=== PATIENT | male | born 1955 | race Caucasian/White ===

== ENCOUNTER 2018-08-28 04:54 | Inpatient (IN) ==
[2018-08-25 16:30] LABS: Appearance,Urine CLEAR; Bilirubin,Urine NEG (NEG); Color,Urine AMBER; Culture Indicated,Urine NO; Glucose,Urine (UA) NEGATIVE (NEG); Ketones,Urine NEG (NEG); Leukocyte Esterase,Urine NEG /uL (NEG); Nitrate,Urine NEG (NEG); Protein,Urine NEG (NEG); Specific Gravity,Urine 1.021 (1.000-1.035); Urine Blood NEG mg/dL (<0.03); Urobilinogen,Urine NEG (NEG)
[2018-08-25 19:18] LABS: Basophils # (Auto) 0 K/mcL (0.0-0.3); Basophils % (Auto) 0.4 % (0.0-2.0); Eosinophils # (Auto) 0.1 K/mcL (0.0-0.7); Eosinophils % (Auto) 0.7 % (0.0-7.0); Granulocytes % (Auto) 65.2 % (38.0-78.0); Hemoglobin 11.6 g/dL (13.5-16.5); Lymphocytes # (Auto) 2.5 K/mcL (1.5-4.8); Mean Cell Volume 101.4 fL (80.0-100.0); Mean Corpuscular HGB Conc 32.3 g/dL (31.0-36.0); Mean Platelet Volume 8.7 fL (7.4-10.4); Monocytes # (Auto) 0.7 K/mcL (0.1-0.9); Monocytes % (Auto) 7.7 % (1.0-12.0); Platelet Count 236 K/mcL (140-440); RBC 3.55 M/mcL (4.50-5.90); Red Cell Distribution Width 14.7 % (11.5-14.5); WBC 9.6 K/mcL (4.5-11.0)
[2018-08-25 19:23] LABS: Blood Urea Nitrogen 23 mg/dl (8-23); Calcium 8.2 mg/dl (8.6-10.4); Carbon Dioxide 19 mmol/L (22-30); Chloride 105 mmol/L (96-108); Glomerular Filtration Rate 94; Glucose 99 mg/dL (70-105); Potassium 4.2 mmol/L (3.3-5.1); Sodium 137 mmol/L (133-145)
[2018-08-25 19:47] LABS: Estimated Average Glucose(eAG) 111 mg/dL; Hemoglobin A1C 5.5 % HGB (4.0-6.0)
[2018-08-25 19:59] LABS: Prothrombin Time 12.9 sec (11.9-14.5)
[~2018-08-28 04:54] MED LIST: IPRATROPIUM/ALBUTEROL 3 ML AMPUL.NEB NEB PRN; SCOPOLAMINE 1 PATCH PATCH TOPICAL PRN
[2018-08-28] MEDS ORDERED: 0.9 % SODIUM CHLORIDE 9 ML, KETOROLAC 30 MG, ROPIVACAINE HCL/PF 49.5 ML, EPINEPHrine 0.... IJ SCH (06:00)
[2018-08-28] MEDS ORDERED: ceFAZolin 2 GM in DEXTROSE 5% IN WATER 50 ML IV SCH (06:00)
[2018-08-28] MEDS ORDERED: fentaNYL 100 MCG/2 ML VIAL IV ONE (07:35)
[2018-08-28] MEDS ORDERED: ONDANSETRON 4 MG/2 ML VIAL IV ONE (07:35)
[2018-08-28] MEDS ORDERED: MIDAZOLAM 2 MG/2 ML VIAL IV ONE (07:35)
[2018-08-28] MEDS ORDERED: TRANEXAMIC ACID 1,000 MG/10 ML VIAL IV ONE ×2 (07:35→10:00)
[2018-08-28] MEDS ORDERED: FAMOTIDINE/PF 20 MG/2 ML VIAL IV ONE (07:35)
[2018-08-28] MEDS ORDERED: GLYCOPYRROLATE 0.2 MG/ML VIAL IV ONE (07:35)
[2018-08-28] MEDS ORDERED: ROPIVACAINE HCL/PF 20 ML VIAL IJ ONE (07:35)
[2018-08-28] MEDS ORDERED: GENTAMICIN SULFATE 800 MG/20 ML VIAL IR ONE (07:54)
[2018-08-28] MEDS ORDERED: FLUMAZENIL 0.1 MG/ML ML IV PRN (09:11)
[2018-08-28] MEDS ORDERED: fentaNYL 100 MCG/2 ML VIAL IV PRN (09:11)
[2018-08-28] MEDS ORDERED: ePHEDrine 50 MG/ML AMPUL IV PRN (09:11)
[2018-08-28] MEDS ORDERED: NALOXONE HCL 0.4 MG/ML VIAL IV PRN (09:11)
[2018-08-28] MEDS ORDERED: ONDANSETRON 4 MG/2 ML VIAL IV PRN ×2 (09:11→10:00)
[2018-08-28] MEDS ORDERED: diphenhydrAMINE 50 MG/ML VIAL IV PRN (09:11)
[2018-08-28] MEDS ORDERED: METHOCARBAMOL 1,000 MG/10 ML VIAL IV PRN ×2 (09:11→10:00)
[2018-08-28] MEDS ORDERED: IPRATROPIUM/ALBUTEROL 3 ML AMPUL.NEB NEB PRN (09:11)
[2018-08-28] MEDS ORDERED: ACETAMINOPHEN 1,000 MG/100 ML BOTTLE IV ONE (09:11)
[2018-08-28] MEDS ORDERED: ATROPINE SULFATE 0.4 MG/ML VIAL IV PRN (09:11)
[2018-08-28] MEDS ORDERED: MEPERIDINE 25 MG/ML SYRINGE IV PRN (09:11)
[2018-08-28] MEDS ORDERED: METOPROLOL TARTRATE 5 MG/5 ML VIAL IV PRN (09:11)
[2018-08-28] MEDS ORDERED: HYDROmorphone 2 MG/ML VIAL IV PRN (10:00)
[2018-08-28] MEDS ORDERED: MAGNESIUM HYDROXIDE 30 ML ORAL.SUSP PO PRN (10:00)
[2018-08-28] MEDS ORDERED: POLYETHYLENE GLYCOL 3350 17 GM PACKET PO PRN (10:00)
[2018-08-28] MEDS ORDERED: BENZOCAINE/MENTHOL 1 LOZENGE PO PRN (10:00)
[2018-08-28] MEDS ORDERED: BISACODYL 10 MG SUPP.RECT PR PRN (10:00)
[2018-08-28] MEDS ORDERED: FLEETS ADULT ENEMA PR PRN (10:00)
[2018-08-28] MEDS ORDERED: ALBUTEROL SULFATE 2.5 MG IH PRN (10:05)
[2018-08-28] MEDS ORDERED: ALBUTEROL SULFATE 1 PUFF INHALER IH PRN (10:05)
--- NOTE | 2018-08-28 10:09 | Orthopedic Procedure Note ---
Date of procedure: Note initiated : 08/28/18 at 10:07 am Service Date, if different from initiated Date: [] Pre-op diagnosis: DJD left knee Post-op diagnosis: same Procedure: tkr using MIKE Grafts/Implants: 5 FEMUR, 5 TIBIA, 10 INSERT, 32 ASYMMETRIC PATELLA Anesthesia: spinal Surgeon: Edmond Ragland Record Tabulating Clerk: Jan Foreman Estimated blood loss: 50 Pathology: none sent Description of procedure: SEE ABOVE Condition: stable Disposition: PACU
--- NOTE | 2018-08-28 10:34 | XRay Report ---
HISTORY: Postop left knee arthroplasty FINDINGS: There is a well positioned total knee prosthesis. There is no fracture or abnormal soft tissue calcification. Three additional screws have been inserted into the lateral aspect of the distal shaft of the femur and the lateral metaphyseal region. IMPRESSION: Well-positioned knee prosthesis Interpreted and Authenticated by: Phan Johnson 08/28/18
[2018-08-28] MEDS: 0.9 % SODIUM CHLORIDE 1,000 ML IV SCH (10:54)
[2018-08-28] MEDS: CARBIDOPA/LEVODOPA 25/100 TABLET PO SCH ×3 (11:19→22:13)
--- NOTE | 2018-08-28 12:47 | Operative Note ---
DATE OF OPERATION: 08/28/2018 PREOPERATIVE DIAGNOSIS: Degenerative joint disease of the left knee. POSTOPERATIVE DIAGNOSIS: Degenerative joint disease of the left knee. OPERATION: Left total knee replacement. SURGEON: Edmond Ragland MD TAPE EDITOR: Jan Foreman PA-C. The PA's assistance was required for the safe and efficient completion of the entire case. This provider's expertise and technical skill were required throughout the case. The PA assisted with preoperative coordination, intraoperative retraction, wound closure, dressing and splint application, as well as postoperative documentation and care coordination. ANESTHESIA: Spinal done by Vonda Mayes CRNA. TOURNIQUET TIME: 109 minutes. ESTIMATED BLOOD LOSS: 50 mL SUMMARY OF PROCEDURE: General anesthesia was attained. The left leg was prepped and draped. The patient's previous incisions were reopened and connected. These were taken down to the quadriceps and medial retinacular layer sharply. The vastus split was used. The medial retinaculum was split as well. Two slit incisions were made in the quadriceps for the femoral array and the pins were placed as well as the array. A small stab incision was made in the anterior tibia below the incision. Holes were drilled in the tibia and the pins placed for the tibial array. The tibial array was placed. The exposure was completed. The medial retinaculum was elevated. The fat pad was debrided. The anterior menisci resected. The ACL graft was removed. The anterior soft tissue was elevated off of the femur. The center of the head was located. 40 anatomic landmarks were located on the femur and the tibia. The medial malleolus and lateral malleolus were identified with the probe as well. The patella was done first. It measured 26 mm in thickness and a 10 mm resection was done. The patella sized to a 32. The registration was then completed by popping the holes on the robotic program using the probe. The cuts were then made in the femur and the bone removed. The cuts were made in the tibia as well. The rotation of the tibia was adjusted. The two screws which had been placed for his ACL graft were then pinned to the placement of the tibia. These were located; one was deep to the bone and an osteotomy was made over it and the two screws removed. They were large fragment AO screws. After completion of the tibial cut, the rotation of the tibia was adjusted. The broach was used in the tibia after adjusting rotation. The tibia sized to a 5. The stem hole was drilled as well. The femur was next trialed. There were still some posterior osteophytes and these were meticulously debrided until the femur fit well. The bone surfaces were irrigated. The posterior blocks were placed with a polymodal solution. The components were cemented in. The knee was left in full extension while the cement set up. Excess cement was removed. The IT band looked quite tight. This was released. Balancing had been done using the MIKE system and excellent balanced knee was achieved with no instability in flexion or full extension. The tourniquet was let down. All bleeding points were coagulated. The quadriceps medial retinacular splits were closed with running Stratafix. The subcutaneous tissue was closed with buried 2-0 Monocryl after thorough irrigation and the skin was closed with karina. A sterile compressive dressing was applied. The sponge and needle count was correct. The patient tolerated the procedure well and was taken to the recovery room in stable condition. [id number] Job ID: [id number] Doc ID: [id number] Edmond Ragland MD
[2018-08-28] MEDS: HYDROcodone/APAP 10/325MG TABLET PO PRN ×2 (13:02→22:16)
[2018-08-28] MEDS ORDERED: FERROUS GLUCONATE 324 MG TABLET PO SCH (14:00)
[2018-08-28] MEDS: DIVALPROEX 125 MG CAP.SPRINK PO SCH ×2 (14:06→22:04)
[2018-08-28] MEDS: ENTACAPONE PO SCH ×2 (14:09→22:00)
[2018-08-28] MEDS: LEVODOPA PO SCH ×2 (14:09→22:00)
[2018-08-28] MEDS: CARBIDOPA PO SCH ×2 (14:09→22:00)
[2018-08-28] MEDS: 0.9 % SODIUM CHLORIDE 10 ML SYRINGE IV SCH (14:10)
[2018-08-28] MEDS: ceFAZolin 1 GM VIAL IV SCH (15:07)
[2018-08-28] MEDS ORDERED: PRAMIPEXOLE DI HCL 4.5 MG PO SCH (21:00)
[2018-08-28] MEDS ORDERED: DIVALPROEX SODIUM 250 MG TAB.ER.24H PO SCH (21:00)
[2018-08-28] MEDS ORDERED: MELATONIN 3 MG TABLET PO SCH (21:00)
[2018-08-28] MEDS ORDERED: SENNOSIDES 1 TABLET PO SCH (21:00)
[2018-08-28] MEDS ORDERED: Budesonide/Formoterol Fumarate [Symbicort] 160-4.5 mcg Inhaler INH SCH (21:00)
[2018-08-28] MEDS ORDERED: ZIPRASIDONE HCL 80 MG PO SCH (21:00)
[2018-08-28] MEDS ORDERED: ARIPIPRAZOLE 20 MG TABLET PO SCH (21:00)
[2018-08-28] MEDS: lamoTRIgine 100 MG TABLET PO SCH (21:58)
[2018-08-28] MEDS: TOPIRAMATE 200 MG PO SCH (22:01)
[2018-08-28] MEDS: ASPIRIN 81 MG TAB.CHEW PO SCH (22:07)
[2018-08-28] MEDS: DOCUSATE SODIUM 100 MG CAPSULE PO SCH (22:07)
[2018-08-28] MEDS ORDERED: ceFAZolin 1 GM VIAL ONE (23:00)
[2018-08-29] MEDS: 0.9 % SODIUM CHLORIDE 1,000 ML IV SCH (00:24)
[2018-08-29] MEDS: 0.9 % SODIUM CHLORIDE 10 ML SYRINGE IV SCH ×2 (02:13→05:38)
[2018-08-29] MEDS: ceFAZolin 1 GM VIAL IV SCH (02:14)
[2018-08-29] MEDS: HYDROcodone/APAP 10/325MG TABLET PO PRN (04:11)
[2018-08-29] MEDS: CARBIDOPA/LEVODOPA 25/100 TABLET PO SCH ×2 (05:37→08:18)
[2018-08-29] MEDS: ENTACAPONE PO SCH ×2 (05:38→08:39)
[2018-08-29] MEDS: LEVODOPA PO SCH ×2 (05:38→08:39)
[2018-08-29] MEDS: CARBIDOPA PO SCH ×2 (05:38→08:39)
[2018-08-29] MEDS ORDERED: OXYBUTYNIN CHLORIDE 5 MG TABLET PO SCH (06:00)
[2018-08-29] MEDS ORDERED: LEVOTHYROXINE 75 MCG TABLET PO SCH (07:30)
[2018-08-29] MEDS: ASPIRIN 81 MG TAB.CHEW PO SCH (08:17)
[2018-08-29] MEDS: DOCUSATE SODIUM 100 MG CAPSULE PO SCH (08:17)
[2018-08-29] MEDS: DIVALPROEX 125 MG CAP.SPRINK PO SCH (08:19)
[2018-08-29] MEDS: TOPIRAMATE 200 MG PO SCH (08:40)
[2018-08-29] MEDS: lamoTRIgine 100 MG TABLET PO SCH (08:59)
--- NOTE | 2018-08-29 09:46 | Discharge Summary ---
Ortho Discharge - TKA - Patient Instructions Diet: Regular Diet Activity: activity as tolerated Total Knee Protocol: For Total Knee: Start ROM CYRUS with stationary bike or rocking chair. Work on gaining full extension of knee. Posterior dislocation precautions provided. Hip abductor strengthening and gait training instructions provided. Apply Cryocuff as instructed. Dressing Care: May shower in 2 days Patient Education: Aspirin (By mouth), Total Knee Replacement (DC) Additional Instructions: Discharge Instructions: Do the exercises at home that physical therapy gave you. Weight bearing as tolerated. Wear comfortable clothing for physical therapy. You are scheduled to start physical therapy at [facility] ([phone]) on August Take your prescription, photo ID, insurance cards, and current medication list with you to your first physical therapy appointment. Take your prescription to orange picking supervisor any medication or equipment (such as walker, crutches, toilet riser or C.P.M.) You have the Aquacel Ag dressing, leave in place for 7 days then remove. If dressing becomes soiled (turns black), remove and use gauze 4x4 dressing and silvasorb ointment and change daily. You may shower with dressing on, pat dry after shower. You may start showering on post op day #2. No soaking in tub/pool/jacuzzi. To avoid constipation while taking any narcotic pain medication, take an over the counter stool softener/laxative. Use your Cryocuff or ice packs as directed, on for 20 minutes at a time throughout the day. This and elevation will help with pain and swelling. Call your physician for fevers above 100.5 or pain not controlled by medication. Your prescriptions are with your discharge information. Some medications were electronically transmitted to your pharmacy of choice. Take Aspirin as prescribed to prevent blood clots (see medication list). - Follow Up Plan Follow Up Appointments: Jan Foreman PA-C [Physician Hat Braider] - Disposition: Home, Self-Care Prognosis: Good Rehab Potential: Good I certify that the patient requires SNF services: No Overall status at discharge: patient is progressing back to baseline - Orders For Discharge Prescriptions: Aspirin 81 mg PO BID #40 tab.chew HYDROcodone/APAP 10/325MG [[place] 10-325Mg] 1 tab PO Q4HP PRN #40 tab PRN Reason: Pain Level 3-6
--- NOTE | 2018-08-29 09:49 | Discharge Summary ---
Providers - Providers Patient information: Note initiated : 08/29/18 at 9:47 am Service Date, if different from initiated Date: [] Patient: Rohan Arcos 63 y/o M admitted on 08/28/18 for Left Total Taz Knee Arthroplasty and Hardware . Chief Complaint: [] Date of admission: 08/28/18 Discharge date: 08/29/18 Attending physician: Edmond Ragland Hospitalization Hospital course: had Left TKR on 08/28. No complications or problems Discharge diagnosis: DJD left knee Exam - Exam Clean and dry: Yes Weight bearing status: full Ortho Discharge - TKA - Patient Instructions Diet: Regular Diet Activity: activity as tolerated Total Knee Protocol: For Total Knee: Start ROM CYRUS with stationary bike or rocking chair. Work on gaining full extension of knee. Posterior dislocation precautions provided. Hip abductor strengthening and gait training instructions provided. Apply Cryocuff as instructed. Patient Education: Aspirin (By mouth), Total Knee Replacement (DC) Additional Instructions: Discharge Instructions: Do the exercises at home that physical therapy gave you. Weight bearing as tolerated. Wear comfortable clothing for physical therapy. You are scheduled to start physical therapy at [facility] ([phone]) on August Take your prescription, photo ID, insurance cards, and current medication list with you to your first physical therapy appointment. Take your prescription to pickle water pump operator any medication or equipment (such as walker, crutches, toilet riser or C.P.M.) You have the Aquacel Ag dressing, leave in place for 7 days then remove. If dressing becomes soiled (turns black), remove and use gauze 4x4 dressing and silvasorb ointment and change daily. You may shower with dressing on, pat dry after shower. You may start showering on post op day #2. No soaking in tub/pool/jacuzzi. To avoid constipation while taking any narcotic pain medication, take an over the counter stool softener/laxative. Use your Cryocuff or ice packs as directed, on for 20 minutes at a time throughout the day. This and elevation will help with pain and swelling. Call your physician for fevers above 100.5 or pain not controlled by medication. Your prescriptions are with your discharge information. Some medications were electronically transmitted to your pharmacy of choice. Take Aspirin as prescribed to prevent blood clots (see medication list). - Follow Up Plan Follow Up Appointments: Jan Foreman PA-C [Physician Principal Gifts Officer] - Disposition: Home, Self-Care Prognosis: Good Rehab Potential: Good I certify that the patient requires SNF services: No - Orders For Discharge Prescriptions: Aspirin 81 mg PO BID #40 tab.chew HYDROcodone/APAP 10/325MG [Julian 10-325Mg] 1 tab PO Q4HP PRN #40 tab PRN Reason: Pain Level 3-6 Pending Studies Resuscitation Status Full Code Diet Consistent Carbohydrate Diet Start SatAug 28 1012 Hydrocodone Bitart/Acetaminophen (Julian 10/325mg) 0 tab PO Q4HP PRN PRN Reason: PAIN LEVEL 3-6 Last Admin: 08/29/18 04:11 Dose: 2 tab Documented by: Admin: 08/28/18 22:16 Dose: 2 tab Documented by: Admin: 08/28/18 13:02 Dose: 2 tab Documented by: MAUREEN Aspirin (Aspirin) 81 mg PO BID [facility] Last Admin: 08/29/18 08:17 Dose: 81 mg Documented by: Admin: 08/28/18 22:07 Dose: 81 mg Documented by: JERMAIN Carbidopa/Levodopa (Sinemet 25/100) 1 tab PO QID@,,, [facility] Last Admin: 08/29/18 08:18 Dose: 1 tab Documented by: Admin: 08/29/18 05:37 Dose: 1 tab Documented by: Admin: 08/28/18 22:13 Dose: 1 tab Documented by: Admin: 08/28/18 14:06 Dose: 1 tab Documented by: Admin: 08/28/18 11:19 Dose: 1 tab Documented by: MAUREEN Divalproex Sodium (Depakote Sprinkles) 500 mg PO TID@ [facility] Last Admin: 08/29/18 08:19 Dose: 500 mg Documented by: Admin: 08/28/18 22:04 Dose: 500 mg Documented by: Admin: 08/28/18 14:06 Dose: 500 mg Documented by: MAUREEN Divalproex Sodium (Depakote Er) 1,000 mg PO HS [facility] Last Admin: 08/28/18 22:05 Dose: 1,000 mg Documented by: JERMAIN Docusate Sodium (Colace) 100 mg PO BID [facility] Last Admin: 08/29/18 08:17 Dose: 100 mg Documented by: Admin: 08/28/18 22:07 Dose: 100 mg Documented by: JERMAIN Ferrous Gluconate (Fergon) 324 mg PO DAILY@1400 [facility] Last Admin: 08/28/18 14:06 Dose: 324 mg Documented by: MAUREEN Sodium Chloride (Sodium Chloride 0.9%) 1,000 mls @ 75 mls/hr IV .[id number] [facility] Last Admin: 08/29/18 00:24 Dose: 75 mls/hr Documented by: Infusion: 08/29/18 00:14 Dose: 75 mls/hr Documented by: Admin: 08/28/18 10:54 Dose: 75 mls/hr Documented by: MAUREEN Lamotrigine (Lamictal) 250 mg PO BID [facility] Last Admin: 08/29/18 08:59 Dose: 250 mg Documented by: Admin: 08/28/18 21:58 Dose: 250 mg Documented by: JERMAIN Levothyroxine Sodium (Synthroid) 75 mcg PO ACB [facility] Last Admin: 08/29/18 07:24 Dose: 75 mcg Documented by: SUSI Melatonin (Melatonin 3mg Tablet) 9 mg PO HS [facility] Last Admin: 08/28/18 22:06 Dose: 9 mg Documented by: JERMAIN Oxybutynin Chloride (Ditropan) 5 mg PO DAILY@06 [facility] Last Admin: 08/29/18 05:37 Dose: 5 mg Documented by: JERMAIN Budesonide/Formoterol Fumarate [Symbicort] 160-4.5 Mcg Inhaler 1 dose INH BID [facility] Last Admin: 08/29/18 02:11 Dose: 1 dose Documented by: JERMAIN Carbidopa/Levodopa/Entacapone [Stalevo] Tab 1 dose PO QID@,,, [facility] Last Admin: 08/29/18 08:39 Dose: 1 dose Documented by: Admin: 08/29/18 05:38 Dose: 1 dose Documented by: Admin: 08/28/18 22:00 Dose: 1 dose Documented by: Admin: 08/28/18 14:09 Dose: 1 dose Documented by: MAUREEN Pramipexole Di-Hcl [ Pramipexole Er] 4.5 Mg Tab 1 dose PO [facility] Last Admin: 08/28/18 22:01 Dose: 1 dose Documented by: JERMAIN Topiramate [ Topiramate Er] 200 Mg Tab 1 dose PO BID [facility] Last Admin: 08/29/18 08:40 Dose: 1 dose Documented by: [email or web address] Admin: 08/28/18 22:01 Dose: 1 dose Documented by: JERMAIN Ziprasidone Hcl [ (Geodon] 80 Mg Cap) 2 dose PO HS [facility] Last Admin: 08/28/18 21:59 Dose: 2 dose Documented by: JERMAIN Senna (Senokot) 2 tab PO [facility] Last Admin: 08/28/18 22:07 Dose: 2 tab Documented by: JERMAIN Sodium Chloride (Saline Flush) 10 ml IV Q8 [facility] Last Admin: 08/29/18 05:38 Dose: 10 ml Documented by: Admin: 08/29/18 02:13 Dose: 10 ml Documented by: Admin: 08/28/18 14:10 Dose: 10 ml Documented by: MAUREEN Shift Summary 08/29/18 04:36 Shift Summary by Brittany Harley A/O x4, SBA w/ fww to bathroom and uses urinal. Ambulated in the [facility] last evening with PT. IV to LFA w/NS @75/hr. Pain 8/10 Left knee, received 2 Julian at 0411. Left knee NICHOLAS wrap with drainage quarter sized on lower portion. Slept several hours last night. at bedside, plans to discharge today. Initialized on 08/29/18 04:36 - END OF NOTE
== END 2018-08-29 11:11 | disposition home or self-care (01) | DRG 470 ==
LOC: MEDSUR 04:54
PROVIDERS: ADMIT Orthopaedic Surgery Foot and Ankle Surgery; ATTEND Orthopaedic Surgery Foot and Ankle Surgery

== ENCOUNTER 2020-01-28 04:57 | Inpatient (IN) ==
[2020-01-22 13:54] LABS: Appearance,Urine CLEAR (Clear); Bilirubin,Urine Negative (Negative); Color,Urine YELLOW; Culture Indicated,Urine No; Glucose,Urine (UA) Negative (Negative); Ketones,Urine 5 mg/dL (Negative); Leukocyte Esterase,Urine Negative /ug (Negative); Nitrate,Urine Negative (Negative); Protein,Urine Negative (Negative); Specific Gravity,Urine 1.029 (1.000-1.035); Urine Blood Negative (Negative); Urobilinogen,Urine Negative
[2020-01-22 14:26] LABS: Basophils # (Auto) 0.04 K/mcL (0.00-0.20); Basophils % (Auto) 0.7 % (0.0-2.0); Eosinophils # (Auto) 0.26 K/mcL (0.00-0.70); Eosinophils % (Auto) 4.6 % (0.0-7.0); Hematocrit 44.8 % (41.0-55.0); Hemoglobin 14.3 g/dL (13.5-16.5); Lymphocytes # (Auto) 2.07 K/mcL (1.50-4.80); Lymphocytes % (Auto) 36.3 % (15.0-49.0); Mean Cell Volume 102.3 fL (80.0-100.0); Mean Corpuscular HGB Conc 31.9 g/dL (31.0-36.0); Mean Platelet Volume 10.6 fL (7.4-10.4); Monocytes # (Auto) 0.73 K/mcL (0.10-0.90); Monocytes % (Auto) 12.8 % (1.0-12.0); Neutrophils % (Auto) 45.6 % (38.0-78.0); Platelet Count 199 K/mcL (140-440); RBC 4.38 M/mcL (4.50-5.90); Red Cell Distribution Width 12.8 % (11.5-14.5); WBC 5.7 K/mcL (4.5-11.0)
[2020-01-22 15:14] LABS: Blood Urea Nitrogen 23 mg/dL (8-23); Carbon Dioxide 21 mmol/L (22-30); Chloride 110 mmol/L (96-108); Glomerular Filtration Rate 62; Glucose 114 mg/dL (70-105)
[2020-01-22 16:25] LABS: Estimated Average Glucose(eAG) 120 mg/dL; Hemoglobin A1C 5.8 % Hgb (4.0-6.0)
[2020-01-28] MEDS ORDERED: IPRATROPIUM/ALBUTEROL 3 ML AMPUL.NEB NEB PRN ×2 (05:00→08:52)
[2020-01-28] MEDS ORDERED: SCOPOLAMINE 1 PATCH PATCH TOPICAL PRN (05:00)
[2020-01-28 05:59] LABS: POC INR 1.1 (0.8-1.2); POC Pro Time 12.7 sec (11.9-14.5)
[2020-01-28] MEDS ORDERED: ceFAZolin 2 GM in DEXTROSE 5% IN WATER 50 ML IV SCH (06:00)
[2020-01-28] MEDS ORDERED: PREGABALIN 75 MG CAPSULE PO SCH (06:00)
[2020-01-28] MEDS ORDERED: CELECOXIB 200 MG CAPSULE PO SCH (06:00)
[2020-01-28] MEDS ORDERED: 0.9 % SODIUM CHLORIDE 9 ML, KETOROLAC 30 MG, ROPIVACAINE HCL/PF 49.5 ML, EPINEPHrine 0.... IJ SCH (06:00)
[2020-01-28] MEDS ORDERED: oxyCODONE 10 MG TAB.ER.12H PO SCH (06:00)
[2020-01-28] MEDS ORDERED: KETAMINE 100 MG/ML ML ONE (07:43)
[2020-01-28] MEDS ORDERED: PROPOFOL 200 MG/20 ML VIAL IV ONE (07:43)
[2020-01-28] MEDS ORDERED: GENTAMICIN SULFATE 800 MG/20 ML VIAL IR ONE (08:06)
[2020-01-28] MEDS ORDERED: PROMETHAZINE 25 MG/ML VIAL IV PRN (08:52)
[2020-01-28] MEDS ORDERED: ONDANSETRON 4 MG/2 ML VIAL IV PRN ×2 (08:52→09:40)
[2020-01-28] MEDS ORDERED: fentaNYL 100 MCG/2 ML VIAL IV PRN (08:52)
[2020-01-28] MEDS ORDERED: ACETAMINOPHEN 1,000 MG/100 ML BOTTLE IV ONE (08:52)
[2020-01-28] MEDS ORDERED: METHOCARBAMOL 1,000 MG/10 ML VIAL IV PRN ×2 (08:52→09:45)
[2020-01-28] MEDS ORDERED: LACTATED RINGERS 250 ML IV PRN (08:52)
[2020-01-28] MEDS ORDERED: NALOXONE HCL 0.4 MG/ML VIAL IV PRN (08:52)
[2020-01-28] MEDS ORDERED: LACTATED RINGERS 1,000 ML IV SCH (09:00)
--- NOTE | 2020-01-28 09:39 | XRay Report ---
CLINICAL INFORMATION: LEFT KNEE REVISION COMPARISON: None. FINDINGS: Single lateral view submitted shows total knee prostheses anatomically aligned on the basis of this single view. No osseous abnormality. IMPRESSION: Total knee prostheses anatomically aligned Interpreted and Authenticated by: Mio Connell 01/28/20
[2020-01-28] MEDS ORDERED: BISACODYL 10 MG SUPP.RECT PR PRN (09:40)
[2020-01-28] MEDS ORDERED: MAGNESIUM HYDROXIDE 30 ML ORAL.SUSP PO PRN (09:40)
[2020-01-28] MEDS ORDERED: TRANEXAMIC ACID 1,000 MG/10 ML VIAL IV ONE (09:40)
[2020-01-28] MEDS ORDERED: FLEETS ADULT ENEMA PR PRN (09:40)
[2020-01-28] MEDS ORDERED: POLYETHYLENE GLYCOL 3350 17 GM PACKET PO PRN (09:40)
[2020-01-28] MEDS ORDERED: BENZOCAINE/MENTHOL 1 LOZENGE PO PRN (09:40)
[2020-01-28] MEDS ORDERED: morphine 4 MG/ML VIAL IV PRN (09:45)
[2020-01-28] MEDS ORDERED: DEXTROSE 50% 50 ML VIAL IV PRN (09:45)
[2020-01-28] MEDS ORDERED: DEXTROSE 31 GM ORAL.SUSP PO PRN (09:45)
[2020-01-28] MEDS ORDERED: LIDOCAINE PATCH TOPICAL PRN (09:48)
[2020-01-28] MEDS ORDERED: ALBUTEROL SULFATE 200 PUFF INHALER IH PRN (09:48)
[2020-01-28] MEDS ORDERED: METHOCARBAMOL 500 MG TABLET PO PRN (09:48)
[2020-01-28] MEDS ORDERED: ALBUTEROL SULFATE 2.5 MG IH PRN (09:48)
[2020-01-28] MEDS ORDERED: METHOCARBAMOL 750 MG TABLET PO PRN (09:48)
--- NOTE | 2020-01-28 09:52 | Brief Operative Note ---
Brief Operative Note Date of procedure: 01/28/20 Pre-op diagnosis: instability right knee replacement Post-op diagnosis: same Procedure: liner vrevision Grafts/Implants: Yes Anesthesia: spinal Complications: none Surgeon: Edmond Ragland Maintenance Coordinator: Ramo Perez Estimated blood loss (cc): 100 Tourniquet Time (Minutes): 53 Specimens Removed/Pathology: none sent Condition: stable Disposition: PACU
--- NOTE | 2020-01-28 09:53 | Brief Operative Note ---
Brief Operative Note Date of procedure: 01/28/20 Surgeon: Edmond Ragland
[2020-01-28] MEDS ORDERED: ACETAMINOPHEN 325 MG TABLET PO PRN (10:11)
--- NOTE | 2020-01-28 10:16 | XRay Report ---
CLINICAL INFORMATION: revision knee replacement- rmove brace for XR, the COMPARISON: None. FINDINGS: Total knee prostheses is anatomically aligned. There are three screws extending through the lateral distal femoral metaphysis. No osseous abnormality. Soft tissue swelling seen as expected IMPRESSION: Total knee prostheses in anatomic alignment Interpreted and Authenticated by: Mio Connell 01/28/20
[2020-01-28] MEDS: 0.45 % SODIUM CHLORIDE 1,000 ML IV SCH ×2 (10:53→22:39)
[2020-01-28] MEDS: oxyCODONE HCL 5 MG TABLET PO PRN ×3 (10:57→21:17)
[2020-01-28] MEDS: INSULIN LISPRO 1 UNIT/0.01 ML UNIT SQ SCH ×3 (12:12→21:22)
[2020-01-28] MEDS: 0.9 % SODIUM CHLORIDE 10 ML SYRINGE IV SCH ×2 (12:15→21:25)
[2020-01-28] MEDS: KETOROLAC 15 MG/ML VIAL IV SCH ×2 (12:32→17:39)
[2020-01-28] MEDS: FERROUS GLUCONATE 324 MG TABLET PO SCH (13:43)
[2020-01-28] MEDS: CARBIDOPA/LEVODOPA 25/100 TABLET PO SCH ×2 (13:44→21:16)
[2020-01-28] MEDS: ENTACAPONE 200 MG PO SCH ×3 (13:44→21:30)
[2020-01-28] MEDS ORDERED: CARBIDOPA LEVODOPA ENTACAPONE PO SCH (14:00)
[2020-01-28] MEDS: DIVALPROEX SODIUM 250 MG TABLET PO SCH ×2 (15:21→21:13)
[2020-01-28] MEDS: CARBOXYMETHYLCELLULOSE SODIUM 1 EACH DROPER.GEL OU SCH ×2 (15:22→21:24)
[2020-01-28] MEDS: ceFAZolin 1 GM VIAL IV SCH ×2 (15:23→22:38)
[2020-01-28] MEDS: OMEPRAZOLE 20 MG CAPSULE PO SCH (16:55)
[2020-01-28] MEDS ORDERED: DOCUSATE SODIUM 100 MG CAPSULE PO SCH (21:00)
[2020-01-28] MEDS ORDERED: NON FORMULARY MEDICATION 1 DOSE MISCELL (Melatonin 10 MG) PO SCH (21:00)
[2020-01-28] MEDS: DOCUSATE SODIUM 100 MG CAPSULE PO SCH (21:12)
[2020-01-28] MEDS: ASPIRIN 81 MG TAB.CHEW PO SCH (21:14)
[2020-01-28] MEDS: OLANZapine 5 MG TABLET PO SCH (21:14)
[2020-01-28] MEDS: OXYBUTYNIN CHLORIDE 5 MG TABLET PO SCH (21:15)
[2020-01-28] MEDS: SENNOSIDES 1 TABLET PO SCH (21:15)
[2020-01-28] MEDS: MELATONIN 3 MG TABLET PO SCH (21:15)
[2020-01-28] MEDS: lamoTRIgine 25 MG TABLET PO SCH (21:16)
[2020-01-28] MEDS: Budesonide-Formoterol [Symbicort] Inhaler INH SCH (21:23)
[2020-01-28] MEDS: ARIPIPRAZOLE 20 MG TABLET PO SCH (21:30)
[2020-01-29] MEDS: KETOROLAC 15 MG/ML VIAL IV SCH ×4 (00:10→17:37)
[2020-01-29] MEDS: oxyCODONE HCL 5 MG TABLET PO PRN ×5 (02:37→21:49)
[2020-01-29] MEDS: CARBIDOPA/LEVODOPA 25/100 TABLET PO SCH ×4 (05:32→21:47)
[2020-01-29] MEDS: 0.9 % SODIUM CHLORIDE 10 ML SYRINGE IV SCH ×3 (06:02→21:58)
[2020-01-29 06:48] LABS: Hemoglobin 11.6 g/dL (13.5-16.5)
[2020-01-29] MEDS: INSULIN LISPRO 1 UNIT/0.01 ML UNIT SQ SCH ×4 (07:31→21:54)
[2020-01-29] MEDS: OMEPRAZOLE 20 MG CAPSULE PO SCH ×2 (07:44→16:28)
[2020-01-29] MEDS: LEVOTHYROXINE 75 MCG TABLET PO SCH (07:44)
[2020-01-29 07:45] LABS: Prothrombin Time 13.8 sec (11.9-14.5)
--- NOTE | 2020-01-29 08:47 | Orthopedic Progress Note ---
SUBJECTIVE Subjective Patient information: Note initiated : 01/29/20 at 8:44 am Service Date, if different from initiated Date: [] Patient: Rohan Arcos 64 y/o M admitted on 01/28/20 for Left Total Knee Arthroplasty Revision Liner. Chief Complaint: [] Constitutional Vitals: Vital Signs Temp Pulse Resp BP Pulse Ox 98.6 F 59 L 18 101/62 91 01/29/20 07:31 01/29/20 07:31 01/29/20 07:31 01/29/20 07:31 01/29/20 07:31 Period Temp Pulse Resp BP Sys/Kwon Pulse Ox Last 24 Hr 97.9 F-98.6 F 50-63 14-18 93-125/51-95 91-98 Intake and Output 01/28/20 01/29/20 01/29/20 21:59 05:59 13:59 Intake Total 160 1883 Output Total 575 850 Balance -415 1033 Weight 253 lb 8 oz Intake & Output: Intake & Output 01/28/20 01/29/20 01/29/20 21:59 05:59 13:59 Intake Total 160 1883 Output Total 575 850 Balance -415 1033 Weight 253 lb 8 oz Intake: IV 883 Sodium Chloride 0.45% 1,000 ml 883 @ 75 mls/hr IV .[id number] [facility] Rx# :[id number] Oral 160 1000 Output: Void Amount 575 850 Other: Meal Dinner Dinner Percent of Meal Consumed 80% 100% Feeding Ability Independent Urine Appearance Clear Clear Urine Color Dark Harper Dark Yellow Urine Odor Normal Normal Expanded Upper Extremity Exam General: Present normal inspection Expanded Lower Extremity Exam Knee exam: Present normal inspection, swelling and tenderness Neurological Exam Neurological exam: Present abnormal gait Additional comments: able to df right foot and ankle feels unsteady walking OBJ DATA Labs CBC & Chem 7: 01/29/20 05:12 01/22/20 11:45 Labs: Abnormal Lab Results 01/29/20 05:12 Hgb 11.6 L Hct 36.0 L Meds: Medications Acetaminophen (Tylenol) 650 mg PO Q4-6HP PRN PRN Reason: PAIN/FEVER > 101 Albuterol Sulfate (Ventolin) 1 puff IH DAILYP PRN PRN Reason: Shortness Of Breath Artificial Tears (Refresh Celluvisc) 1 each OU TID [facility] Last Admin: 01/28/20 21:24 Dose: 1 each Documented by: Aspirin (Aspirin) 81 mg PO BID [facility] Last Admin: 01/28/20 21:14 Dose: 81 mg Documented by: Bisacodyl (Dulcolax) 10 mg MS Q2-3DAYS PRN PRN Reason: Constipation Carbidopa/Levodopa (Sinemet 25/100) 2 tab PO QID@06,09,14,21 [facility] Last Admin: 01/29/20 05:32 Dose: 2 tab Documented by: Cyanocobalamin (Vitamin B-12) 500 mcg PO QDAY [facility] Dextrose (Dextrose 50%) 0 ml IV UD PRN PRN Reason: Hypoglycemia Diagnostic Test (Pha) (Accu-Chek) 1 each FS [facility] Last Admin: 01/29/20 07:29 Dose: 1 each Documented by: Divalproex Sodium (Depakote Delayed Release) 500 mg PO TID [facility] Last Admin: 01/28/20 21:13 Dose: 500 mg Documented by: Docusate Sodium (Colace) 200 mg PO BID [facility] Last Admin: 01/28/20 21:12 Dose: 200 mg Documented by: Ferrous Gluconate (Fergon) 324 mg PO DAILY@1400 [facility] Last Admin: 01/28/20 13:43 Dose: 324 mg Documented by: Glucose (Insta-Glucose) 15 gm PO PRN PRN PRN Reason: Hypoglycemia Sodium Chloride (Sodium Chloride 0.45%) 1,000 mls @ 75 mls/hr IV .[id number] [facility] Last Admin: 01/28/20 22:39 Dose: 75 mls/hr Documented by: Insulin Human Lispro (Humalog) 0 unit SQ [facility]; Protocol Last Admin: 01/29/20 07:31 Dose: Not Given Documented by: Ketorolac Tromethamine (Toradol) 15 mg IV Q6 [facility] Stop: 01/30/20 06:01 Last Admin: 01/29/20 05:32 Dose: 15 mg Documented by: Lamotrigine (Lamictal) 150 mg PO BID [facility] Last Admin: 01/28/20 21:16 Dose: 150 mg Documented by: Levothyroxine Sodium (Synthroid) 75 mcg PO ACB [facility] Last Admin: 01/29/20 07:44 Dose: 75 mcg Documented by: Lidocaine (Lidoderm) 1 patch TOPICAL DAILYP PRN PRN Reason: Pain Magnesium Hydroxide (Milk Of Magnesia) 30 ml PO BIDP PRN PRN Reason: Constipation Magnesium Oxide (Magnesium Oxide) 400 mg PO DAILY [facility] Melatonin (Melatonin 3mg Tablet) 3 mg PO QHS [facility] Last Admin: 01/28/20 21:15 Dose: 3 mg Documented by: Methocarbamol (Robaxin) 750 mg IV Q6HP PRN PRN Reason: Muscle Spasm Methocarbamol (Robaxin) 750 mg PO TID PRN PRN Reason: Muscle Spasm Last Admin: 01/28/20 19:20 Dose: 750 mg Documented by: Morphine Sulfate (Morphine) 0 mg IV Q1HP PRN; Protocol PRN Reason: Per Pain Protocol Olanzapine (Zyprexa) 5 mg PO QHS [facility] Last Admin: 01/28/20 21:14 Dose: 5 mg Documented by: Omeprazole (Prilosec) 20 mg PO BIDAC [facility] Last Admin: 01/29/20 07:44 Dose: 20 mg Documented by: Ondansetron HCl (Zofran) 4 mg IV Q4HP PRN; Protocol PRN Reason: Nausea And Vomiting Oxybutynin Chloride (Ditropan) 5 mg PO BID [facility] Last Admin: 01/28/20 21:15 Dose: 5 mg Documented by: Oxycodone HCl (Roxicodone) 0 mg PO Q4HP PRN; Protocol PRN Reason: Per Pain Protocol Last Admin: 01/29/20 07:44 Dose: 10 mg Documented by: Budesonide- Formoterol [ Symbicort] Inhaler 1 dose INH BID [facility] Last Admin: 01/28/20 21:23 Dose: Not Given Documented by: Entacapone [Comtan] (200 Mg Tab) 1 dose PO QID [facility] Last Admin: 01/28/20 21:30 Dose: 1 dose Documented by: Polyethylene Glycol (Miralax) 17 gm PO DAILYP PRN PRN Reason: Constipation Senna (Senokot) 2 tab PO HS [facility] Last Admin: 01/28/20 21:15 Dose: 2 tab Documented by: Sodium Biphosphate/Sodium Phosphate (Fleets Adult) 1 dose MS Q3-4DAYS PRN PRN Reason: Constipation Sodium Chloride (Saline Flush) 10 ml IV Q8 [facility] Last Admin: 01/29/20 06:02 Dose: Not Given Documented by: Throat Lozenges (Cepacol) 1 lozenge PO PRN PRN PRN Reason: Sore Throat Vitamin D (Vitamin D3) 2,000 unit PO DAILY [facility] A/P Narrative A/P Narrative: one day s/p revision; gait unsteady. Continue inhouse care and PT for 24 more hours Time Spent With Patient Time: Total time spent is greater than 50% in coordination of care (as documented) at patient's floor/unit and/or counseling patient:
[2020-01-29] MEDS ORDERED: ASPIRIN 81 MG TAB.CHEW PO SCH (09:00)
[2020-01-29] MEDS: CYANOCOBALAMIN (VITAMIN B-12) 500 MCG TABLET PO SCH (09:06)
[2020-01-29] MEDS: VITAMIN D3 1,000 UNIT TABLET PO SCH (09:06)
[2020-01-29] MEDS: DOCUSATE SODIUM 100 MG CAPSULE PO SCH ×2 (09:07→21:46)
[2020-01-29] MEDS: ASPIRIN 81 MG TAB.CHEW PO SCH ×2 (09:07→21:53)
[2020-01-29] MEDS: lamoTRIgine 25 MG TABLET PO SCH ×2 (09:07→21:48)
[2020-01-29] MEDS: DIVALPROEX SODIUM 250 MG TABLET PO SCH ×3 (09:08→21:45)
[2020-01-29] MEDS: MAGNESIUM OXIDE 400 MG TABLET PO SCH (09:08)
[2020-01-29] MEDS: ENTACAPONE 200 MG PO SCH ×4 (09:09→21:44)
[2020-01-29] MEDS: OXYBUTYNIN CHLORIDE 5 MG TABLET PO SCH ×2 (09:09→21:47)
[2020-01-29] MEDS: Budesonide-Formoterol [Symbicort] Inhaler INH SCH ×2 (09:09→21:55)
[2020-01-29] MEDS: CARBOXYMETHYLCELLULOSE SODIUM 1 EACH DROPER.GEL OU SCH ×3 (09:11→21:55)
[2020-01-29] MEDS: 0.45 % SODIUM CHLORIDE 1,000 ML IV SCH (11:52)
[2020-01-29] MEDS: FERROUS GLUCONATE 324 MG TABLET PO SCH (13:01)
[2020-01-29] MEDS ORDERED: MAG HYDROX/AL HYDROX/SIMETH 30 ML ORAL.SUSP PO PRN (15:55)
[2020-01-29] MEDS ORDERED: CALCIUM CARBONATE 500 MG TAB.CHEW CHEWED PRN (15:57)
[2020-01-29] MEDS: ARIPIPRAZOLE 20 MG TABLET PO SCH (21:45)
[2020-01-29] MEDS: SENNOSIDES 1 TABLET PO SCH (21:46)
[2020-01-29] MEDS: MELATONIN 3 MG TABLET PO SCH (21:55)
[2020-01-29] MEDS: OLANZapine 5 MG TABLET PO SCH (21:56)
[2020-01-30] MEDS: KETOROLAC 15 MG/ML VIAL IV SCH ×2 (00:24→04:51)
[2020-01-30] MEDS: 0.45 % SODIUM CHLORIDE 1,000 ML IV SCH ×2 (01:43→13:49)
[2020-01-30] MEDS: 0.9 % SODIUM CHLORIDE 10 ML SYRINGE IV SCH ×3 (04:51→22:00)
[2020-01-30] MEDS: CARBIDOPA/LEVODOPA 25/100 TABLET PO SCH ×4 (05:11→21:57)
[2020-01-30] MEDS: oxyCODONE HCL 5 MG TABLET PO PRN ×2 (05:12→20:44)
[2020-01-30 06:46] LABS: Hematocrit 34.1 % (41.0-55.0); Hemoglobin 11.3 g/dL (13.5-16.5)
[2020-01-30 07:20] LABS: Prothrombin Time 13.4 sec (11.9-14.5)
[2020-01-30] MEDS: LEVOTHYROXINE 75 MCG TABLET PO SCH (07:30)
[2020-01-30] MEDS: INSULIN LISPRO 1 UNIT/0.01 ML UNIT SQ SCH ×4 (07:30→21:59)
[2020-01-30] MEDS: OMEPRAZOLE 20 MG CAPSULE PO SCH ×2 (07:30→16:31)
--- NOTE | 2020-01-30 08:18 | Orthopedic Progress Note ---
SUBJECTIVE Subjective Patient information: Note initiated : 01/30/20 at 8:17 am Service Date, if different from initiated Date: [] Patient: Rohan Arcos 64 y/o M admitted on 01/28/20 for Left Total Knee Arthroplasty Revision Liner. Chief Complaint: [] Principal diagnosis: a little bleeding, pain controlled, more stable on feet Constitutional Vitals: Vital Signs Temp Pulse Resp BP Pulse Ox 98.1 F 67 16 121/65 94 01/30/20 04:00 01/30/20 04:39 01/30/20 04:00 01/30/20 04:00 01/30/20 04:00 Period Temp Pulse Resp BP Sys/Kwon Pulse Ox Last 24 Hr 97.5 F-99.1 F 57-92 15-18 94-123/55-71 91-94 Intake and Output 01/29/20 01/30/20 01/30/20 21:59 05:59 13:59 Intake Total 240 1400 Output Total 500 750 800 Balance -260 650 -800 Weight 254 lb 2 oz Intake & Output: Intake & Output 01/29/20 01/30/20 01/30/20 21:59 05:59 13:59 Intake Total 240 1400 Output Total 500 750 800 Balance -260 650 -800 Weight 254 lb 2 oz Intake: IV 1000 Sodium Chloride 0.45% 1,000 ml 1000 @ 75 mls/hr IV .[id number] [facility] Rx# :[id number] Oral 240 GI Tube Flush 400 Output: Void Amount 500 750 800 Other: Meal Dinner Percent of Meal Consumed 100% Feeding Ability Independent Urine Appearance Clear Clear Clear Urine Color Dark Yellow Bright Yellow Pale [place] Urine Odor Normal Normal Normal Extremities Exam Extremities exam: Present joint swelling, normal capillary refill, normal inspection and Foot pink and warm OBJ DATA Labs CBC & Chem 7: 01/30/20 05:23 01/22/20 11:45 Labs: Abnormal Lab Results 01/30/20 01/29/20 05:23 05:12 Hgb 11.3 L 11.6 L Hct 34.1 L 36.0 L Meds: Medications Acetaminophen (Tylenol) 650 mg PO Q4-6HP PRN PRN Reason: PAIN/FEVER > 101 Al Hydrox/Mg Hydrox/Simethicone (Maalox) 30 ml PO Q4HP PRN PRN Reason: Dyspepsia Albuterol Sulfate (Ventolin) 1 puff IH DAILYP PRN PRN Reason: Shortness Of Breath Artificial Tears (Refresh Celluvisc) 1 each OU TID [facility] Last Admin: 01/29/20 21:55 Dose: 1 each Documented by: Aspirin (Aspirin) 81 mg PO BID [facility] Last Admin: 01/29/20 21:53 Dose: 81 mg Documented by: Bisacodyl (Dulcolax) 10 mg DC Q2-3DAYS PRN PRN Reason: Constipation Calcium Carbonate/Glycine (Tums) 500 - 1,000 mg CHEWED Q6HP PRN PRN Reason: Dyspepsia Last Admin: 01/29/20 16:22 Dose: 500 mg Documented by: Carbidopa/Levodopa (Sinemet 25/100) 2 tab PO QID@06,09,14,21 [facility] Last Admin: 01/30/20 05:11 Dose: 2 tab Documented by: Cyanocobalamin (Vitamin B-12) 500 mcg PO QDAY [facility] Last Admin: 01/29/20 09:06 Dose: 500 mcg Documented by: Dextrose (Dextrose 50%) 0 ml IV UD PRN PRN Reason: Hypoglycemia Diagnostic Test (Pha) (Accu-Chek) 1 each FS ACHS [facility] Last Admin: 01/30/20 07:30 Dose: 1 each Documented by: Divalproex Sodium (Depakote Delayed Release) 500 mg PO TID [facility] Last Admin: 01/29/20 21:45 Dose: 500 mg Documented by: Docusate Sodium (Colace) 200 mg PO BID [facility] Last Admin: 01/29/20 21:46 Dose: 200 mg Documented by: Ferrous Gluconate (Fergon) 324 mg PO DAILY@1400 [facility] Last Admin: 01/29/20 13:01 Dose: 324 mg Documented by: Glucose (Insta-Glucose) 15 gm PO PRN PRN PRN Reason: Hypoglycemia Sodium Chloride (Sodium Chloride 0.45%) 1,000 mls @ 75 mls/hr IV .[id number] [facility] Last Admin: 01/30/20 01:43 Dose: 75 mls/hr Documented by: Insulin Human Lispro (Humalog) [address] [facility]; Protocol Last Admin: 01/30/20 07:30 Dose: Not Given Documented by: Lamotrigine (Lamictal) 150 mg PO BID [facility] Last Admin: 01/29/20 21:48 Dose: 150 mg Documented by: Levothyroxine Sodium (Synthroid) 75 mcg PO ACB [facility] Last Admin: 01/30/20 07:30 Dose: 75 mcg Documented by: Lidocaine (Lidoderm) 1 patch TOPICAL DAILYP PRN PRN Reason: Pain Magnesium Hydroxide (Milk Of Magnesia) 30 ml PO BIDP PRN PRN Reason: Constipation Magnesium Oxide (Magnesium Oxide) 400 mg PO DAILY [facility] Last Admin: 01/29/20 09:08 Dose: 400 mg Documented by: Melatonin (Melatonin 3mg Tablet) 3 mg PO QHS [facility] Last Admin: 01/29/20 21:55 Dose: 3 mg Documented by: Methocarbamol (Robaxin) 750 mg IV Q6HP PRN PRN Reason: Muscle Spasm Methocarbamol (Robaxin) 750 mg PO TID PRN PRN Reason: Muscle Spasm Last Admin: 01/28/20 19:20 Dose: 750 mg Documented by: Morphine Sulfate (Morphine) 0 mg IV Q1HP PRN; Protocol PRN Reason: Per Pain Protocol Olanzapine (Zyprexa) 5 mg PO QHS [facility] Last Admin: 01/29/20 21:56 Dose: 5 mg Documented by: Omeprazole (Prilosec) 20 mg PO BIDAC [facility] Last Admin: 01/30/20 07:30 Dose: 20 mg Documented by: Ondansetron HCl (Zofran) 4 mg IV Q4HP PRN; Protocol PRN Reason: Nausea And Vomiting Last Admin: 01/29/20 09:25 Dose: 4 mg Documented by: Oxybutynin Chloride (Ditropan) 5 mg PO BID [facility] Last Admin: 01/29/20 21:47 Dose: 5 mg Documented by: Oxycodone HCl (Roxicodone) 0 mg PO Q4HP PRN; Protocol PRN Reason: Per Pain Protocol Last Admin: 01/30/20 05:12 Dose: 10 mg Documented by: Budesonide- Formoterol [ Symbicort] Inhaler 1 dose INH BID [facility] Last Admin: 01/29/20 21:55 Dose: Not Given Documented by: Entacapone [Comtan] (200 Mg Tab) 1 dose PO QID [facility] Last Admin: 01/29/20 21:44 Dose: 1 dose Documented by: Polyethylene Glycol (Miralax) 17 gm PO DAILYP PRN PRN Reason: Constipation Senna (Senokot) 2 tab PO HS [facility] Last Admin: 01/29/20 21:46 Dose: 2 tab Documented by: Sodium Biphosphate/Sodium Phosphate (Fleets Adult) 1 dose DC Q3-4DAYS PRN PRN Reason: Constipation Sodium Chloride (Saline Flush) 10 ml IV Q8 [facility] Last Admin: 01/30/20 04:51 Dose: Not Given Documented by: Throat Lozenges (Cepacol) 1 lozenge PO PRN PRN PRN Reason: Sore Throat Vitamin D (Vitamin D3) 2,000 unit PO DAILY [facility] Last Admin: 01/29/20 09:06 Dose: 2,000 unit Documented by: A/P Assessment and plan (1) Total knee replacement status: Status: Acute Comment: stable ; reduced fall risk. discharge (2) Knee joint replacement status: Status: Acute Time Spent With Patient Time: Total time spent is greater than 50% in coordination of care (as documented) at patient's floor/unit and/or counseling patient:
--- NOTE | 2020-01-30 08:23 | Discharge Plan ---
Discharge Instructions - TKA Patient Instructions Total Knee Protocol: For Total Knee: Start ROM CYRUS with stationary bike or rocking chair. Work on gaining full extension of knee. Posterior dislocation precautions provided. Hip abductor strengthening and gait training instructions provided. Apply Cryocuff as instructed. Dressing Care: Aquacel Ag - leave on for 5 days Discharge Plan Patient/Caregiver Discharge Instructions Activity: ambulate only with your walker Diet: Consistent Carbohydrate Instructions: Oxycodone/Acetaminophen (By mouth), Laxative, Stool Softeners (By mouth), Revision Total Joint Arthroplasty (DC) Activity Restrictions/Additional Instructions: Resume consistent carbohydrate diet as tolerated Follow up with physical therapy of your choice. Contact the office on Wednesday 01/31 to schedule. Activity as per physician and physical therapy. Do the exercises at home that physical therapy gave you. Weight bearing as tolerated on left side Ambulate only with your walker. Increase activity as tolerated Use your ice packs as directed, on for 20 minutes at a time throughout the day. The icing of your knee, use of NICHOLAS wrap, and elevation will help with pain and swelling. You have the silver dressing covering your surgical incision; leave this in place for 7-14 days. If it becomes saturated with blood or body fluids, remove it and apply dry dressings; change these daily and as needed. You may start showering on post op day #2, which is . Remove the NICHOLAS bandage. The silver dressing can get wet. Pat it dry so that the dressing is not dislodged. Do not scrub dressing. Do not use soaps, creams, or lotions over the dressing. Pat dry. Replace NICHOLAS. No bathing or soaking in hot tub until released by surgeon. Prescriptions: No Action aripiprazole [Abilify] 10 MG tablet 10 mg PO HS RF: 0 albuterol sulfate [ProAir HFA] 8.5 GM HFA aerosol inhaler 1 puff IH DAILYP PRN (Reason: Shortness Of Breath) RF: 0 lamotrigine 25 MG tablet 150 mg PO BID RF: 0 levothyroxine 75 MCG tablet 75 mcg PO ACB RF: 0 divalproex 500 MG tablet extended release 24 hr 500 mg PO TID RF: 0 docusate sodium 100 MG capsule 200 mg PO BID RF: 0 carbidopa-levodopa 1 EACH tablet 2 tab PO QID@06,09,14,21 RF: 0 oxybutynin chloride 5 MG tablet 5 mg PO BID RF: 0 [id number]-vfnuxbmk-rxwcuotihs 1 EACH tablet 1 tab PO QID@06,,, RF: 0 ferrous gluconate 324 MG tablet 324 mg PO DAILY@1400 RF: 0 albuterol sulfate 2.5 MG/0.5 ML solution for nebulization 2.5 mg IH DAILYP PRN (Reason: Shortness Of Breath) RF: 0 budesonide-formoterol 10.2 GM HFA aerosol inhaler 10.2 gm IH BID RF: 0 methocarbamol 500 mg Tablet 750 mg PO TID PRN (Reason: Muscle Spasm) RF: 0 acetaminophen 325 mg Tablet 650 mg PO Q6H RF: 0 magnesium oxide 420 mg Tablet 420 mg PO DAILY RF: 0 olanzapine 5 mg Tablet 5 mg PO QHS RF: 0 cyanocobalamin (vitamin B-12) 500 mcg Tablet 500 mcg PO QDAY RF: 0 omeprazole 20 mg Capsule,Delayed Release(Dr/Ec) 20 mg PO BID RF: 0 oxycodone 10 mg Tablet 10 mg PO TID PRN (Reason: Pain) RF: 0 cholecalciferol (vitamin D3) 50 mcg (2,000 unit) Capsule 50 mcg PO QDAY RF: 0 melatonin 10 mg Tablet,Ext Release Multiphase 10 mg PO HS RF: 0 topiramate 150 mg Capsule,Sprinkle,Er 24hr 150 mg PO BID RF: 0 melatonin 5 mg Tablet, Ir And Er, Biphasic 5 mg PO QHS RF: 0 aspirin 81 MG tablet,chewable 81 mg PO DAILY RF: 0 entacapone 200 mg Tablet 200 mg PO QID RF: 0 methocarbamol 750 mg Tablet 750 mg PO TID PRN (Reason: Muscle Spasm) RF: 0 psyllium Powder 2 tsp PO QDAY PRN (Reason: Constipation) RF: 0 lidocaine [Lidoderm] 5 % Adhesive Patch,Medicated 1 patch topical PRN PRN (Reason: Pain) RF: 0 carboxymethylcellulose sodium 1 % Drops 1 drp OPHTHALMIC (EYE) TID RF: 0 Follow Up Plan Follow up with: Jan Foreman PA-C [Physician Chief Catalyst Operator] - 02/10/20 11:10 am Patient Disposition: [facility] ([place] Hospital Course: slow recovery of balance, ow did fine Assessment: no complications Plan of Treatment: PT Prognosis: Fair Rehab Potential: Fair I certify that the patient requires SNF services: Yes Overall status at discharge: patient is not back to baseline Discharge Orders: Discharge Order (Routine); Ordered 01/30/20 Ordered By: Edmond Ragland
--- NOTE | 2020-01-30 08:34 | Discharge Plan ---
DC Instructions-General Patient Instructions Dressing Care: Chetna Ag - leave on for 5 days Discharge Plan Patient/Caregiver Discharge Instructions Activity: ambulate only with your walker Diet: Consistent Carbohydrate Prescriptions: No Action aripiprazole [Abilify] 10 MG tablet 10 mg PO HS RF: 0 albuterol sulfate [ProAir HFA] 8.5 GM HFA aerosol inhaler 1 puff IH DAILYP PRN (Reason: Shortness Of Breath) RF: 0 lamotrigine 25 MG tablet 150 mg PO BID RF: 0 levothyroxine 75 MCG tablet 75 mcg PO ACB RF: 0 divalproex 500 MG tablet extended release 24 hr 500 mg PO TID RF: 0 docusate sodium 100 MG capsule 200 mg PO BID RF: 0 carbidopa-levodopa 1 EACH tablet 2 tab PO QID@,,, RF: 0 oxybutynin chloride 5 MG tablet 5 mg PO BID RF: 0 [id number]-kjavhwfy-gmhiertnru 1 EACH tablet 1 tab PO QID@,,, RF: 0 ferrous gluconate 324 MG tablet 324 mg PO DAILY@1400 RF: 0 albuterol sulfate 2.5 MG/0.5 ML solution for nebulization 2.5 mg IH DAILYP PRN (Reason: Shortness Of Breath) RF: 0 budesonide-formoterol 10.2 GM HFA aerosol inhaler 10.2 gm IH BID RF: 0 methocarbamol 500 mg Tablet 750 mg PO TID PRN (Reason: Muscle Spasm) RF: 0 acetaminophen 325 mg Tablet 650 mg PO Q6H RF: 0 magnesium oxide 420 mg Tablet 420 mg PO DAILY RF: 0 olanzapine 5 mg Tablet 5 mg PO QHS RF: 0 cyanocobalamin (vitamin B-12) 500 mcg Tablet 500 mcg PO QDAY RF: 0 omeprazole 20 mg Capsule,Delayed Release(Dr/Ec) 20 mg PO BID RF: 0 oxycodone 10 mg Tablet 10 mg PO TID PRN (Reason: Pain) RF: 0 cholecalciferol (vitamin D3) 50 mcg (2,000 unit) Capsule 50 mcg PO QDAY RF: 0 melatonin 10 mg Tablet,Ext Release Multiphase 10 mg PO HS RF: 0 topiramate 150 mg Capsule,Sprinkle,Er 24hr 150 mg PO BID RF: 0 melatonin 5 mg Tablet, Ir And Er, Biphasic 5 mg PO QHS RF: 0 aspirin 81 MG tablet,chewable 81 mg PO DAILY RF: 0 entacapone 200 mg Tablet 200 mg PO QID RF: 0 methocarbamol 750 mg Tablet 750 mg PO TID PRN (Reason: Muscle Spasm) RF: 0 psyllium Powder 2 tsp PO QDAY PRN (Reason: Constipation) RF: 0 lidocaine [Lidoderm] 5 % Adhesive Patch,Medicated 1 patch topical PRN PRN (Reason: Pain) RF: 0 carboxymethylcellulose sodium 1 % Drops 1 drp OPHTHALMIC (EYE) TID RF: 0 Follow Up Plan Follow up with: Jan Foreman PA-C [Physician Knot Saw Operator] - 02/10/20 11:10 am Patient Disposition: Home, Self-Care Hospital Course: slow recovery of balance, ow did fine Assessment: no complications Plan of Treatment: outot PT Prognosis: Fair Rehab Potential: Fair Overall status at discharge: patient is not back to baseline Discharge Orders: Discharge Order (Routine); Ordered 01/30/20 Ordered By: Edmond Ragland
[2020-01-30] MEDS: MAGNESIUM OXIDE 400 MG TABLET PO SCH (09:25)
[2020-01-30] MEDS: DOCUSATE SODIUM 100 MG CAPSULE PO SCH ×2 (09:26→21:56)
[2020-01-30] MEDS: DIVALPROEX SODIUM 250 MG TABLET PO SCH ×3 (09:26→21:57)
[2020-01-30] MEDS: CYANOCOBALAMIN (VITAMIN B-12) 500 MCG TABLET PO SCH (09:28)
[2020-01-30] MEDS: ASPIRIN 81 MG TAB.CHEW PO SCH ×2 (09:28→21:56)
[2020-01-30] MEDS: lamoTRIgine 25 MG TABLET PO SCH ×2 (09:28→21:57)
[2020-01-30] MEDS: VITAMIN D3 1,000 UNIT TABLET PO SCH (09:29)
[2020-01-30] MEDS: OXYBUTYNIN CHLORIDE 5 MG TABLET PO SCH ×2 (09:29→21:57)
[2020-01-30] MEDS: ENTACAPONE 200 MG PO SCH ×4 (09:30→21:55)
[2020-01-30] MEDS: CARBOXYMETHYLCELLULOSE SODIUM 1 EACH DROPER.GEL OU SCH ×3 (09:30→21:59)
[2020-01-30] MEDS: Budesonide-Formoterol [Symbicort] Inhaler INH SCH ×2 (09:30→21:59)
[2020-01-30] MEDS: FERROUS GLUCONATE 324 MG TABLET PO SCH (13:34)
[2020-01-30] MEDS: ARIPIPRAZOLE 20 MG TABLET PO SCH (21:55)
[2020-01-30] MEDS: SENNOSIDES 1 TABLET PO SCH (21:56)
[2020-01-30] MEDS: OLANZapine 5 MG TABLET PO SCH (21:57)
[2020-01-30] MEDS: MELATONIN 3 MG TABLET PO SCH (21:57)
[2020-01-31] MEDS: oxyCODONE HCL 5 MG TABLET PO PRN ×5 (01:06→20:50)
[2020-01-31] MEDS: CARBIDOPA/LEVODOPA 25/100 TABLET PO SCH ×4 (05:35→20:48)
[2020-01-31] MEDS: 0.45 % SODIUM CHLORIDE 1,000 ML IV SCH ×2 (05:35→16:37)
[2020-01-31] MEDS: 0.9 % SODIUM CHLORIDE 10 ML SYRINGE IV SCH ×3 (05:35→20:50)
--- NOTE | 2020-01-31 06:44 | Orthopedic Progress Note ---
SUBJECTIVE Subjective Patient information: Note initiated : 01/31/20 at 6:40 am Service Date, if different from initiated Date: [] Patient: Rohan Arcos 64 y/o M admitted on 01/28/20 for Left Total Knee Arthroplasty Revision Liner. Chief Complaint: [No new complaints. Continues to complain of pain more than with his prior surgeries. Medications are helping. Has ambulated x2 but not far and gets a bit light headed per him from the pain. Denies chest pain, nausea, shortness of breath.] Principal diagnosis: a little bleeding, pain controlled, more stable on feet Constitutional Vitals: Vital Signs Temp Pulse Resp BP Pulse Ox 98.4 F 66 18 120/69 94 01/31/20 04:00 01/31/20 04:33 01/31/20 04:00 01/31/20 04:00 01/31/20 04:00 Period Temp Pulse Resp BP Sys/Kwon Pulse Ox Last 24 Hr 98.3 F-99.4 F 61-68 18-20 113-129/67-77 92-95 Intake and Output 01/30/20 01/31/20 01/31/20 21:59 05:59 13:59 Intake Total 480 600 Output Total 1300 1200 Balance -820 -600 Weight 254 lb 2 oz Intake & Output: Intake & Output 01/30/20 01/31/20 01/31/20 21:59 05:59 13:59 Intake Total 480 600 Output Total 1300 1200 Balance -820 -600 Weight 254 lb 2 oz Intake: Oral 480 600 Output: Void Amount 1300 1200 Other: Meal Dinner Percent of Meal Consumed 100% Feeding Ability Independent Urine Appearance Clear Clear Urine Color Dark Yellow Dark Yellow Urine Odor Normal Normal Additional findings Additional findings: General: alert oriented and appropriate. NAD Left knee: hinged knee brace in place with compressive dressing. Silver dressing mostly saturated with leakage proximally saturated his splint as well. Incision well approximated with what appears a bit of hematoma under proximal portion of incision. Foot warm well perfused. OBJ DATA Labs CBC & Chem 7: 01/30/20 05:23 01/22/20 11:45 Labs: Abnormal Lab Results 01/30/20 01/29/20 05:23 05:12 Hgb 11.3 L 11.6 L Hct 34.1 L 36.0 L Meds: Medications Acetaminophen (Tylenol) 650 mg PO Q4-6HP PRN PRN Reason: PAIN/FEVER > 101 Al Hydrox/Mg Hydrox/Simethicone (Maalox) 30 ml PO Q4HP PRN PRN Reason: Dyspepsia Albuterol Sulfate (Ventolin) 1 puff IH DAILYP PRN PRN Reason: Shortness Of Breath Artificial Tears (Refresh Celluvisc) 1 each OU TID [facility] Last Admin: 01/30/20 21:59 Dose: 1 each Documented by: Aspirin (Aspirin) 81 mg PO BID [facility] Last Admin: 01/30/20 21:56 Dose: 81 mg Documented by: Bisacodyl (Dulcolax) 10 mg NM Q2-3DAYS PRN PRN Reason: Constipation Calcium Carbonate/Glycine (Tums) 500 - 1,000 mg CHEWED Q6HP PRN PRN Reason: Dyspepsia Last Admin: 01/29/20 16:22 Dose: 500 mg Documented by: Carbidopa/Levodopa (Sinemet 25/100) 2 tab PO QID@06,09,14, [facility] Last Admin: 01/31/20 05:35 Dose: 2 tab Documented by: Cyanocobalamin (Vitamin B-12) 500 mcg PO QDAY [facility] Last Admin: 01/30/20 09:28 Dose: 500 mcg Documented by: Dextrose (Dextrose 50%) 0 ml IV UD PRN PRN Reason: Hypoglycemia Diagnostic Test (Pha) (Accu-Chek) 1 each FS ACHS [facility] Last Admin: 01/30/20 21:10 Dose: 1 each Documented by: Divalproex Sodium (Depakote Delayed Release) 500 mg PO TID [facility] Last Admin: 01/30/20 21:57 Dose: 500 mg Documented by: Docusate Sodium (Colace) 200 mg PO BID [facility] Last Admin: 01/30/20 21:56 Dose: 200 mg Documented by: Ferrous Gluconate (Fergon) 324 mg PO DAILY@1400 [facility] Last Admin: 01/30/20 13:34 Dose: 324 mg Documented by: Glucose (Insta-Glucose) 15 gm PO PRN PRN PRN Reason: Hypoglycemia Sodium Chloride (Sodium Chloride 0.45%) 1,000 mls @ 75 mls/hr IV .[id number] [facility] Last Admin: 01/31/20 05:35 Dose: Not Given Documented by: Insulin Human Lispro (Humalog) 0 unit SQ ACHS [facility]; Protocol Last Admin: 01/30/20 21:59 Dose: Not Given Documented by: Lamotrigine (Lamictal) 150 mg PO BID [facility] Last Admin: 01/30/20 21:57 Dose: 150 mg Documented by: Levothyroxine Sodium (Synthroid) 75 mcg PO ACB [facility] Last Admin: 01/30/20 07:30 Dose: 75 mcg Documented by: Lidocaine (Lidoderm) 1 patch TOPICAL DAILYP PRN PRN Reason: Pain Magnesium Hydroxide (Milk Of Magnesia) 30 ml PO BIDP PRN PRN Reason: Constipation Magnesium Oxide (Magnesium Oxide) 400 mg PO DAILY [facility] Last Admin: 01/30/20 09:25 Dose: 400 mg Documented by: Melatonin (Melatonin 3mg Tablet) 3 mg PO QHS [facility] Last Admin: 01/30/20 21:57 Dose: 3 mg Documented by: Methocarbamol (Robaxin) 750 mg IV Q6HP PRN PRN Reason: Muscle Spasm Methocarbamol (Robaxin) 750 mg PO TID PRN PRN Reason: Muscle Spasm Last Admin: 01/28/20 19:20 Dose: 750 mg Documented by: Morphine Sulfate (Morphine) 0 mg IV Q1HP PRN; Protocol PRN Reason: Per Pain Protocol Olanzapine (Zyprexa) 5 mg PO QHS [facility] Last Admin: 01/30/20 21:57 Dose: 5 mg Documented by: [facility] Admin: 01/30/20 16:31 Dose: 20 mg Documented by: Ondansetron HCl (Zofran) 4 mg IV Q4HP PRN; Protocol PRN Reason: Nausea And Vomiting Last Admin: 01/29/20 09:25 Dose: 4 mg Documented by: Oxybutynin Chloride (Ditropan) 5 mg PO BID [facility] Last Admin: 01/30/20 21:57 Dose: 5 mg Documented by: Oxycodone HCl (Roxicodone) 0 mg PO Q4HP PRN; Protocol PRN Reason: Per Pain Protocol Last Admin: 01/31/20 05:34 Dose: 10 mg Documented by: Budesonide- Formoterol [ Symbicort] Inhaler 1 dose INH BID [facility] Last Admin: 01/30/20 21:59 Dose: Not Given Documented by: Entacapone [Comtan] (200 Mg Tab) 1 dose PO QID [facility] Last Admin: 01/30/20 21:55 Dose: 1 dose Documented by: Polyethylene Glycol (Miralax) 17 gm PO DAILYP PRN PRN Reason: Constipation Senna (Senokot) 2 tab PO HS [facility] Last Admin: 01/30/20 21:56 Dose: 2 tab Documented by: Sodium Biphosphate/Sodium Phosphate (Fleets Adult) 1 dose NM Q3-4DAYS PRN PRN Reason: Constipation Sodium Chloride (Saline Flush) 10 ml IV Q8 [facility] Last Admin: 01/31/20 05:35 Dose: 10 ml Documented by: Throat Lozenges (Cepacol) 1 lozenge PO PRN PRN PRN Reason: Sore Throat Vitamin D (Vitamin D3) 2,000 unit PO DAILY [facility] Last Admin: 01/30/20 09:29 Dose: 2,000 unit Documented by: A/P Assessment and plan (1) Knee joint replacement status: Status: Acute Comment: POD 3 s/p revision left total knee arthroplasty with liner exchange. -- PT/OT- wbat with hinged knee in place -- changed dressing and painted incision with betadine. The serous blister along the lateral aspect of the knee decompressed with removal of silver dressing. Left roof intact. Monitor and applied a dry compression dressing for today. -- Will need new hinged knee brace as the proximal portion was covered in blood. nurse aware. -- h/h, vitals- stable -- glucose has been well controlled- continue current meds -- oral pain medications- continue -- carbohydrate diet -- prophy: IS, ambulation, asa 81 bid, scd's -- dispo: plan is for rehab tomorrow. Time Spent With Patient Time: Total time spent is greater than 50% in coordination of care (as document ed) at patient's floor/unit and/or counseling patient:
[2020-01-31] MEDS: INSULIN LISPRO 1 UNIT/0.01 ML UNIT SQ SCH ×4 (07:40→20:58)
[2020-01-31] MEDS: LEVOTHYROXINE 75 MCG TABLET PO SCH (07:47)
[2020-01-31] MEDS: OMEPRAZOLE 20 MG CAPSULE PO SCH ×2 (07:47→17:24)
[2020-01-31] MEDS: DOCUSATE SODIUM 100 MG CAPSULE PO SCH ×2 (08:55→20:49)
[2020-01-31] MEDS: lamoTRIgine 25 MG TABLET PO SCH ×2 (08:56→20:48)
[2020-01-31] MEDS: CYANOCOBALAMIN (VITAMIN B-12) 500 MCG TABLET PO SCH (08:56)
[2020-01-31] MEDS: MAGNESIUM OXIDE 400 MG TABLET PO SCH (08:56)
[2020-01-31] MEDS: ASPIRIN 81 MG TAB.CHEW PO SCH ×2 (08:57→20:48)
[2020-01-31] MEDS: VITAMIN D3 1,000 UNIT TABLET PO SCH (08:57)
[2020-01-31] MEDS: OXYBUTYNIN CHLORIDE 5 MG TABLET PO SCH ×2 (08:57→20:48)
[2020-01-31] MEDS: ENTACAPONE 200 MG PO SCH ×4 (08:59→20:50)
[2020-01-31] MEDS: DIVALPROEX SODIUM 250 MG TABLET PO SCH ×3 (08:59→20:49)
[2020-01-31] MEDS: CARBOXYMETHYLCELLULOSE SODIUM 1 EACH DROPER.GEL OU SCH ×3 (09:00→20:50)
[2020-01-31] MEDS: Budesonide-Formoterol [Symbicort] Inhaler INH SCH ×2 (09:00→20:49)
[2020-01-31] MEDS: FERROUS GLUCONATE 324 MG TABLET PO SCH (13:44)
[2020-01-31] MEDS: MELATONIN 3 MG TABLET PO SCH (20:48)
[2020-01-31] MEDS: OLANZapine 5 MG TABLET PO SCH (20:48)
[2020-01-31] MEDS: ARIPIPRAZOLE 20 MG TABLET PO SCH (20:49)
[2020-01-31] MEDS: SENNOSIDES 1 TABLET PO SCH (20:49)
[2020-02-01] MEDS: oxyCODONE HCL 5 MG TABLET PO PRN ×7 (00:36→22:02)
[2020-02-01] MEDS: 0.9 % SODIUM CHLORIDE 10 ML SYRINGE IV SCH ×3 (04:34→22:28)
[2020-02-01] MEDS: CARBIDOPA/LEVODOPA 25/100 TABLET PO SCH ×4 (05:55→22:02)
[2020-02-01] MEDS: LEVOTHYROXINE 75 MCG TABLET PO SCH (06:54)
[2020-02-01] MEDS: INSULIN LISPRO 1 UNIT/0.01 ML UNIT SQ SCH ×4 (06:54→22:05)
[2020-02-01] MEDS: OMEPRAZOLE 20 MG CAPSULE PO SCH ×2 (06:54→16:53)
[2020-02-01] MEDS ORDERED: TRANEXAMIC ACID 1,000 MG/10 ML VIAL IV ONE (07:36)
[2020-02-01] MEDS: 0.45 % SODIUM CHLORIDE 1,000 ML IV SCH ×2 (07:44→22:04)
[2020-02-01] MEDS: DOCUSATE SODIUM 100 MG CAPSULE PO SCH ×2 (08:16→22:01)
[2020-02-01] MEDS: VITAMIN D3 1,000 UNIT TABLET PO SCH (08:16)
[2020-02-01] MEDS: ENTACAPONE 200 MG PO SCH ×4 (08:16→22:04)
[2020-02-01] MEDS: lamoTRIgine 25 MG TABLET PO SCH ×2 (08:17→22:02)
[2020-02-01] MEDS: DIVALPROEX SODIUM 250 MG TABLET PO SCH ×3 (08:18→22:01)
[2020-02-01] MEDS: CYANOCOBALAMIN (VITAMIN B-12) 500 MCG TABLET PO SCH (08:18)
[2020-02-01] MEDS: OXYBUTYNIN CHLORIDE 5 MG TABLET PO SCH ×2 (08:18→22:03)
[2020-02-01] MEDS: MAGNESIUM OXIDE 400 MG TABLET PO SCH (08:18)
[2020-02-01] MEDS: CARBOXYMETHYLCELLULOSE SODIUM 1 EACH DROPER.GEL OU SCH ×3 (08:19→22:27)
[2020-02-01 08:36] LABS: Hematocrit 31.8 % (41.0-55.0); Hemoglobin 10.5 g/dL (13.5-16.5)
[2020-02-01] MEDS: Budesonide-Formoterol [Symbicort] Inhaler INH SCH ×2 (08:48→22:27)
--- NOTE | 2020-02-01 10:55 | Operative Note ---
DATE OF OPERATION: 01/28/2020 PREOPERATIVE DIAGNOSIS: Instability, status post left knee replacement with postoperative injury. POSTOPERATIVE DIAGNOSIS: Instability, status post left knee replacement with postoperative injury. PROCEDURE: Liner exchange. ANESTHESIA: General. TOURNIQUET TIME: 53 minutes. DAYTIME CAREGIVER: Varun Borden CRNA. SUMMARY OF PROCEDURE: General anesthesia was obtained. The left leg was prepped and draped. The patient's previous curvilinear incision was reopened. This was taken down sharply to the quadriceps and medial retinaculum. The quadriceps and medial retinacular layer was split longitudinally. The patella was mobilized laterally. To completely mobilize the patella, lateral release was needed. The patient's stability was checked. He had some hyperextension deformity and 4-5 mm in medial and lateral instability. The insert was removed using an osteotome. Trials were then done and the best combination prevention of hyperextension with excellent medial and lateral stability was with a 13 mm insert. This was next inserted and impacted. The ligaments were rechecked and there was excellent stability at this point. A small piece of avulsed bone was noted off of the middle third of the patellar tendon insertion and this was excised. I reinforced the patellar tendon by applying a suture anchor into the piece of avulsed bone and then did a running suture up and down both of #2 FiberWire. The knee was ranged and there was no medial nor lateral instability of the kneecap. The quadriceps and medial retinaculum were closed after thorough irrigation using Stratafix. The lateral retinaculum was partly closed using a running Stratafix as well. The tourniquet was let down. All bleeding points were coagulated. A multinodal block was placed using 50 mL. The subcutaneous tissue was closed with interrupted buried 2-0 Monocryl. The skin was closed with karina. A sterile compressive dressing was applied, followed by brace set at 0-90 degrees (hinged knee brace). Sponge and needle count was correct. The patient tolerated the procedure well and was taken to the recovery room in stable condition. TJF:kh Job ID: [id number] Doc ID: [id number] Edmond Ragland MD
[2020-02-01] MEDS: FERROUS GLUCONATE 324 MG TABLET PO SCH (14:11)
[2020-02-01] MEDS: SENNOSIDES 1 TABLET PO SCH (22:03)
[2020-02-01] MEDS: OLANZapine 5 MG TABLET PO SCH (22:03)
[2020-02-01] MEDS: MELATONIN 3 MG TABLET PO SCH (22:03)
[2020-02-01] MEDS: ARIPIPRAZOLE 20 MG TABLET PO SCH (22:04)
[2020-02-02] MEDS: oxyCODONE HCL 5 MG TABLET PO PRN ×4 (02:22→14:41)
[2020-02-02] MEDS: 0.9 % SODIUM CHLORIDE 10 ML SYRINGE IV SCH ×2 (05:14→14:12)
[2020-02-02] MEDS: CARBIDOPA/LEVODOPA 25/100 TABLET PO SCH ×3 (05:14→13:37)
[2020-02-02] MEDS: OMEPRAZOLE 20 MG CAPSULE PO SCH (07:02)
[2020-02-02] MEDS: LEVOTHYROXINE 75 MCG TABLET PO SCH (07:03)
[2020-02-02] MEDS: INSULIN LISPRO 1 UNIT/0.01 ML UNIT SQ SCH ×2 (07:08→11:07)
[2020-02-02] MEDS: DIVALPROEX SODIUM 250 MG TABLET PO SCH ×2 (09:11→14:41)
[2020-02-02] MEDS: lamoTRIgine 25 MG TABLET PO SCH (09:11)
[2020-02-02] MEDS: DOCUSATE SODIUM 100 MG CAPSULE PO SCH (09:11)
[2020-02-02] MEDS: MAGNESIUM OXIDE 400 MG TABLET PO SCH (09:11)
[2020-02-02] MEDS: VITAMIN D3 1,000 UNIT TABLET PO SCH (09:12)
[2020-02-02] MEDS: CYANOCOBALAMIN (VITAMIN B-12) 500 MCG TABLET PO SCH (09:12)
[2020-02-02] MEDS: OXYBUTYNIN CHLORIDE 5 MG TABLET PO SCH (09:12)
[2020-02-02] MEDS: ENTACAPONE 200 MG PO SCH ×2 (09:12→13:38)
[2020-02-02] MEDS: Budesonide-Formoterol [Symbicort] Inhaler INH SCH (09:12)
[2020-02-02] MEDS: CARBOXYMETHYLCELLULOSE SODIUM 1 EACH DROPER.GEL OU SCH ×2 (09:13→14:41)
[2020-02-02] MEDS: 0.45 % SODIUM CHLORIDE 1,000 ML IV SCH (10:47)
[2020-02-02] MEDS: FERROUS GLUCONATE 324 MG TABLET PO SCH (13:37)
== END 2020-02-02 15:15 | disposition home health service (06) | DRG 488 ==
LOC: MEDSUR 04:57
PROVIDERS: ADMIT Orthopaedic Surgery Foot and Ankle Surgery; ATTEND Orthopaedic Surgery Foot and Ankle Surgery

== ENCOUNTER 2022-01-11 15:10 | Inpatient (IN) ==
[2022-01-11] MEDS ORDERED: IOPAMIDOL 100 ML BOTTLE IV ONE (15:11)
--- NOTE | 2022-01-11 15:32 | Emergency Department Note ---
HPI <Fadi Luong MD - Last Filed: 01/11/22 19:19> General Chief complaint: Weakness Stated complaint: UTI Time Seen by Provider: 01/11/22 15:27 Source: patient Mode of arrival: wheelchair Limitations: no limitations History of Present Illness HPI Narrative: Narrative: Related Data Home Medications Medication Instructions Recorded Confirmed levothyroxine 75 mcg tablet 75 mcg PO ACB 08/14/17 12/22/21 docusate sodium 100 mg capsule 200 mg PO BID 05/09/18 12/22/21 ferrous gluconate 324 mg (37.5 mg 324 mg PO DAILY@1600 05/09/18 12/22/21 iron) tablet cholecalciferol (vitamin D3) 50 50 mcg PO QDAY 01/22/20 12/22/21 mcg (2,000 unit) capsule cyanocobalamin (vitamin B-12) 500 500 mcg PO QDAY 01/22/20 12/01/21 mcg tablet magnesium oxide 420 mg tablet 420 mg PO DAILY 01/22/20 12/22/21 melatonin 10 mg tablet,extended 10 mg PO HS 01/22/20 12/22/21 release,multiphase olanzapine 5 mg tablet 5 mg PO QHS 01/22/20 12/22/21 methocarbamol 750 mg tablet 750 mg PO TID 01/28/20 12/22/21 lidocaine 5 % topical patch 1 patch topical DAILYP PRN Pain 03/03/20 12/22/21 (Lidoderm) naloxone 4 mg/actuation nasal spray 1 spray intranasal Q2M PRN 03/03/20 12/22/21 EXCESSIVE SEDATION urea 10 % lotion 1 applic topical BID 03/03/20 12/22/21 lubiprostone 24 mcg capsule 24 mcg PO BIDCC 03/31/20 12/22/21 (Amitiza) albuterol sulfate 90 mcg/actuation 2 puff inhalation Q6HP PRN 05/20/20 12/22/21 aerosol inhaler shortness of breath or wheezing calcium carbonate 500 mg calcium 1,000 mg PO HS 05/20/20 12/22/21 (1,250 mg) chewable tablet divalproex 500 mg tablet,delayed 500 mg PO TID 05/20/20 12/22/21 release polyethylene glycol 3350 17 gram 17 g PO QDAY 05/20/20 12/22/21 oral powder packet (Miralax) aripiprazole 10 mg tablet 10 mg PO QDAY 09/27/20 12/22/21 ipratropium 0.5 mg-albuterol 3 mg 3 ml inhalation QID PRN 09/27/20 12/22/21 (2.5 mg base)/3 mL nebulization soln istradefylline 40 mg tablet 40 mg PO QDAY 11/16/20 12/22/21 (Nourianz) famotidine 20 mg tablet 20 mg PO BID 01/03/21 12/22/21 gabapentin 100 mg capsule 100 mg PO BID 01/03/21 12/22/21 sucralfate 1 gram tablet 1 g PO QID 01/03/21 12/22/21 dexlansoprazole 60 mg 60 mg PO BID 05/05/21 12/22/21 capsule,biphase delayed release (Dexilant) carboxymethylcellulose sodium 1 % 1 drp ophthalmic (eye) TID 06/05/21 12/22/21 eye liquid gel drops (Refresh Liquigel) diclofenac sodium 1 % topical gel See Rx Instructions topical QID 06/05/21 12/22/21 disposable gloves (Nitrile Exam 06/05/21 12/22/21 Gloves) facial-body wipes 06/05/21 12/22/21 incontinence pad, liner, disp 06/05/21 12/22/21 (Poise Pads) methyl salicylate-menthol topical QID 06/05/21 12/22/21 mometasone 200 mcg/actuation HFA 2 puff inhalation BID 06/05/21 12/22/21 aerosol inhaler oxybutynin chloride 5 mg tablet 5 mg PO BID 06/05/21 12/22/21 underpads 23" X 36" (Air Permeable 06/05/21 12/22/21 Underpad) tiotropium 2.5 mcg-olodaterol 2.5 2 puff inhalation Q24H 08/25/21 12/22/21 mcg/actuation mist for inhalation (Stiolto Respimat) vibegron 75 mg tablet (Gemtesa) 75 mg PO QDAY 08/25/21 12/22/21 carbidopa 25 mg-levodopa 100 mg 3 tab PO QID 09/14/21 12/22/21 tablet opicapone 50 mg capsule (Ongentys) 50 mg PO QHS 09/14/21 12/22/21 amiodarone 200 mg tablet 200 mg PO QDAY 11/23/21 12/22/21 apixaban 5 mg tablet (Eliquis) 5 mg PO BID 11/23/21 12/22/21 colchicine 0.6 mg tablet 0.6 mg PO BID 11/23/21 12/22/21 lamotrigine 150 mg tablet 150 mg PO BID 11/23/21 12/22/21 ondansetron 4 mg disintegrating 4 mg translingual Q4H PRN 11/23/21 12/01/21 tablet oxycodone 10 mg tablet,crush 10 mg PO TID 11/23/21 12/22/21 resistant,extended release 12 hr (OxyContin) topiramate 100 mg capsule 100 mg PO HS 11/23/21 12/22/21 sprinkle,extended release 24 hr topiramate 200 mg capsule 200 mg PO BID 11/23/21 12/22/21 sprinkle,extended release 24 hr furosemide 20 mg tablet 10 mg PO QDAY PRN 12/22/21 12/22/21 Previous Rx's Medication Instructions Recorded Bipap with back up rate #1 ea 05/11/20 Pulse oximeter device #1 ea 05/25/21 tamsulosin 0.4 mg capsule 0.4 mg PO QHS #30 caps 11/15/21 Allergies Allergy/AdvReac Type Severity Reaction Status Date / Time gabapentin Allergy Unknown Unknown Verified 01/11/22 15:20 adhesive AdvReac Intermediate Blister Verified 01/11/22 15:20 amantadine AdvReac Mild Rash Verified 01/11/22 15:20 [place] AdvReac Mild unstable Verified 01/11/22 15:20 vitals sertraline [From Zoloft] AdvReac Mild HEADACHE Verified 01/11/22 15:20 Nonsteroidal Allergy Unknown Unknown Uncoded 12/01/21 17:27 anti-inflammatory RUBBER AdvReac Mild Rash Uncoded 12/01/21 17:27 Review of Systems <Fadi Luong MD - Last Filed: 01/11/22 19:19> ROS ROS Narrative: Narrative: PFSH <Fadi Luong MD - Last Filed: 01/11/22 19:19> Narrative Patient History Narrative: Narrative: Medical/Surgical/Family History All Active Problems (Updated 01/11/22 @ 21:34 by Franklyn Andrade MD) Abrasion (Chronic) Acute blistering eruption of skin (Chronic) Latex sensitivity (Chronic) Weakness (Chronic) Opioid dependence, uncomplicated (Chronic) Low back pain (Chronic) Pain in left ankle and joints of left foot (Chronic) Pain, joint, knee, left (Chronic) Chronic pain (Chronic) Bipolar disorder (Chronic) Parkinsons disease (Chronic) Type 2 diabetes mellitus without complications (Chronic) PTSD (post-traumatic stress disorder) (Chronic) Hypothyroidism (Chronic) History of tobacco use (Chronic) Anxiety disorder (Chronic) GERD (gastroesophageal reflux disease) (Chronic) Depression (Chronic) Spinal stenosis, lumbar region with neurogenic claudication (Chronic) Bronchitis (Chronic) Recurrent aspiration events (Chronic) Cough (Chronic) Total knee replacement status (Chronic) Knee joint replacement status (Chronic) Chest pain (Chronic) Pneumonia (Chronic) Lumbar radiculopathy (Chronic) Complex sleep apnea syndrome (Chronic) Status post total knee replacement, right (Chronic) Other specified disorder of male genital organs (Chronic) Abnormal level of hormones in specimens from male genital organs (Chronic) Borderline personality disorder (Chronic) Chronic obstructive pulmonary disease, unspecified (Chronic) Chronic sinusitis (Chronic) Constipation, unspecified (Chronic) 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) Dehydration (Chronic) Disorders of magnesium metabolism, unspecified (Chronic) Headache (Chronic) Hypogonadism (Chronic) Impaired glucose tolerance (Chronic) Impotence (Chronic) Insomnia, unspecified (Chronic) Iron deficiency (Chronic) Magnesium deficiency (Chronic) Major depressive disorder, recurrent, moderate (Chronic) Other fracture of fourth lumbar vertebra, sequela (Chronic) Other intervertebral disc degeneration, lumbar region (Chronic) Other specified abnormal findings of blood chemistry (Chronic) Other specified postprocedural states (Chronic) Pain in right knee (Chronic) Peripheral vascular disease (Chronic) Prediabetes (Chronic) Problems in relationship with spouse or partner (Chronic) Unspecified bacterial pneumonia (Chronic) Unspecified disorder of binocular vision (Chronic) Unspecified hearing loss, bilateral (Chronic) Unspecified osteoarthritis, unspecified site (Chronic) Urinary incontinence (Chronic) Vitamin B deficiency, unspecified (Chronic) Aspiration pneumonia (Chronic) Seizure disorder (Chronic) BPH NOS w/o ur obs/LUTS (Chronic) Overactive bladder (Chronic) Post-void dribbling (Chronic) Epididymal cyst (Chronic) Testicular cyst (Chronic) Urinary frequency (Chronic) Hypoxemia (Chronic) Paralyzed hemidiaphragm (Chronic) Nocturnal hypoxemia (Chronic) URI (upper respiratory infection) (Chronic) Other low back pain (Chronic) Muscle weakness (generalized) (Chronic) Chest pain (Acute) Gross hematuria (Acute) H/O renal calculi (Chronic) Aspiration into airway (Chronic) CHF (congestive heart failure) (Acute) Colitis (Acute) Medical History Abnormal level of hormones in specimens from male genital organs Abrasion Acute blistering eruption of skin Anxiety disorder Aspiration into airway Aspiration pneumonia Bipolar disorder Borderline personality disorder Bronchitis Chest pain Chronic obstructive pulmonary disease, unspecified Chronic pain Chronic sinusitis Complex sleep apnea syndrome Constipation, unspecified Conversion disorder with seizures or convulsions Cough Dehydration Depression Disorders of magnesium metabolism, unspecified GERD (gastroesophageal reflux disease) Headache History of tobacco use History of vasovasostomy Hypogonadism Hypothyroidism Hypoxemia Impaired glucose tolerance Impotence Insomnia, unspecified Iron deficiency Latex sensitivity Low back pain Magnesium deficiency Major depressive disorder, recurrent, moderate Muscle weakness (generalized) Opioid dependence, uncomplicated Other fracture of fourth lumbar vertebra, sequela Other intervertebral disc degeneration, lumbar region Other low back pain Other specified abnormal findings of blood chemistry Other specified disorder of male genital organs Pain in left ankle and joints of left foot Pain in right knee Pain, joint, knee, left Parkinsons disease Peripheral vascular disease Pneumonia Prediabetes Problems in relationship with spouse or partner PTSD (post-traumatic stress disorder) Recurrent aspiration events Seizure disorder Spinal stenosis, lumbar region with neurogenic claudication Type 2 diabetes mellitus without complications Unspecified bacterial pneumonia Unspecified disorder of binocular vision Unspecified hearing loss, bilateral Unspecified osteoarthritis, unspecified site Urinary incontinence Vitamin B deficiency, unspecified Weakness Surgical History History of adenectomy History of appendectomy 1974 History of bone graft upper jaw History of cholecystectomy History of colonoscopy History of gastric bypass History of surgery on wrist History of tonsillectomy 1958 History of tooth extraction History of vasectomy 1984 Hx of sinus surgery multiple Knee joint replacement status POD 3 s/p revision left total knee arthroplasty with liner exchange. -- PT/OT- wbat with hinged knee in place -- changed dressing and painted incision with betadine. The serous blister along the lateral aspect of the knee decompressed with removal of silver dressing. Left roof intact. Monitor and applied a dry compression dressing for today. -- Will need new hinged knee brace as the proximal portion was covered in blood. nurse aware. -- h/h, vitals- stable -- glucose has been well controlled- continue current meds -- oral pain medications- continue -- carbohydrate diet -- prophy: IS, ambulation, asa 81 bid, scd's -- dispo: plan is for rehab tomorrow. No pertinent past surgical history Other specified postprocedural states Total knee replacement status stable ; reduced fall risk. discharge Family History Father , age 49 Stroke Heart attack HTN (hypertension) Diabetes Mother HTN (hypertension) Brother HTN (hypertension) Social History Smoking Status: Former smoker Alcohol Intake Frequency: former alcohol drinker Substance Use: does not use Exam <Fadi Luong MD - Last Filed: 01/11/22 19:19> Narrative Narrative: Narrative: General Limitations: no limitations Course <Fadi Luong MD - Last Filed: 01/11/22 19:19> Vital Signs Vital signs: Vital Signs Temperature 97 F 01/11/22 15:16 Pulse Rate 65 01/11/22 15:16 Respiratory Rate 14 01/11/22 15:16 Blood Pressure 93/63 01/11/22 15:16 Pulse Oximetry (%) 95 01/11/22 15:16 Oxygen Delivery Method 01/11/22 15:16 Temperature 97 F 01/11/22 15:16 Pulse Rate 54 L 01/11/22 19:19 Respiratory Rate 15 01/11/22 21:01 Blood Pressure 95/63 01/11/22 21:01 Pulse Oximetry (%) 96 01/11/22 19:19 Oxygen Delivery Method 01/11/22 19:19 <Franklyn Andrade MD - Last Filed: 01/11/22 21:34> Consultations Consultation #1: I spoke to the hospitalist, Dr. Yepez. He agreed to evaluate this patient for local admission Time: 21:32 Vital Signs Vital signs: Vital Signs Temperature 97 F 01/11/22 15:16 Pulse Rate 65 01/11/22 15:16 Respiratory Rate 14 01/11/22 15:16 Blood Pressure 93/63 01/11/22 15:16 Pulse Oximetry (%) 95 01/11/22 15:16 Oxygen Delivery Method 01/11/22 15:16 Temperature 97 F 01/11/22 15:16 Pulse Rate 54 L 01/11/22 19:19 Respiratory Rate 15 01/11/22 21:01 Blood Pressure 95/63 01/11/22 21:01 Pulse Oximetry (%) 96 01/11/22 19:19 Oxygen Delivery Method 01/11/22 19:19 MDM <Fadi Luong MD - Last Filed: 01/11/22 19:19> MDM Narrative Medical decision making narrative: Narrative: Lab Data Result diagrams: 01/11/22 16:07 Labs: Lab Results 01/11/22 01/11/22 01/11/22 Range/Units 16:07 16:07 16:12 WBC 7.1 (4.5-11.0) K/mcL RBC 4.28 L (4.63-6.08) M/mcL Hgb 13.6 L (13.7-17.5) g/dL Hct 41.7 (40.1-51.0) % POC Hct 44.0 (41-55) MCV 97.4 (80.0-100.0) fL MCH 31.8 (26.0-34.0) pg MCHC 32.6 (31.0-36.0) g/dL RDW 17.1 H (11.5-14.5) % Plt Count 257 (140-440) K/mcL MPV 10.8 (8.8-12.5) fL Immature Gran % (Auto) 1.1 H (0.0-0.5) % Neut % (Auto) 51.0 (38.0-78.0) % Lymph % (Auto) 33.5 (15.5-49.0) % [place] % (Auto) 12.7 H (1.0-12.0) % Eos % (Auto) 1.1 (0.0-7.0) % Baso % (Auto) 0.6 (0.0-2.0) % Lymph # (Auto) 2.38 (1.50-4.80) K/mcL [place] # (Auto) 0.90 (0.10-0.90) K/mcL Eos # (Auto) 0.08 (0.00-0.70) K/mcL Baso # (Auto) 0.04 (0.00-0.30) K/mcL Immature Gran # 0.08 H (0.00-0.05) K/mcl Absolute Neutrophils 3.63 (1.80-8.00) K/mcL POC VBG pH (7.32-7.42) POC VBG pCO2 at Temp (41-51) POC VBG pO2 (25-40) POC VBG HCO3 (24-28) POC VBG Total CO2 (25-29) POC Venous O2 Sat (40-70) POC VBG Base Excess (-2-2) VBG Lactic Acid (0.5-2) POC Sodium 137 (133-145) POC Potassium 3.3 (3.3-5.1) POC Chloride 106 (96-108) POC Total CO2 20.0 L (22-30) POC BUN 17 (6-20) POC Creatinine 0.9 (0.6-1.2) POC Glucose 91 (70-105) POC WB Ioniz Calcium 1.18 (1.16-1.32) Total Bilirubin 0.4 (0.1-1.0) mg/dL Direct Bilirubin < 0.2 (0-0.3) mg/dL AST 36 (<40) U/L ALT < 5 (<40) U/L Alkaline Phosphatase 105 (39-117) U/L NT-Pro-B Natriuret Pep (<125.0) pg/mL Total Protein 5.3 L (5.9-8.4) gm/dL Albumin 2.6 L (3.2-5.2) gm/dL Globulin 2.7 (2.2-3.7) gm/dL Lipase 4 L (7-60) U/L Procalcitonin (<0.10) ng/mL Urine Color Urine Appearance (Clear) Urine pH (5.0-9.0) Ur Specific [place] (1.000-1.035) Urine Protein (Negative) mg/dL Urine Glucose (UA) (Negative) mg/dL Urine Ketones (Negative) mg/dL Urine Occult Blood (Negative) mg/dL Urine Nitrate (Negative) Urine Bilirubin (Negative) mg/dL Urine Urobilinogen mg/dL Ur Leukocyte Esterase (Negative) /uL Ur Culture Indicated? POC Troponin I (0.00-0.08) 01/11/22 01/11/22 01/11/22 Range/Units 16:15 16:30 18:37 WBC (4.5-11.0) K/mcL RBC (4.63-6.08) M/mcL Hgb (13.7-17.5) g/dL Hct (40.1-51.0) % POC Hct (41-55) MCV (80.0-100.0) fL MCH (26.0-34.0) pg MCHC (31.0-36.0) g/dL RDW (11.5-14.5) % Plt Count (140-440) K/mcL MPV (8.8-12.5) fL Immature Gran % (Auto) (0.0-0.5) % Neut % (Auto) (38.0-78.0) % Lymph % (Auto) (15.5-49.0) % [place] % (Auto) (1.0-12.0) % Eos % (Auto) (0.0-7.0) % Baso % (Auto) (0.0-2.0) % Lymph # (Auto) (1.50-4.80) K/mcL [place] # (Auto) (0.10-0.90) K/mcL Eos # (Auto) (0.00-0.70) K/mcL Baso # (Auto) (0.00-0.30) K/mcL Immature Gran # (0.00-0.05) K/mcl Absolute Neutrophils (1.80-8.00) K/mcL POC VBG pH (7.32-7.42) POC VBG pCO2 at Temp (41-51) POC VBG pO2 (25-40) POC VBG HCO3 (24-28) POC VBG Total CO2 (25-29) POC Venous O2 Sat (40-70) POC VBG Base Excess (-2-2) VBG Lactic Acid (0.5-2) POC Sodium (133-145) POC Potassium (3.3-5.1) POC Chloride (96-108) POC Total CO2 (22-30) POC BUN (6-20) POC Creatinine (0.6-1.2) POC Glucose (70-105) POC WB Ioniz Calcium (1.16-1.32) Total Bilirubin (0.1-1.0) mg/dL Direct Bilirubin (0-0.3) mg/dL AST (<40) U/L ALT (<40) U/L Alkaline Phosphatase (39-117) U/L NT-Pro-B Natriuret Pep 1686.0 H (<125.0) pg/mL Total Protein (5.9-8.4) gm/dL Albumin (3.2-5.2) gm/dL Globulin (2.2-3.7) gm/dL Lipase (7-60) U/L Procalcitonin (<0.10) ng/mL Urine Color [place] Urine Appearance Clear (Clear) Urine pH 5.0 (5.0-9.0) Ur Specific [place] 1.030 (1.000-1.035) Urine Protein Negative (Negative) mg/dL Urine Glucose (UA) Negative (Negative) mg/dL Urine Ketones 5 A (Negative) mg/dL Urine Occult Blood Negative (Negative) mg/dL Urine Nitrate Negative (Negative) Urine Bilirubin Negative (Negative) mg/dL Urine Urobilinogen 2.0 A mg/dL Ur Leukocyte Esterase Negative (Negative) /uL Ur Culture Indicated? No POC Troponin I 0.03 (0.00-0.08) 01/11/22 01/11/22 01/11/22 Range/Units 18:37 18:54 18:55 WBC (4.5-11.0) K/mcL RBC (4.63-6.08) M/mcL Hgb (13.7-17.5) g/dL Hct (40.1-51.0) % POC Hct (41-55) MCV (80.0-100.0) fL MCH (26.0-34.0) pg MCHC (31.0-36.0) g/dL RDW (11.5-14.5) % Plt Count (140-440) K/mcL MPV (8.8-12.5) fL Immature Gran % (Auto) (0.0-0.5) % Neut % (Auto) (38.0-78.0) % Lymph % (Auto) (15.5-49.0) % [place] % (Auto) (1.0-12.0) % Eos % (Auto) (0.0-7.0) % Baso % (Auto) (0.0-2.0) % Lymph # (Auto) (1.50-4.80) K/mcL [place] # (Auto) (0.10-0.90) K/mcL Eos # (Auto) (0.00-0.70) K/mcL Baso # (Auto) (0.00-0.30) K/mcL Immature Gran # (0.00-0.05) K/mcl Absolute Neutrophils (1.80-8.00) K/mcL POC VBG pH 7.34 (7.32-7.42) POC VBG pCO2 at Temp 40.2 L (41-51) POC VBG pO2 28 (25-40) POC VBG HCO3 21.9 L (24-28) POC VBG Total CO2 23.0 L (25-29) POC Venous O2 Sat 50.0 (40-70) POC VBG Base Excess -4.0 L (-2-2) VBG Lactic Acid 0.7 (0.5-2) POC Sodium (133-145) POC Potassium (3.3-5.1) POC Chloride (96-108) POC Total CO2 (22-30) POC BUN (6-20) POC Creatinine (0.6-1.2) POC Glucose (70-105) POC WB Ioniz Calcium (1.16-1.32) Total Bilirubin (0.1-1.0) mg/dL Direct Bilirubin (0-0.3) mg/dL AST (<40) U/L ALT (<40) U/L Alkaline Phosphatase (39-117) U/L NT-Pro-B Natriuret Pep (<125.0) pg/mL Total Protein (5.9-8.4) gm/dL Albumin (3.2-5.2) gm/dL Globulin (2.2-3.7) gm/dL Lipase (7-60) U/L Procalcitonin 0.10 H (<0.10) ng/mL Urine Color Urine Appearance (Clear) Urine pH (5.0-9.0) Ur Specific [place] (1.000-1.035) Urine Protein (Negative) mg/dL Urine Glucose (UA) (Negative) mg/dL Urine Ketones (Negative) mg/dL Urine Occult Blood (Negative) mg/dL Urine Nitrate (Negative) Urine Bilirubin (Negative) mg/dL Urine Urobilinogen mg/dL Ur Leukocyte Esterase (Negative) /uL Ur Culture Indicated? POC Troponin I < 0.02 (0.00-0.08) ED POC Tests ED POC Tests: HILDA - SARS Antigen Negative EKG Data EKG #1: EKG attestation: Yes I reviewed and interpreted this EKG. EKG results narrative: Sinus bradycardia with a rate of 53, left axis deviation, TN of 207, QRS of 113, QTc of 462, T wave flattening in leads II, aVF, V3, V4, V5, V6, and T wave inversion in lead III, and absence of ST elevation or depression. EKG #2: EKG attestation: Yes I reviewed and interpreted this EKG. EKG results narrative: Sinus bradycardia with a rate of 56, left axis deviation, TN 201, QRS of 115, QTc of 460, T wave flattening of leads II, aVF, V3, V4, V5, V6, T wave inversion of lead III, and absence of ST elevation or depression. <Franklyn Andrade MD - Last Filed: 01/11/22 21:34> [facility] Narrative Medical decision making narrative: Narrative: The patient was inherited at change of shift with a few labs pending. The thought was that he most likely would need to be placed in the hospital, at least under observation, for his soft blood pressures. I did review the remaining labs and his BNP is elevated. I did order chest x-ray which showed no sign of any fluid overload so I felt comfortable giving an additional half liter of fluid. His lactic acid is normal which is reassuring. Lab Data Labs: Lab Results 01/11/22 01/11/22 01/11/22 Range/Units 16:07 16:07 16:12 WBC 7.1 (4.5-11.0) K/mcL RBC 4.28 L (4.63-6.08) M/mcL Hgb 13.6 L (13.7-17.5) g/dL Hct 41.7 (40.1-51.0) % POC Hct 44.0 (41-55) MCV 97.4 (80.0-100.0) fL MCH 31.8 (26.0-34.0) pg MCHC 32.6 (31.0-36.0) g/dL RDW 17.1 H (11.5-14.5) % Plt Count 257 (140-440) K/mcL MPV 10.8 (8.8-12.5) fL Immature Gran % (Auto) 1.1 H (0.0-0.5) % Neut % (Auto) 51.0 (38.0-78.0) % Lymph % (Auto) 33.5 (15.5-49.0) % [place] % (Auto) 12.7 H (1.0-12.0) % Eos % (Auto) 1.1 (0.0-7.0) % Baso % (Auto) 0.6 (0.0-2.0) % Lymph # (Auto) 2.38 (1.50-4.80) K/mcL [place] # (Auto) 0.90 (0.10-0.90) K/mcL Eos # (Auto) 0.08 (0.00-0.70) K/mcL Baso # (Auto) 0.04 (0.00-0.30) K/mcL Immature Gran # 0.08 H (0.00-0.05) K/mcl Absolute Neutrophils 3.63 (1.80-8.00) K/mcL POC VBG pH (7.32-7.42) POC VBG pCO2 at Temp (41-51) POC VBG pO2 (25-40) POC VBG HCO3 (24-28) POC VBG Total CO2 (25-29) POC Venous O2 Sat (40-70) POC VBG Base Excess (-2-2) VBG Lactic Acid (0.5-2) POC Sodium 137 (133-145) POC Potassium 3.3 (3.3-5.1) POC Chloride 106 (96-108) POC Total CO2 20.0 L (22-30) POC BUN 17 (6-20) POC Creatinine 0.9 (0.6-1.2) POC Glucose 91 (70-105) POC WB Ioniz Calcium 1.18 (1.16-1.32) Total Bilirubin 0.4 (0.1-1.0) mg/dL Direct Bilirubin < 0.2 (0-0.3) mg/dL AST 36 (<40) U/L ALT < 5 (<40) U/L Alkaline Phosphatase 105 (39-117) U/L NT-Pro-B Natriuret Pep (<125.0) pg/mL Total Protein 5.3 L (5.9-8.4) gm/dL Albumin 2.6 L (3.2-5.2) gm/dL Globulin 2.7 (2.2-3.7) gm/dL Lipase 4 L (7-60) U/L Procalcitonin (<0.10) ng/mL Urine Color Urine Appearance (Clear) Urine pH (5.0-9.0) Ur Specific [place] (1.000-1.035) Urine Protein (Negative) mg/dL Urine Glucose (UA) (Negative) mg/dL Urine Ketones (Negative) mg/dL Urine Occult Blood (Negative) mg/dL Urine Nitrate (Negative) Urine Bilirubin (Negative) mg/dL Urine Urobilinogen mg/dL Ur Leukocyte Esterase (Negative) /uL Ur Culture Indicated? POC Troponin I (0.00-0.08) 01/11/22 01/11/22 01/11/22 Range/Units 16:15 16:30 18:37 WBC (4.5-11.0) K/mcL RBC (4.63-6.08) M/mcL Hgb (13.7-17.5) g/dL Hct (40.1-51.0) % POC Hct (41-55) MCV (80.0-100.0) fL MCH (26.0-34.0) pg MCHC (31.0-36.0) g/dL RDW (11.5-14.5) % Plt Count (140-440) K/mcL MPV (8.8-12.5) fL Immature Gran % (Auto) (0.0-0.5) % Neut % (Auto) (38.0-78.0) % Lymph % (Auto) (15.5-49.0) % [place] % (Auto) (1.0-12.0) % Eos % (Auto) (0.0-7.0) % Baso % (Auto) (0.0-2.0) % Lymph # (Auto) (1.50-4.80) K/mcL [place] # (Auto) (0.10-0.90) K/mcL Eos # (Auto) (0.00-0.70) K/mcL Baso # (Auto) (0.00-0.30) K/mcL Immature Gran # (0.00-0.05) K/mcl Absolute Neutrophils (1.80-8.00) K/mcL POC VBG pH (7.32-7.42) POC VBG pCO2 at Temp (41-51) POC VBG pO2 (25-40) POC VBG HCO3 (24-28) POC VBG Total CO2 (25-29) POC Venous O2 Sat (40-70) POC VBG Base Excess (-2-2) VBG Lactic Acid (0.5-2) POC Sodium (133-145) POC Potassium (3.3-5.1) POC Chloride (96-108) POC Total CO2 (22-30) POC BUN (6-20) POC Creatinine (0.6-1.2) POC Glucose (70-105) POC WB Ioniz Calcium (1.16-1.32) Total Bilirubin (0.1-1.0) mg/dL Direct Bilirubin (0-0.3) mg/dL AST (<40) U/L ALT (<40) U/L Alkaline Phosphatase (39-117) U/L NT-Pro-B Natriuret Pep 1686.0 H (<125.0) pg/mL Total Protein (5.9-8.4) gm/dL Albumin (3.2-5.2) gm/dL Globulin (2.2-3.7) gm/dL Lipase (7-60) U/L Procalcitonin (<0.10) ng/mL Urine Color [place] Urine Appearance Clear (Clear) Urine pH 5.0 (5.0-9.0) Ur Specific [place] 1.030 (1.000-1.035) Urine Protein Negative (Negative) mg/dL Urine Glucose (UA) Negative (Negative) mg/dL Urine Ketones 5 A (Negative) mg/dL Urine Occult Blood Negative (Negative) mg/dL Urine Nitrate Negative (Negative) Urine Bilirubin Negative (Negative) mg/dL Urine Urobilinogen 2.0 A mg/dL Ur Leukocyte Esterase Negative (Negative) /uL Ur Culture Indicated? No POC Troponin I 0.03 (0.00-0.08) 01/11/22 01/11/22 01/11/22 Range/Units 18:37 18:54 18:55 WBC (4.5-11.0) K/mcL RBC (4.63-6.08) M/mcL Hgb (13.7-17.5) g/dL Hct (40.1-51.0) % POC Hct (41-55) MCV (80.0-100.0) fL MCH (26.0-34.0) pg MCHC (31.0-36.0) g/dL RDW (11.5-14.5) % Plt Count (140-440) K/mcL MPV (8.8-12.5) fL Immature Gran % (Auto) (0.0-0.5) % Neut % (Auto) (38.0-78.0) % Lymph % (Auto) (15.5-49.0) % [place] % (Auto) (1.0-12.0) % Eos % (Auto) (0.0-7.0) % Baso % (Auto) (0.0-2.0) % Lymph # (Auto) (1.50-4.80) K/mcL [place] # (Auto) (0.10-0.90) K/mcL Eos # (Auto) (0.00-0.70) K/mcL Baso # (Auto) (0.00-0.30) K/mcL Immature Gran # (0.00-0.05) K/mcl Absolute Neutrophils (1.80-8.00) K/mcL POC VBG pH 7.34 (7.32-7.42) POC VBG pCO2 at Temp 40.2 L (41-51) POC VBG pO2 28 (25-40) POC VBG HCO3 21.9 L (24-28) POC VBG Total CO2 23.0 L (25-29) POC Venous O2 Sat 50.0 (40-70) POC VBG Base Excess -4.0 L (-2-2) VBG Lactic Acid 0.7 (0.5-2) POC Sodium (133-145) POC Potassium (3.3-5.1) POC Chloride (96-108) POC Total CO2 (22-30) POC BUN (6-20) POC Creatinine (0.6-1.2) POC Glucose (70-105) POC WB Ioniz Calcium (1.16-1.32) Total Bilirubin (0.1-1.0) mg/dL Direct Bilirubin (0-0.3) mg/dL AST (<40) U/L ALT (<40) U/L Alkaline Phosphatase (39-117) U/L NT-Pro-B Natriuret Pep (<125.0) pg/mL Total Protein (5.9-8.4) gm/dL Albumin (3.2-5.2) gm/dL Globulin (2.2-3.7) gm/dL Lipase (7-60) U/L Procalcitonin 0.10 H (<0.10) ng/mL Urine Color Urine Appearance (Clear) Urine pH (5.0-9.0) Ur Specific [place] (1.000-1.035) Urine Protein (Negative) mg/dL Urine Glucose (UA) (Negative) mg/dL Urine Ketones (Negative) mg/dL Urine Occult Blood (Negative) mg/dL Urine Nitrate (Negative) Urine Bilirubin (Negative) mg/dL Urine Urobilinogen mg/dL Ur Leukocyte Esterase (Negative) /uL Ur Culture Indicated? POC Troponin I < 0.02 (0.00-0.08) ED POC Tests ED POC Tests: HILDA - SARS Antigen Negative Discharge Plan Patient/Caregiver Discharge Instructions Pt seen by [facility] only: No Clinical Impression: Weakness, Colitis CHF (congestive heart failure) Qualifiers: Heart failure type: unspecified Heart failure chronicity: unspecified Qualified Code(s): I50.9 - Heart failure, unspecified Patient Disposition: Xfer As Inpt ([facility]) Follow up with: Renee Ambriz ARNP [Primary Care Provider] - Prescriptions: No Action tamsulosin 0.4 mg capsule 0.4 mg PO QHS Qty: 30 3RF naloxone 4 mg/actuation spray,non-aerosol 1 spray INTRANASAL Q2M PRN (Reason: EXCESSIVE SEDATION) Rx Instructions: spray 1 dose into ONE nostril; alternate nostrils w each dose until help arrives urea 10 % lotion 1 applic TOPICAL BID ipratropium-albuterol 0.5 mg-3 mg(2.5 mg base)/3 mL solution for nebulization 3 ml inhalation QID PRN aripiprazole 10 mg tablet 10 mg PO QDAY diclofenac sodium 1 % gel See Rx Instructions topical QID Rx Instructions: 2-4 Grams topical four times daily; apply to single elbow, wrist or hand; for hand includes palm/fingers/back of hand (DME) disposable gloves [Nitrile Exam Gloves] Misc See Rx Instructions .Route Rx Instructions: As directed methyl salicylate-menthol topical QID oxybutynin chloride 5 mg tablet 5 mg PO BID (DME) Poise Pads Pad See Rx Instructions .Route Rx Instructions: As directed carboxymethylcellulose sodium [Refresh Liquigel] 1 % drops, liquid gel 1 drp ophthalmic (eye) TID (DME) facial-body wipes Misc See Rx Instructions .Route Rx Instructions: As directed mometasone 200 mcg/actuation HFA aerosol inhaler 2 puff inhalation BID (DME) underpads [Air Permeable Underpad] 23 X 36 " pad See Rx Instructions .Route Rx Instructions: As directed carbidopa-levodopa 25-100 mg tablet 3 tab PO QID furosemide 20 mg tablet 10 mg PO QDAY PRN Nourianz 40 mg tablet 40 mg PO QDAY Ongentys 50 mg capsule 50 mg PO QHS Rx Instructions: must be taken on empty stomach, at least 1 hr before or after a meal/food famotidine 20 mg tablet 20 mg PO BID gabapentin 100 mg capsule 100 mg PO BID sucralfate 1 gram tablet 1 g PO QID (DME) Bipap with back up rate See Rx Instructions .Route .MEDSUPPLY Qty: 1 0RF Rx Instructions: settings: 24/01 with back up rate of 9. (DME) Pulse oximeter device See Rx Instructions .Route .MEDSUPPLY Qty: 1 0RF Rx Instructions: As directed Amitiza 24 mcg capsule 24 mcg PO BIDCC dexlansoprazole [Dexilant] 60 mg capsule,biphase delayed releas 60 mg PO BID Stiolto Respimat 2.5-2.5 mcg/actuation mist 2 puff inhalation Q24H Gemtesa 75 mg tablet 75 mg PO QDAY Eliquis 5 mg tablet 5 mg PO BID colchicine 0.6 mg tablet 0.6 mg PO BID amiodarone 200 mg tablet 200 mg PO QDAY topiramate 100 mg capsule,sprinkle,ER 24hr 100 mg PO HS oxycodone [OxyContin] 10 mg tablet,oral only,ext.rel.12 hr 10 mg PO TID lamotrigine 150 mg tablet 150 mg PO BID ondansetron 4 mg tablet,disintegrating 4 mg translingual Q4H PRN topiramate 200 mg capsule,sprinkle,ER 24hr 200 mg PO BID levothyroxine 75 MCG tablet 75 mcg PO ACB docusate sodium 100 MG capsule 200 mg PO BID ferrous gluconate 324 MG tablet 324 mg PO DAILY@1600 magnesium oxide 420 mg Tablet 420 mg PO DAILY olanzapine 5 mg Tablet 5 mg PO QHS cyanocobalamin (vitamin B-12) 500 mcg Tablet 500 mcg PO QDAY cholecalciferol (vitamin D3) 50 mcg (2,000 unit) Capsule 50 mcg PO QDAY melatonin 10 mg Tablet,Ext Release Multiphase 10 mg PO HS methocarbamol 750 mg Tablet 750 mg PO TID lidocaine [Lidoderm] 5 % adhesive patch,medicated 1 patch topical DAILYP PRN (Reason: Pain) Rx Instructions: Place on affected area for 12 hours, then remove for 12 hours. divalproex 500 mg Tablet,Delayed Release (Dr/Ec) 500 mg PO TID calcium carbonate 500 mg calcium (1,250 mg) Tablet,Chewable 1,000 mg PO HS albuterol sulfate 90 mcg/actuation HFA aerosol inhaler 2 puff INHALATION Q6HP PRN (Reason: shortness of breath or wheezing) polyethylene glycol 3350 [Miralax] 17 gram Powder In Packet 17 g PO QDAY
[2022-01-11] MEDS ORDERED: LACTATED RINGERS 1,000 ML IV ONE (15:59)
[2022-01-11 16:27] LABS: POC Calcium, Ionized 1.18 (1.16-1.32); POC Creatinine 0.9 (0.6-1.2); POC Potassium 3.3 (3.3-5.1)
[2022-01-11 16:44] LABS: Basophils # (Auto) 0.04 K/mcL (0.00-0.30); Basophils % (Auto) 0.6 % (0.0-2.0); Eosinophils # (Auto) 0.08 K/mcL (0.00-0.70); Eosinophils % (Auto) 1.1 % (0.0-7.0); Hematocrit 41.7 % (40.1-51.0); Hemoglobin 13.6 g/dL (13.7-17.5); Lymphocytes # (Auto) 2.38 K/mcL (1.50-4.80); Lymphocytes % (Auto) 33.5 % (15.5-49.0); Mean Cell Volume 97.4 fL (80.0-100.0); Mean Corpuscular HGB Conc 32.6 g/dL (31.0-36.0); Mean Platelet Volume 10.8 fL (8.8-12.5); Monocytes % (Auto) 12.7 % (1.0-12.0); Platelet Count 257 K/mcL (140-440); RBC 4.28 M/mcL (4.63-6.08); Red Cell Distribution Width 17.1 % (11.5-14.5); WBC 7.1 K/mcL (4.5-11.0)
[2022-01-11 17:09] LABS: ALT/SGPT < 5 U/L (<40); AST/SGOT 36 U/L (<40); Albumin 2.6 gm/dL (3.2-5.2); Alkaline Phosphatase 105 U/L (39-117); Bilirubin,Direct < 0.2 mg/dL (0-0.3); Bilirubin,Total 0.4 mg/dL (0.1-1.0); Globulin 2.7 gm/dL (2.2-3.7)
--- NOTE | 2022-01-11 17:38 | Cat Scan Report ---
CLINICAL INFORMATION: Worsening headache COMPARISON: None. TECHNIQUE: 2.5 mm helical slices were obtained in the skull base to vertex. Following reconstruction, axial reformatted images were reviewed at bone and parenchymal windows. The exam was performed using radiation dose optimization techniques including, but not limited to, automated exposure control, adjustment of the mA and/or kV according to patient size and use of iterative reconstruction technique. FINDINGS: The ventricles, sulci, fissures, and cisterns are symmetrically enlarged compatible with mild age-related atrophy. No extra-axial fluid collections are identified. Mild patchy chronic ischemic changes, in the deep cerebral white matter, are expected for age. There is no hemorrhage, mass effect, or edema. Bone windows show no osseous abnormality. IMPRESSION: Mild atrophy and chronic ischemic changes in the deep cerebral white matter-expected for age. No acute findings Interpreted and Authenticated by: Mio Connell 01/11/22
[2022-01-11 18:05] LABS: Appearance,Urine CLEAR (Clear); Bilirubin,Urine Negative (Negative); Color,Urine AMBER; Culture Indicated,Urine No; Glucose,Urine (UA) Negative (Negative); Ketones,Urine 5 mg/dL (Negative); Leukocyte Esterase,Urine Negative /uL (Negative); Nitrate,Urine Negative (Negative); Protein,Urine Negative (Negative); Urine Blood Negative (Negative)
--- NOTE | 2022-01-11 18:14 | Cat Scan Report ---
CLINICAL INFORMATION: Abdominal pain COMPARISON: CT IVP 11/30/2021 TECHNIQUE: Following enteric contrast, 80 cc of [id number] were injected intravenously, and 60 seconds later, 0.625 mm helical slices were obtained from the mid heart through the subtrochanteric regions. Following reconstruction, 2.5 mm sagittal, coronal and axial reformatted images were processed and reviewed at bone, lung and soft tissue windows. Five minutes later, 0.625 mm helical slices were obtained from the mid heart through the kidneys and viewed at soft tissue windows.The exam was performed using radiation dose optimization techniques including, but not limited to, automated exposure control, adjustment of the mA and/or kV according to patient size and use of iterative reconstruction technique. FINDINGS: Right diaphragm is moderately elevated, but unchanged. This results in subsegmental compressive atelectasis in the overlying right middle and lower lobes. Scattered fibrosis or atelectasis seen in the left lower lobe as well. The heart is normal in size and scattered calcific plaque in the coronary arteries. Abdominal images show mild fatty change within the liver. The gallbladder is surgically absent. Common bile duct is moderately dilated (14 mm) with smooth tapering near the ampullary region. Findings suggestive post cholecystectomy papillary stenosis-no change from previous exam. There is moderate atrophy of the pancreas with fat replacement. Both adrenal glands and spleen are normal. The aorta is normal diameter with scattered atherosclerotic plaque. 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 The SMA and RUDY and renal arteries are patent. There are two stones inferior calyx of the left kidney both less than 2 mm. No other renal abnormality. There is no free air, free fluid or adenopathy. Pelvic images show prostate, seminal vesicles and urinary bladder are normal. There is mild wall thickening and mucosal enhancement throughout the colon. This suggestive of infectious, inflammatory or ischemic colitis. Suggest referral for colonoscopy. [place]-en-Y gastric bypass changes are unremarkable. Small bowel is unremarkable. Bone windows show chronic bilateral L5-S1 spondylolysis with grade 1 spondylolisthesis and broad disc protrusion. This results in severe IV foraminal narrowing and exiting L5 nerve root impingement. No other osseous lesions. IMPRESSION: Mild wall thickening and mucosal enhancement throughout the colon suggesting the possibility of infectious, inflammatory or ischemic colitis. Suggest GI referral for colonoscopy. Moderate common bile duct dilatation suggesting post cholecystectomy papillary stenosis. Please correlate with LFTs Moderate pancreatic atrophy. Two nonobstructing stones inferior calyx left kidney both less than 3 mm. Moderate elevation right diaphragm stable Chronic L5-S1 spondylolysis and grade 1 spondylolisthesis resulting in severe IV foraminal narrowing and exiting L5 nerve root impingement. Interpreted and Authenticated by: Mio Connell 01/11/22
[2022-01-11] MEDS ORDERED: 0.9 % SODIUM CHLORIDE 500 ML IV ONE ×2 (18:22→20:21)
--- NOTE | 2022-01-11 22:06 | Internal Med History&Physical ---
HPI History of Present Illness Patient information: Note initiated : 01/11/22 at 9:53 pm Service Date, if different from initiated Date: [] Patient: Rohan Arcos a 66 y/o M admitted on for UTI. Chief Complaint: [] History of present illness: Mr. Arcos is a 66 year old M Presents the ED with his for generalized weakness lethargy poor appetite poor oral intake dark urine and being a little foggy. is assisting with the history. She says for about 5 days this is been going on and progressing. Mat he was in his normal state of health. He has been around 80 but has been sick and no traveling. In the ED he was evaluated found to have blood pressures down about a systolic of 80 which improved to the 90s with IV fluid. reports no medication changes other than stopping Eliquis because they are worried about his fall risk after she talked to the cardiology PA the understanding of the increased risk for stroke. Labs were essentially unremarkable. She did have some ketones in the urine but did not look infected. CT brain with some chronic ischemic changes but no acute. CT abdomen pelvis showed mild wall thickening and mucosal enhancement throughout the colon suggesting infection versus an inflammatory or ischemic colitis. No other acute findings in the abdomen. Patient does report that he is also had diarrhea for about that period of time which is unusual for him. His states she still has about 1 episode a day and then she will give Imodium so he is only had about 1 episode each day. Is also had some nausea vomiting few times throughout this past few days. His has had to crush his pills to make it easier for him to swallow. Denies any pain with swallowing. He had an EGD and a colonoscopy 6 to [address] Rushing says were unremarkable. Review of Systems: Pertinent positives as above and patient does complain of occasional headaches . denies headache/fever/chills/nausea/vomiting/dyspnea. Pertinent positives as above. PFSH PFSH All Active Problems (Updated 01/11/22 @ 21:34 by Franklyn Andrade MD) Abrasion (Chronic) Acute blistering eruption of skin (Chronic) Latex sensitivity (Chronic) Weakness (Chronic) Opioid dependence, uncomplicated (Chronic) Low back pain (Chronic) Pain in left ankle and joints of left foot (Chronic) Pain, joint, knee, left (Chronic) Chronic pain (Chronic) Bipolar disorder (Chronic) Parkinsons disease (Chronic) Type 2 diabetes mellitus without complications (Chronic) PTSD (post-traumatic stress disorder) (Chronic) Hypothyroidism (Chronic) History of tobacco use (Chronic) Anxiety disorder (Chronic) GERD (gastroesophageal reflux disease) (Chronic) Depression (Chronic) Spinal stenosis, lumbar region with neurogenic claudication (Chronic) Bronchitis (Chronic) Recurrent aspiration events (Chronic) Cough (Chronic) Total knee replacement status (Chronic) Knee joint replacement status (Chronic) Chest pain (Chronic) Pneumonia (Chronic) Lumbar radiculopathy (Chronic) Complex sleep apnea syndrome (Chronic) Status post total knee replacement, right (Chronic) Other specified disorder of male genital organs (Chronic) Abnormal level of hormones in specimens from male genital organs (Chronic) Borderline personality disorder (Chronic) Chronic obstructive pulmonary disease, unspecified (Chronic) Chronic sinusitis (Chronic) Constipation, unspecified (Chronic) 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) Dehydration (Chronic) Disorders of magnesium metabolism, unspecified (Chronic) Headache (Chronic) Hypogonadism (Chronic) Impaired glucose tolerance (Chronic) Impotence (Chronic) Insomnia, unspecified (Chronic) Iron deficiency (Chronic) Magnesium deficiency (Chronic) Major depressive disorder, recurrent, moderate (Chronic) Other fracture of fourth lumbar vertebra, sequela (Chronic) Other intervertebral disc degeneration, lumbar region (Chronic) Other specified abnormal findings of blood chemistry (Chronic) Other specified postprocedural states (Chronic) Pain in right knee (Chronic) Peripheral vascular disease (Chronic) Prediabetes (Chronic) Problems in relationship with spouse or partner (Chronic) Unspecified bacterial pneumonia (Chronic) Unspecified disorder of binocular vision (Chronic) Unspecified hearing loss, bilateral (Chronic) Unspecified osteoarthritis, unspecified site (Chronic) Urinary incontinence (Chronic) Vitamin B deficiency, unspecified (Chronic) Aspiration pneumonia (Chronic) Seizure disorder (Chronic) BPH NOS w/o ur obs/LUTS (Chronic) Overactive bladder (Chronic) Post-void dribbling (Chronic) Epididymal cyst (Chronic) Testicular cyst (Chronic) Urinary frequency (Chronic) Hypoxemia (Chronic) Paralyzed hemidiaphragm (Chronic) Nocturnal hypoxemia (Chronic) URI (upper respiratory infection) (Chronic) Other low back pain (Chronic) Muscle weakness (generalized) (Chronic) Chest pain (Acute) Gross hematuria (Acute) H/O renal calculi (Chronic) Aspiration into airway (Chronic) CHF (congestive heart failure) (Acute) Colitis (Acute) Medical History Abnormal level of hormones in specimens from male genital organs Abrasion Acute blistering eruption of skin Anxiety disorder Aspiration into airway Aspiration pneumonia Bipolar disorder Borderline personality disorder Bronchitis Chest pain Chronic obstructive pulmonary disease, unspecified Chronic pain Chronic sinusitis Complex sleep apnea syndrome Constipation, unspecified Conversion disorder with seizures or convulsions Cough Dehydration Depression Disorders of magnesium metabolism, unspecified GERD (gastroesophageal reflux disease) Headache History of tobacco use History of vasovasostomy Hypogonadism Hypothyroidism Hypoxemia Impaired glucose tolerance Impotence Insomnia, unspecified Iron deficiency Latex sensitivity Low back pain Magnesium deficiency Major depressive disorder, recurrent, moderate Muscle weakness (generalized) Opioid dependence, uncomplicated Other fracture of fourth lumbar vertebra, sequela Other intervertebral disc degeneration, lumbar region Other low back pain Other specified abnormal findings of blood chemistry Other specified disorder of male genital organs Pain in left ankle and joints of left foot Pain in right knee Pain, joint, knee, left Parkinsons disease Peripheral vascular disease Pneumonia Prediabetes Problems in relationship with spouse or partner PTSD (post-traumatic stress disorder) Recurrent aspiration events Seizure disorder Spinal stenosis, lumbar region with neurogenic claudication Type 2 diabetes mellitus without complications Unspecified bacterial pneumonia Unspecified disorder of binocular vision Unspecified hearing loss, bilateral Unspecified osteoarthritis, unspecified site Urinary incontinence Vitamin B deficiency, unspecified Weakness Surgical History History of adenectomy History of appendectomy 1974 History of bone graft upper jaw History of cholecystectomy History of colonoscopy History of gastric bypass History of surgery on wrist History of tonsillectomy 1958 History of tooth extraction History of vasectomy 1985 Hx of sinus surgery multiple Knee joint replacement status POD 3 s/p revision left total knee arthroplasty with liner exchange. -- PT/OT- wbat with hinged knee in place -- changed dressing and painted incision with betadine. The serous blister along the lateral aspect of the knee decompressed with removal of silver dressing. Left roof intact. Monitor and applied a dry compression dressing for today. -- Will need new hinged knee brace as the proximal portion was covered in blood. nurse aware. -- h/h, vitals- stable -- glucose has been well controlled- continue current meds -- oral pain medications- continue -- carbohydrate diet -- prophy: IS, ambulation, asa 81 bid, scd's -- dispo: plan is for rehab tomorrow. No pertinent past surgical history Other specified postprocedural states Total knee replacement status stable ; reduced fall risk. discharge Family History Father , age 49 Stroke Heart attack HTN (hypertension) Diabetes Mother HTN (hypertension) Brother HTN (hypertension) Social History marital status: occupational status: disabled smoking status: Former smoker smoking status start date: 03/11/79 smoking status stop date: 03/11/08 alcohol intake frequency: former alcohol drinker substance use type: does not use MEDS/ALLERGIES Home Medications and Allergies Home Medications Medication Instructions Recorded Confirmed Type levothyroxine 75 mcg tablet 75 mcg PO DAILY 08/14/17 01/12/22 History docusate sodium 100 mg capsule 200 mg PO BID 05/09/18 01/12/22 History melatonin 10 mg tablet,extended 10 mg PO HS 01/22/20 01/12/22 History release,multiphase olanzapine 5 mg tablet 5 mg PO QHS 01/22/20 01/12/22 History methocarbamol 750 mg tablet 750 mg PO QID 01/28/20 01/12/22 History lidocaine 5 % topical patch 1 patch topical DAILYP PRN Pain 03/03/20 01/12/22 History (Lidoderm) naloxone 4 mg/actuation nasal spray 1 spray intranasal Q2M PRN 03/03/20 01/12/22 History EXCESSIVE SEDATION urea 10 % lotion 1 applic topical BID 03/03/20 01/12/22 History lubiprostone 24 mcg capsule 24 mcg PO BIDCC 03/31/20 01/12/22 History (Amitiza) Bipap with back up rate #1 ea 05/11/20 01/12/22 Rx divalproex 500 mg tablet,delayed 500 mg PO TID 05/20/20 01/12/22 History release aripiprazole 10 mg tablet 10 mg PO HS 09/27/20 01/12/22 History istradefylline 40 mg tablet 40 mg PO QDAY 11/16/20 01/12/22 History (Nourianz) dexlansoprazole 60 mg 60 mg PO BID 05/05/21 01/12/22 History capsule,biphase delayed release (Dexilant) Pulse oximeter device #1 ea 05/25/21 01/12/22 Rx diclofenac sodium 1 % topical gel See Rx Instructions topical QID 06/05/21 01/12/22 History disposable gloves (Nitrile Exam 06/05/21 01/12/22 History Gloves) facial-body wipes 06/05/21 01/12/22 History incontinence pad, liner, disp 06/05/21 01/12/22 History (Poise Pads) methyl salicylate-menthol 30 % topical QID 06/05/21 01/12/22 History mometasone 200 mcg/actuation HFA 2 puff inhalation BID 06/05/21 01/12/22 History aerosol inhaler underpads 23" X 36" (Air Permeable 06/05/21 01/12/22 History Underpad) vibegron 75 mg tablet (Gemtesa) 75 mg PO QDAY 08/25/21 01/12/22 History carbidopa 25 mg-levodopa 100 mg 3 tab PO QID 09/14/21 01/12/22 History tablet opicapone 50 mg capsule (Ongentys) 50 mg PO QHS 09/14/21 01/12/22 History amiodarone 200 mg tablet 200 mg PO DAILY 11/23/21 01/12/22 History colchicine 0.6 mg tablet 0.6 mg PO QDAY 11/23/21 01/12/22 History lamotrigine 150 mg tablet 150 mg PO BID 11/23/21 01/12/22 History ondansetron 4 mg disintegrating 4 mg translingual Q4H PRN Nausea 11/23/21 01/12/22 History tablet oxycodone 10 mg tablet,crush 10 mg PO TID 11/23/21 01/12/22 History resistant,extended release 12 hr (OxyContin) topiramate 100 mg capsule 100 mg PO DAILY 11/23/21 01/12/22 History sprinkle,extended release 24 hr topiramate 200 mg capsule 400 mg PO BID 11/23/21 01/12/22 History sprinkle,extended release 24 hr furosemide 20 mg tablet 10 mg PO QDAY 12/22/21 01/12/22 History acetaminophen 650 mg QID 01/12/22 01/12/22 History bisacodyl 5 mg tablet,delayed 10 mg PO ONCE 01/12/22 01/12/22 History release (Dulcolax (bisacodyl)) cholecalciferol (vitamin D3) 50 50 mcg PO QDAY 01/12/22 01/12/22 History mcg (2,000 unit) tablet cyanocobalamin (vitamin B-12) 500 500 mcg PO QDAY 01/12/22 01/12/22 History mcg tablet ferrous gluconate 324 mg (37.5 mg 324 mg PO QDAY 01/12/22 01/12/22 History iron) tablet fluticasone propionate 50 2 spray intranasal QDAY 01/12/22 01/12/22 History mcg/actuation nasal spray,suspension magnesium oxide 324 mg PO DAILY 01/12/22 01/12/22 History olodaterol 2.5 mcg/actuation mist 2 inh inhalation DAILY 01/12/22 01/12/22 History for inhalation sucralfate 1 gram tablet 1 g PO QID 01/12/22 01/12/22 History tamsulosin 0.4 mg capsule 0.8 mg PO QHS 01/12/22 01/12/22 History Allergies Allergy/AdvReac Type Severity Reaction Status Date / Time gabapentin Allergy Unknown Unknown Verified 01/12/22 01:16 adhesive AdvReac Intermediate Blister Verified 01/12/22 01:16 amantadine AdvReac Mild Rash Verified 01/12/22 01:16 [place] AdvReac Mild unstable Verified 01/12/22 01:16 vitals sertraline [From Zoloft] AdvReac Mild HEADACHE Verified 01/12/22 01:16 Nonsteroidal Allergy Unknown Unknown Uncoded 12/01/21 17:27 anti-inflammatory RUBBER AdvReac Mild Rash Uncoded 12/01/21 17:27 EXAM Constitutional Vitals: Temp Pulse Resp BP Pulse Ox O2 Del Method 97 F 54 L 15 95/63 96 01/11/22 15:16 01/11/22 19:19 01/11/22 21:01 01/11/22 21:01 01/11/22 19:19 01/11/22 19:19 Exam: General: Alert, Awake, No acute Distress Eyes/N/T: EOMI, PERRL, dry MM Head/Neck: neck supple, normocephalic atraumatic CV: RRR, No murmurs, normal s1/s2 Pulm: Clear b/l, no wheezing/rhonchi/rales Abd: soft, nontender, +BS x4 Ext: no clubbing/cyanosis, b/l LE edema Neuro: Alert, no focal deficits, moves all extremities, CN 2-12 grossly intact, symmetrical strength b/l upper/lower, sensations intact b/l upper/lower Skin: warm/dry DATA Data Completed and Pending Labs: Labs from last 24 hours 01/11/22 01/11/22 01/11/22 18:55 18:54 18:37 WBC RBC Hgb Hct POC Hct MCV MCH MCHC RDW Plt Count MPV Immature Gran % (Auto) Neut % (Auto) Lymph % (Auto) [place] % (Auto) Eos % (Auto) Baso % (Auto) Lymph # (Auto) [place] # (Auto) Eos # (Auto) Baso # (Auto) Immature Gran # Absolute Neutrophils POC VBG pH 7.34 POC VBG pCO2 at Temp 40.2 L POC VBG pO2 28 POC VBG HCO3 21.9 L POC VBG Total CO2 23.0 L POC Venous O2 Sat 50.0 POC VBG Base Excess -4.0 L VBG Lactic Acid 0.7 POC Sodium POC Potassium POC Chloride POC Total CO2 POC BUN POC Creatinine POC Glucose POC WB Ioniz Calcium Total Bilirubin Direct Bilirubin AST ALT Alkaline Phosphatase NT-Pro-B Natriuret Pep Total Protein Albumin Globulin Lipase Procalcitonin 0.10 H Urine Color Urine Appearance Urine pH Ur Specific [place] Urine Protein Urine Glucose (UA) Urine Ketones Urine Occult Blood Urine Nitrate Urine Bilirubin Urine Urobilinogen Ur Leukocyte Esterase Ur Culture Indicated? POC Troponin I < 0.02 01/11/22 01/11/22 01/11/22 18:37 16:30 16:15 WBC RBC Hgb Hct POC Hct MCV MCH MCHC RDW Plt Count MPV Immature Gran % (Auto) Neut % (Auto) Lymph % (Auto) [place] % (Auto) Eos % (Auto) Baso % (Auto) Lymph # (Auto) [place] # (Auto) Eos # (Auto) Baso # (Auto) Immature Gran # Absolute Neutrophils POC VBG pH POC VBG pCO2 at Temp POC VBG pO2 POC VBG HCO3 POC VBG Total CO2 POC Venous O2 Sat POC VBG Base Excess VBG Lactic Acid POC Sodium POC Potassium POC Chloride POC Total CO2 POC BUN POC Creatinine POC Glucose POC WB Ioniz Calcium Total Bilirubin Direct Bilirubin AST ALT Alkaline Phosphatase NT-Pro-B Natriuret Pep 1686.0 H Total Protein Albumin Globulin Lipase Procalcitonin Urine Color [place] Urine Appearance Clear Urine pH 5.0 Ur Specific [place] 1.030 Urine Protein Negative Urine Glucose (UA) Negative Urine Ketones 5 A Urine Occult Blood Negative Urine Nitrate Negative Urine Bilirubin Negative Urine Urobilinogen 2.0 A Ur Leukocyte Esterase Negative Ur Culture Indicated? No POC Troponin I 0.03 01/11/22 01/11/22 01/11/22 16:12 16:07 16:07 WBC 7.1 RBC 4.28 L Hgb 13.6 L Hct 41.7 POC Hct 44.0 MCV 97.4 MCH 31.8 MCHC 32.6 RDW 17.1 H Plt Count 257 MPV 10.8 Immature Gran % (Auto) 1.1 H Neut % (Auto) 51.0 Lymph % (Auto) 33.5 [place] % (Auto) 12.7 H Eos % (Auto) 1.1 Baso % (Auto) 0.6 Lymph # (Auto) 2.38 [place] # (Auto) 0.90 Eos # (Auto) 0.08 Baso # (Auto) 0.04 Immature Gran # 0.08 H Absolute Neutrophils 3.63 POC VBG pH POC VBG pCO2 at Temp POC VBG pO2 POC VBG HCO3 POC VBG Total CO2 POC Venous O2 Sat POC VBG Base Excess VBG Lactic Acid POC Sodium 137 POC Potassium 3.3 POC Chloride 106 POC Total CO2 20.0 L POC BUN 17 POC Creatinine 0.9 POC Glucose 91 POC WB Ioniz Calcium 1.18 Total Bilirubin 0.4 Direct Bilirubin < 0.2 AST 36 ALT < 5 Alkaline Phosphatase 105 NT-Pro-B Natriuret Pep Total Protein 5.3 L Albumin 2.6 L Globulin 2.7 Lipase 4 L Procalcitonin Urine Color Urine Appearance Urine pH Ur Specific [place] Urine Protein Urine Glucose (UA) Urine Ketones Urine Occult Blood Urine Nitrate Urine Bilirubin Urine Urobilinogen Ur Leukocyte Esterase Ur Culture Indicated? POC Troponin I A/P Narrative A/P Narrative: A: *Colitis w/diarrhea: inflammatory vs ischemic vs infectious (doubt bacterial) -low pct, no leukocytosis or fever, lactate wnl *Generalized weakness/deconditioning *Hypotension: *Volume depletion: *Central Sleep Apnea: On BiPAP with 4L O2 while sleeping *COPD: *A. fib, chronic: Stopped taking Eliquis because of fall risk after discussion with physician *Parkinson's: *Seizure d/o: *Depression/anxiety: *Hypothyroidism: tsh *GERD: P: -IVF -stool studies -hold any abx for now -monitor bp closely - -hold home lasix for now -Continue home amiodarone - -PT/OT -CM for placement needs versus HHC -ppx: Lovenox / home ppi Time Spent With Patient Time: Total time spent is greater than 50% in coordination of care (as documented) at patient's floor/unit and/or counseling patient: Total time spent with greater than 50% in coordination of care (as documented) at patient's floor/unit and/or counseling patient:: Greater than 70 minutes
[2022-01-11 22:49] LABS: Thyroid Stimulating Hormone 2.68 uIU/mL (0.27-5.01); Uric Acid 2.7 mg/dL (2.5-8.0)
[2022-01-11] MEDS ORDERED: POTASSIUM CHLORIDE 20 MEQ TABLET PO PRN ×2 (23:39)
[2022-01-11] MEDS ORDERED: IPRATROPIUM/ALBUTEROL 3 ML AMPUL.NEB NEB PRN (23:39)
[2022-01-11] MEDS ORDERED: MAGNESIUM SULFATE 2 GM/50 ML BAG IV PRN (23:39)
[2022-01-11] MEDS ORDERED: POTASSIUM CHLORIDE 40 MEQ in DEXTROSE 5% IN WATER 500 ML IV PRN (23:39)
[2022-01-11] MEDS ORDERED: ACETAMINOPHEN 325 MG TABLET PO PRN (23:39)
[2022-01-11] MEDS: 0.9 % SODIUM CHLORIDE 1,000 ML IV SCH (23:41)
[2022-01-12] MEDS ORDERED: POTASSIUM CHLORIDE 20 MEQ TABLET PO ONE (01:41)
--- NOTE | 2022-01-12 02:39 | XRay Report ---
CLINICAL INFORMATION: Dyspnea and fever COMPARISON: 09/30/2021 TECHNIQUE: Portable FINDINGS: Suboptimal inspiratory result again noted. The heart size, mediastinum and pulmonary vessels are unremarkable. Mild atelectasis in both bases appreciated. No definite infiltrates. There are no effusions. The bones and soft tissues are within normal limits. IMPRESSION: Small inspiratory result. Minor bibasilar atelectasis. Possible small left pneumothorax versus artifact. Suggest patient return for coned views over the lung apices in upright position Interpreted and Authenticated by: Mio Connell 01/12/22
[2022-01-12] MEDS: 0.9 % SODIUM CHLORIDE 10 ML SYRINGE IV SCH ×3 (05:49→20:56)
[2022-01-12] MEDS: PANTOPRAZOLE 40 MG TABLET PO SCH (07:07)
[2022-01-12 07:20] LABS: Hematocrit 41.3 % (40.1-51.0); Hemoglobin 13.2 g/dL (13.7-17.5); Mean Cell Volume 98.8 fL (80.0-100.0); Mean Platelet Volume 10.7 fL (8.8-12.5); Platelet Count 253 K/mcL (140-440); RBC 4.18 M/mcL (4.63-6.08); Red Cell Distribution Width 17.4 % (11.5-14.5); WBC 6.6 K/mcL (4.5-11.0)
[2022-01-12 07:51] LABS: Anisocytosis 1+ (None Seen); Band Neutrophils % 3 % (0-10); Basophils % (Manual) 1 % (0-2); Eosinophils % (Manual) 1 % (0-7); Lymphocytes % 15 % (15-49); Monocytes % (Manual) 10 % (1-12); Platelet Estimate NORMAL (Normal); RBC Morphology ABNORMAL (Normal); Reactive Lymphocytes 1 % (0-2); Segmented Neutrophils % 69 % (38-78)
[2022-01-12] MEDS ORDERED: LIDOCAINE PATCH TOPICAL PRN (07:52)
--- NOTE | 2022-01-12 07:52 | Internal Med Progress Note ---
SUBJECTIVE Subjective Patient information: Note initiated : 01/12/22 at 7:49 am Service Date, if different from initiated Date: [] Patient: Rohan Arcos a 66 y/o M admitted on 01/11/22 for UTI. Chief Complaint: [] Interval history: History of present illness: Mr. Arcos is a 66 year old M Presents the ED with his for generalized weakness lethargy poor appetite poor oral intake dark urine and being a little foggy. is assisting with the history. She says for about 5 days this is been going on and progressing. [place] he was in his normal state of health. He has been around 80 but has been sick and no traveling. In the ED he was evaluated found to have blood pressures down about a systolic of 80 which improved to the 90s with IV fluid. reports no medication changes other than stopping Eliquis because they are worried about his fall risk after she talked to the cardiology PA the understanding of the increased risk for stroke. Labs were essentially unremarkable. She did have some ketones in the urine but did not look infected. CT brain with some chronic ischemic changes but no acute. CT abdomen pelvis showed mild wall thickening and mucosal enhancement throughout the colon suggesting infection versus an inflammatory or ischemic colitis. No other acute findings in the abdomen. Patient does report that he is also had diarrhea for about that period of time which is unusual for him. His states she still has about 1 episode a day and then she will give Imodium so he is only had about 1 episode each day. Is also had some nausea vomiting few times throughout this past few days. His has had to crush his pills to make it easier for him to swallow. Denies any pain with swallowing. He had an EGD and a colonoscopy 6 to [address] Rushing says were unremarkable. 01/12 No overnight event or new complaints other than poor sleep. Patient had a good breakfast this morning. Patient states still having diarrhea. C. difficile study negative. Fecal leukocyte rare. Stool cultures for enteric pathogens negative. Sometime after her rounded on him the nurse reported he had a large bloody bowel movement, confirmed guaiac positive. Stat H&H ordered. Will discuss with general surgery for possible colonoscopy. Review of Systems: denies headache/fever/chills/nausea/vomiting/chest or abdominal pain/cough/dyspnea. Otherwise see above. Constitutional Vitals: Vital Signs Temp Pulse Resp BP Pulse Ox O2 Del Method 97.4 F 65 14 123/73 95 01/12/22 04:22 01/12/22 07:00 01/12/22 07:00 01/12/22 07:00 01/12/22 07:00 01/11/22 23:21 Period Temp Pulse Resp BP Sys/Kwon Pulse Ox O2 Del Method O2 Flow Rate Last 24 Hr 97 F-97.4 F 53-70 01-30 79-128/50-73 94-100 Room Air-Room Air Intake and Output 01/11/22 01/12/22 01/12/22 21:59 05:59 13:59 Intake Total 1500 618 Output Total 1050 Balance 1500 -432 Weight 98.883 kg 97.749 kg Intake & Output: Intake & Output 01/11/22 01/12/22 01/12/22 21:59 05:59 13:59 Intake Total 1500 618 Output Total 1050 Balance 1500 -432 Weight 98.883 kg 97.749 kg Intake: IV 1500 500 Sodium Chloride 0.9% 500 ml @ 500 500 Wide Open IV [facility] Rx#: [id number] Lactated Ringers 1,000 ml @ 1000 Wide Open IV [facility] Rx#: [id number] Oral 118 Output: Void Amount 300 Urine/Stool Mix 750 Other: Meal 2 cans soup, crackers, cup of egg salad, 1 orange juirce Percent of Meal Consumed 100% Urine Appearance Clear Urine Color Dark [place] Stool Size Large Stool Color [place] Bright Red Blood Stool Consistency Soft Exam: General: Alert, Awake, No acute Distress Eyes/N/T: EOMI, Head/Neck: neck supple, CV: RRR, No murmurs, Pulm: Clear b/l, no wheezing/rhonchi/rales Abd: soft, nontender, +BS x4 Ext: no clubbing/cyanosis, b/l LE edema Neuro: Alert, no focal deficits, moves all extremities, Skin: warm/dry OBJ DATA Labs CBC & Chem 7: 01/12/22 05:51 01/12/22 05:51 Labs: Abnormal Lab Results 01/12/22 01/11/22 01/11/22 05:51 22:03 18:54 RBC 4.18 L Hgb 13.2 L RDW 17.4 H Immature Gran % (Auto) [place] % (Auto) Immature Gran # POC VBG pCO2 at Temp 40.2 L POC VBG HCO3 21.9 L POC VBG Total CO2 23.0 L POC VBG Base Excess -4.0 L POC Total CO2 C-Reactive Protein 1.50 H NT-Pro-B Natriuret Pep Total Protein Albumin Lipase Procalcitonin Urine Ketones Urine Urobilinogen 01/11/22 01/11/22 01/11/22 18:37 18:37 16:30 RBC Hgb RDW Immature Gran % (Auto) [place] % (Auto) Immature Gran # POC VBG pCO2 at Temp POC VBG HCO3 POC VBG Total CO2 POC VBG Base Excess POC Total CO2 C-Reactive Protein NT-Pro-B Natriuret Pep 1686.0 H Total Protein Albumin Lipase Procalcitonin 0.10 H Urine Ketones 5 A Urine Urobilinogen 2.0 A 01/11/22 01/11/22 01/11/22 16:12 16:07 16:07 RBC 4.28 L Hgb 13.6 L RDW 17.1 H Immature Gran % (Auto) 1.1 H [place] % (Auto) 12.7 H Immature Gran # 0.08 H POC VBG pCO2 at Temp POC VBG HCO3 POC VBG Total CO2 POC VBG Base Excess POC Total CO2 20.0 L C-Reactive Protein NT-Pro-B Natriuret Pep Total Protein 5.3 L Albumin 2.6 L Lipase 4 L Procalcitonin Urine Ketones Urine Urobilinogen Meds: Medications Acetaminophen (Acetaminophen 325 Mg Tablet) 650 mg PO Q6HP PRN; Protocol PRN Reason: Per Pain Protocol/Fever > 101 Albuterol/Ipratropium (Ipratropium/Albuterol 3 Ml Ampul.Neb) 3 ml NEB Q4HP PRN PRN Reason: Shortness Of Breath Enoxaparin Sodium (Enoxaparin 40 Mg/0.4 Ml Syringe) 40 mg SQ DAILY [facility] Potassium Chloride 40 meq/ (Dextrose) 520 mls @ 130 mls/hr IV UD PRN PRN Reason: Potassium < 3 Magnesium Sulfate (Magnesium Sulfate) 2 gm in 50 mls @ 50 mls/hr IV UD PRN PRN Reason: Magnesium </= 1.6 Sodium Chloride (Sodium Chloride 0.9%) 1,000 mls @ 100 mls/hr IV .Q10H [facility] Stop: 01/12/22 19:38 Last Admin: 01/11/22 23:41 Dose: 100 mls/hr Ondansetron HCl (Ondansetron 4 Mg/2 Ml Vial) 4 mg IV Q4HP PRN PRN Reason: Nausea And Vomiting Pantoprazole Sodium (Pantoprazole 40 Mg Tablet) 40 mg PO QAMAC [facility] Last Admin: 01/12/22 07:07 Dose: 40 mg Potassium Chloride (Potassium Chloride 20 Meq Tablet) 40 meq PO UD PRN PRN Reason: Potssium is 3-3.5 Last Admin: 01/12/22 01:32 Dose: 40 meq Potassium Chloride (Potassium Chloride 20 Meq Tablet) 40 meq PO UD PRN PRN Reason: Potassium < 3 Sodium Chloride (0.9 % Sodium Chloride 10 Ml Syringe) 10 ml IV Q8 [facility] Last Admin: 01/12/22 05:49 Dose: Not Given A/P Narrative A/P Narrative: A: *Colitis w/diarrhea: inflammatory vs ischemic vs doubtful infectious -low pct, no leukocytosis or fever, lactate wnl *Generalized weakness/deconditioning/poor appetite *Hypotension: improved with IVF *Volume depletion: improving *Central Sleep Apnea: On BiPAP with 4L O2 while sleeping *COPD(not on o2 while awake): *A. fib, chronic: Stopped taking Eliquis because of fall risk after discussion with physician *Parkinson's: *Seizure d/o: *Depression/anxiety: *Hypothyroidism: tsh wnl *GERD: *chronic LE wounds: follows with wound care P: -IVF -discussed with surgeon, will monitor for further bleeding after lovenox stopp ed, if further bleeding occurs and needing therapeutic/diagnostic endoscopy then pt will need to be shipped where GI is available. -monitor H&H -hold any abx for now -monitor bp closely -hold home lasix for now -Continue home amiodarone -wound care -home bipap -dietary -PT/OT -CM for placement needs versus C -ppx: Lovenox(hold, and change to SCD) / home ppi Time Spent With Patient Time: Total time spent is greater than 50% in coordination of care (as documented) at patient's floor/unit and/or counseling patient: Total time spent with greater than 50% in coordination of care (as documented) a t patient's floor/unit and/or counseling patient:: 35 - 50 minutes
[2022-01-12 07:55] LABS: ALT/SGPT 8 U/L (<40); AST/SGOT 41 U/L (<40); Albumin 2.2 gm/dL (3.2-5.2); Albumin/Globulin Ratio 0.9 (1.0-2.3); Alkaline Phosphatase 107 U/L (39-117); Bilirubin,Direct < 0.2 mg/dL (0-0.3); Bilirubin,Total 0.3 mg/dL (0.1-1.0); Blood Urea Nitrogen 14 mg/dL (8-23); Calcium 7.8 mg/dL (8.6-10.4); Carbon Dioxide 20 mmol/L (22-30); Chloride 108 mmol/L (96-108); Globulin 2.4 gm/dL (2.2-3.7); Glomerular Filtration Rate 87; Glucose 78 mg/dL (70-105); Lactate Dehydrogenase 200 U/L (135-225); Phosphorous 3.1 mg/dL (2.5-4.5); Triglycerides 83 mg/dL (<150)
[2022-01-12] MEDS ORDERED: NALOXONE NAS PRN (08:14)
[2022-01-12] MEDS: lamoTRIgine 100 MG TABLET PO SCH ×2 (08:46→20:53)
[2022-01-12] MEDS: METHOCARBAMOL 750 MG TABLET PO SCH ×4 (08:46→20:56)
[2022-01-12] MEDS: oxyCODONE 10 MG TAB.ER.12H PO SCH ×3 (08:47→20:52)
[2022-01-12] MEDS: AMIODARONE HCL 200 MG TABLET PO SCH (08:47)
[2022-01-12] MEDS: DIVALPROEX SODIUM 250 MG TABLET PO SCH ×3 (08:47→20:52)
[2022-01-12] MEDS: LEVOTHYROXINE 75 MCG TABLET PO SCH (08:48)
[2022-01-12] MEDS: COLCHICINE 0.6 MG CAPSULE PO SCH (08:48)
[2022-01-12] MEDS: CARBIDOPA/LEVODOPA 25/100 TABLET PO SCH ×4 (08:48→20:53)
[2022-01-12] MEDS ORDERED: TOPIRAMATE 100 MG PO SCH (09:00)
[2022-01-12] MEDS ORDERED: ENOXAPARIN 40 MG/0.4 ML SYRINGE SQ SCH (09:00)
[2022-01-12] MEDS ORDERED: TOPIRAMATE 200 MG PO SCH (09:00)
--- NOTE | 2022-01-12 09:12 | EKG ---
[facility] Test Date: 2022-01-11 Pat Name: Rohan Arcos Department: ED Room: Gender: Male Regional Director Of Admissions: PUNEET : 1955 Requested By: Fadi Luong Order Number: [id number] Reading MD: Rohan Silva Measurements Intervals [place] Rate: 56 P: 47 MN: 201 QRS: -37 QRSD: 115 T: -44 QT: 476 QTc: 460 Interpretive Statements Sinus rhythm Nonspecific IVCD with LAD Nonspecific T abnormalities, anterior leads Electronically Signed On 01-12-2022 9:12:09 PDT by Rohan Silva /store/[email or web address]/[id number]/[id number].pdf
--- NOTE | 2022-01-12 09:12 | EKG ---
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
[2022-01-12] MEDS: 0.9 % SODIUM CHLORIDE 1,000 ML IV SCH (10:21)
[2022-01-12] MEDS: ONDANSETRON 4 MG/2 ML VIAL IV PRN (10:40)
[2022-01-12] MEDS: Vibegron [Gemtesa] 75 mg tablet PO SCH (12:14)
[2022-01-12] MEDS: [UNRECOGNIZED DRUG - OTHER] PO SCH (12:15)
[2022-01-12] MEDS: TOPIRAMATE 100 MG PO SCH ×2 (12:15→20:55)
[2022-01-12] MEDS: MOMETASONE NAS SCH ×2 (12:20→20:56)
[2022-01-12] MEDS: OLODATEROL INH SCH (12:20)
[2022-01-12] MEDS: TIOTROPIUM INH SCH (12:20)
[2022-01-12 12:40] LABS: Hematocrit 39.9 % (40.1-51.0); Hemoglobin 12.8 g/dL (13.7-17.5)
[2022-01-12 17:47] LABS: Hematocrit 41.1 % (40.1-51.0)
[2022-01-12] MEDS: TAMSULOSIN 0.4 MG CAPSULE PO SCH (20:52)
[2022-01-12] MEDS: MELATONIN 3 MG TABLET PO SCH (20:53)
[2022-01-12] MEDS: ARIPIPRAZOLE 5 MG TABLET PO SCH (20:53)
[2022-01-12] MEDS: TOPIRAMATE 200 MG PO SCH (20:54)
[2022-01-12] MEDS: OLANZapine 5 MG TABLET PO SCH (20:54)
[2022-01-12] MEDS: OPICAPONE 50 MG PO SCH (20:56)
[2022-01-13] MEDS: 0.9 % SODIUM CHLORIDE 10 ML SYRINGE IV SCH ×3 (05:22→21:33)
[2022-01-13 06:45] LABS: Hematocrit 35.3 % (40.1-51.0); Hemoglobin 11.5 g/dL (13.7-17.5)
[2022-01-13 07:14] LABS: ALT/SGPT < 5 U/L (<40); AST/SGOT 26 U/L (<40); Albumin 1.9 gm/dL (3.2-5.2); Alkaline Phosphatase 97 U/L (39-117); Bilirubin,Direct < 0.2 mg/dL (0-0.3); Bilirubin,Total 0.3 mg/dL (0.1-1.0); Blood Urea Nitrogen 11 mg/dL (8-23); Calcium 7.8 mg/dL (8.6-10.4); Carbon Dioxide 23 mmol/L (22-30); Chloride 108 mmol/L (96-108); Globulin 1.9 gm/dL (2.2-3.7); Glomerular Filtration Rate 87; Glucose 73 mg/dL (70-105); Lactate Dehydrogenase 121 U/L (135-225); Phosphorous 2.8 mg/dL (2.5-4.5); Triglycerides 73 mg/dL (<150); Uric Acid 2.6 mg/dL (2.5-8.0)
[2022-01-13] MEDS: PANTOPRAZOLE 40 MG TABLET PO SCH (07:45)
--- NOTE | 2022-01-13 08:42 | Internal Med Progress Note ---
SUBJECTIVE Subjective Patient information: Note initiated : 01/13/22 at 8:38 am Service Date, if different from initiated Date: [] Patient: Rohan Arcos a 66 y/o M admitted on 01/13/22 for UTI. Chief Complaint: [] Interval history: History of present illness: Mr. Arcos is a 66 year old M Presents the ED with his for generalized weakness lethargy poor appetite poor oral intake dark urine and being a little foggy. is assisting with the history. She says for about 5 days this is been going on and progressing. [place] he was in his normal state of health. He has been around 80 but has been sick and no traveling. In the ED he was evaluated found to have blood pressures down about a systolic of 80 which improved to the 90s with IV fluid. reports no medication changes other than stopping Eliquis because they are worried about his fall risk after she talked to the cardiology PA the understanding of the increased risk for stroke. Labs were essentially unremarkable. She did have some ketones in the urine but did not look infected. CT brain with some chronic ischemic changes but no acute. CT abdomen pelvis showed mild wall thickening and mucosal enhancement throughout the colon suggesting infection versus an inflammatory or ischemic colitis. No other acute findings in the abdomen. Patient does report that he is also had diarrhea for about that period of time which is unusual for him. His states she still has about 1 episode a day and then she will give Imodium so he is only had about 1 episode each day. Is also had some nausea vomiting few times throughout this past few days. His has had to crush his pills to make it easier for him to swallow. Denies any pain with swallowing. He had an EGD and a colonoscopy 6 [address] Rushing says were unremarkable. 01/12 No overnight event or new complaints other than poor sleep. Patient had a good breakfast this morning. Patient states still having diarrhea. C. difficile study negative. Fecal leukocyte rare. Stool cultures for enteric pathogens negative. Sometime after her rounded on him the nurse reported he had a large bloody bowel movement, confirmed guaiac positive. Stat H&H ordered. Will discuss with general surgery for possible colonoscopy. 01/13 Patient slept well. No new complaints other than he did have another bloody bowel movement this morning. Hemoglobin has dropped to 11.5 but part of that is delusional. Patient does follow with Dr. Rushing and if he remains stable then will likely have him follow-up with [facility] for endoscopy. Review of Systems: denies headache/fever/chills/nausea/vomiting/chest or abdominal pain/cough/dyspnea. Otherwise see above. Constitutional Vitals: Vital Signs Temp Pulse Resp BP Pulse Ox O2 Del Method O2 Flow Rate 98.2 F 58 L 14 109/71 96 4 01/13/22 08:01 01/13/22 08:01 01/13/22 08:01 01/13/22 08:01 01/13/22 08:01 01/13/22 02:00 01/13/22 02:00 Period Temp Pulse Resp BP Sys/Kwon Pulse Ox O2 Del Method O2 Flow Rate Last 24 Hr 97 F-98.3 F 52-67 12-23 82-109/52-75 90-100 BiPAP-Room Air 4 Intake and Output 01/12/22 01/13/22 01/13/22 21:59 05:59 13:59 Intake Total 1120 518 Output Total 200 125 Balance 920 393 Weight 98.033 kg Intake & Output: Intake & Output 01/12/22 01/13/22 01/13/22 21:59 05:59 13:59 Intake Total 1120 518 Output Total 200 125 Balance 920 393 Weight 98.033 kg Intake: IV 1000 Sodium Chloride 0.9% 1,000 ml @ 1000 100 mls/hr IV .Q10H [facility] Rx#: [id number] Oral 120 518 Output: Void Amount 200 125 Other: Meal can of soup Percent of Meal Consumed 100% Urine Appearance Clear Clear Urine Color Tea Colored Dark Harper Exam: General: Alert, Awake, No acute Distress Eyes/N/T: EOMI, Head/Neck: neck supple, CV: RRR, No murmurs, Pulm: Clear b/l, no wheezing/rhonchi/rales Abd: soft, nontender, +BS x4 Ext: no clubbing/cyanosis, b/l LE edema Neuro: Alert, no focal deficits, moves all extremities, Skin: warm/dry OBJ DATA Labs CBC & Chem 7: 01/13/22 05:57 01/13/22 05:57 Labs: Abnormal Lab Results 01/13/22 01/13/22 01/12/22 05:57 05:57 17:20 RBC Hgb 11.5 L 13.0 L Hct 35.3 L RDW Immature Gran % (Auto) [place] % (Auto) Immature Gran # RBC Morphology Anisocytosis POC VBG pCO2 at Temp POC VBG HCO3 POC VBG Total CO2 POC VBG Base Excess Carbon Dioxide POC Total CO2 Anion Gap 3.0 L Calcium 7.8 L AST Lactate Dehydrogenase 121 L C-Reactive Protein NT-Pro-B Natriuret Pep Total Protein 3.8 L Albumin 1.9 L Globulin 1.9 L Albumin/Globulin Ratio Lipase Procalcitonin Urine Ketones Urine Urobilinogen 01/12/22 01/12/22 01/12/22 11:48 05:51 05:51 RBC 4.18 L Hgb 12.8 L 13.2 L Hct 39.9 L RDW 17.4 H Immature Gran % (Auto) [place] % (Auto) Immature Gran # RBC Morphology Abnormal A Anisocytosis 1+ A POC VBG pCO2 at Temp POC VBG HCO3 POC VBG Total CO2 POC VBG Base Excess Carbon Dioxide 20 L POC Total CO2 Anion Gap Calcium 7.8 L AST 41 H Lactate Dehydrogenase C-Reactive Protein NT-Pro-B Natriuret Pep Total Protein 4.6 L Albumin 2.2 L Globulin Albumin/Globulin Ratio 0.9 L Lipase Procalcitonin Urine Ketones Urine Urobilinogen 01/11/22 01/11/22 01/11/22 22:03 18:54 18:37 RBC Hgb Hct RDW Immature Gran % (Auto) [place] % (Auto) Immature Gran # RBC Morphology Anisocytosis POC VBG pCO2 at Temp 40.2 L POC VBG HCO3 21.9 L POC VBG Total CO2 23.0 L POC VBG Base Excess -4.0 L Carbon Dioxide POC Total CO2 Anion Gap Calcium AST Lactate Dehydrogenase C-Reactive Protein 1.50 H NT-Pro-B Natriuret Pep Total Protein Albumin Globulin Albumin/Globulin Ratio Lipase Procalcitonin 0.10 H Urine Ketones Urine Urobilinogen 01/11/22 01/11/22 01/11/22 18:37 16:30 16:12 RBC Hgb Hct RDW Immature Gran % (Auto) [place] % (Auto) Immature Gran # RBC Morphology Anisocytosis POC VBG pCO2 at Temp POC VBG HCO3 POC VBG Total CO2 POC VBG Base Excess Carbon Dioxide POC Total CO2 20.0 L Anion Gap Calcium AST Lactate Dehydrogenase C-Reactive Protein NT-Pro-B Natriuret Pep 1686.0 H Total Protein Albumin Globulin Albumin/Globulin Ratio Lipase Procalcitonin Urine Ketones 5 A Urine Urobilinogen 2.0 A 01/11/22 01/11/22 16:07 16:07 RBC 4.28 L Hgb 13.6 L Hct RDW 17.1 H Immature Gran % (Auto) 1.1 H [place] % (Auto) 12.7 H Immature Gran # 0.08 H RBC Morphology Anisocytosis POC VBG pCO2 at Temp POC VBG HCO3 POC VBG Total CO2 POC VBG Base Excess Carbon Dioxide POC Total CO2 Anion Gap Calcium AST Lactate Dehydrogenase C-Reactive Protein NT-Pro-B Natriuret Pep Total Protein 5.3 L Albumin 2.6 L Globulin Albumin/Globulin Ratio Lipase 4 L Procalcitonin Urine Ketones Urine Urobilinogen Meds: Medications Acetaminophen (Acetaminophen 325 Mg Tablet) 650 mg PO Q6HP PRN; Protocol PRN Reason: Per Pain Protocol/Fever > 101 Albuterol/Ipratropium (Ipratropium/Albuterol 3 Ml Ampul.Neb) 3 ml NEB Q4HP PRN PRN Reason: Shortness Of Breath Amiodarone HCl (Amiodarone Hcl 200 Mg Tablet) 200 mg PO DAILY [facility] Last Admin: 01/12/22 08:47 Dose: 200 mg Carbidopa/Levodopa (Carbidopa/Levodopa 25/100 Tablet) 3 tab PO QID [facility] Last Admin: 01/12/22 20:53 Dose: 3 tab Colchicine (Colchicine 0.6 Mg Capsule) 0.6 mg PO QDAY [facility] Last Admin: 01/12/22 08:48 Dose: 0.6 mg Divalproex Sodium (Divalproex Sodium 250 Mg Tablet) 500 mg PO TID [facility] Last Admin: 01/12/22 20:52 Dose: 500 mg Potassium Chloride 40 meq/ (Dextrose) 520 mls @ 130 mls/hr IV UD PRN PRN Reason: Potassium < 3 Magnesium Sulfate (Magnesium Sulfate) 2 gm in 50 mls @ 50 mls/hr IV UD PRN PRN Reason: Magnesium </= 1.6 Lamotrigine (Lamotrigine 100 Mg Tablet) 150 mg PO BID [facility] Last Admin: 01/12/22 20:53 Dose: 150 mg Levothyroxine Sodium (Levothyroxine 75 Mcg Tablet) 75 mcg PO DAILY [facility] Last Admin: 01/12/22 08:48 Dose: 75 mcg Lidocaine (Lidocaine Patch) 1 patch TOPICAL DAILYP PRN PRN Reason: Pain Melatonin (Melatonin 3 Mg Tablet) 9 mg PO HS [facility] Last Admin: 01/12/22 20:53 Dose: 9 mg Methocarbamol (Methocarbamol 750 Mg Tablet) 750 mg PO QID [facility] Last Admin: 01/12/22 20:56 Dose: Not Given Olanzapine (Olanzapine 5 Mg Tablet) 5 mg PO QHS [facility] Last Admin: 01/12/22 20:54 Dose: 5 mg Ondansetron HCl (Ondansetron 4 Mg/2 Ml Vial) 4 mg IV Q4HP PRN PRN Reason: Nausea And Vomiting Last Admin: 01/12/22 10:40 Dose: 4 mg Oxycodone HCl (Oxycodone 10 Mg Tab.Er.12h) 10 mg PO TID [facility]; Protocol Last Admin: 01/12/22 20:52 Dose: 10 mg Pantoprazole Sodium (Pantoprazole 40 Mg Tablet) 40 mg PO QAMAC [facility] Last Admin: 01/13/22 07:45 Dose: 40 mg Dexlansoprazole [ (Dexilant] 60 Mg) 1 dose PO BID [facility] Last Admin: 01/12/22 20:54 Dose: 1 dose Istradefylline [ Nourianz] 40 Mg Tablet) 1 dose PO QDAY [facility] Last Admin: 01/12/22 12:15 Dose: 1 dose Mometasone 200 Mcg/ (Actuation) 2 dose MARTITA BID [facility] Last Admin: 01/12/22 20:56 Dose: Not Given Naloxone 4 Mg/ (Actuation [place]) 1 dose MARTITA Q2M PRN PRN Reason: EXCESSIVE SEDATION Olodaterol 2.5 Mcg/ (Actuation) 2 dose INH DAILY [facility] Last Admin: 01/12/22 12:20 Dose: Not Given (Opicapone [Ongentys (] 50 Mg) 1 dose PO QHS [facility] Last Admin: 01/12/22 20:56 Dose: Not Given Vibegron [Gemtesa] (75 Mg Tablet) 1 dose PO QDAY [facility] Last Admin: 01/12/22 12:14 Dose: 1 dose Topiramate 100 Mg Capsule,Sprinkle,Er 24hr 1 dose PO [facility] Last Admin: 01/12/22 20:55 Dose: Not Given Topiramate 200 Mg (Capsule,Sprinkle,Er) 2 dose PO [facility] Last Admin: 01/12/22 20:54 Dose: 2 dose Potassium Chloride (Potassium Chloride 20 Meq Tablet) 40 meq PO UD PRN PRN Reason: Potssium is 3-3.5 Last Admin: 01/12/22 01:32 Dose: 40 meq Potassium Chloride (Potassium Chloride 20 Meq Tablet) 40 meq PO UD PRN PRN Reason: Potassium < 3 Sodium Chloride (0.9 % Sodium Chloride 10 Ml Syringe) 10 ml IV Q8 [facility] Last Admin: 01/13/22 05:22 Dose: 10 ml Tamsulosin HCl (Tamsulosin 0.4 Mg Capsule) 0.8 mg PO QHS [facility] Last Admin: 01/12/22 20:52 Dose: 0.8 mg A/P Narrative A/P Narrative: A: *Colitis w/diarrhea which subsequently became bloody: ?ischemic -does not appear to be infectious;low pct, no leukocytosis or fever, lactate wnl, stool cx's neg *GI Bleed: appears lower and likely 2/2 diverticulosis vs watershed ischemic -episode this morning. *Generalized weakness/deconditioning/poor appetite *Hypotension: improved with IVF, does drops some while sleeping, asymptomatic *Volume depletion: improved *Central Sleep Apnea: On BiPAP with 4L O2 while sleeping *COPD(not on o2 while awake): *A. fib, chronic: Stopped taking Eliquis because of fall risk after discussion with physician *Parkinson's: *Seizure d/o: *Depression/anxiety: *Hypothyroidism: tsh wnl *GERD: *chronic LE wounds: follows with wound care P: -s/p IVF -monitor for further bleeding -discussed with surgeon, will monitor for further bleeding after lovenox stopped, if further bleeding occurs and needing therapeutic/diagnostic endoscopy then pt will need to be shipped where GI is available. -monitor H&H -monitor bp closely -Continue home amiodarone -wound care -home bipap -dietary -PT/OT -CM for placement needs versus HHC -ppx: Lovenox(hold, and changed to SCD) / home ppi Time Spent With Patient Time: Total time spent is greater than 50% in coordination of care (as documented) at patient's floor/unit and/or counseling patient: Total time spent with greater than 50% in coordination of care (as documented) at patient's floor/unit and/or counseling patient:: 35 - 50 minutes
[2022-01-13] MEDS: AMIODARONE HCL 200 MG TABLET PO SCH (09:40)
[2022-01-13] MEDS: COLCHICINE 0.6 MG CAPSULE PO SCH (09:40)
[2022-01-13] MEDS: lamoTRIgine 100 MG TABLET PO SCH ×2 (09:41→21:34)
[2022-01-13] MEDS: DIVALPROEX SODIUM 250 MG TABLET PO SCH ×3 (09:41→21:35)
[2022-01-13] MEDS: oxyCODONE 10 MG TAB.ER.12H PO SCH (09:42)
[2022-01-13] MEDS: [UNRECOGNIZED DRUG - OTHER] PO SCH (09:45)
[2022-01-13] MEDS: Vibegron [Gemtesa] 75 mg tablet PO SCH (09:45)
[2022-01-13] MEDS: MOMETASONE NAS SCH ×2 (09:45→21:37)
[2022-01-13] MEDS: OLODATEROL INH SCH (09:45)
[2022-01-13] MEDS: TIOTROPIUM INH SCH (09:45)
[2022-01-13] MEDS: METHOCARBAMOL 750 MG TABLET PO SCH ×4 (09:45→21:34)
[2022-01-13] MEDS: LEVOTHYROXINE 75 MCG TABLET PO SCH (09:46)
[2022-01-13] MEDS: CARBIDOPA/LEVODOPA 25/100 TABLET PO SCH ×4 (09:46→21:34)
--- NOTE | 2022-01-13 11:10 | Discharge Summary ---
Discharge Provider Provider IMPORTANT FOLLOW-UP INFORMATION FOR PCP: Patient information: Note initiated : 01/13/22 at 11:09 am Service Date, if different from initiated Date: [] Patient: Rohan Arcos 66 y/o M admitted on 01/13/22 for UTI. Chief Complaint: [] Date of admission: 01/13/22 00:21 Discharge date: 01/14/22 Primary care physician: Renee Ambriz Consults: 01/11/22 Consult to Physician [CONS] Stat Comment: Consulting Provider: Cody Yepez Reason For Exam: Physician to Consult COURSE Hospital Course Hospital course: History of present illness: Mr. Arcos is a 66 year old M Presents the ED with his for generalized weakness lethargy poor appetite poor oral intake dark urine and being a little foggy. is assisting with the history. She says for about 5 days this is been going on and progressing. Tonight he was in his normal state of health. He has been around 80 but has been sick and no traveling. In the ED he was evaluated found to have blood pressures down about a systolic of 80 which improved to the 90s with IV fluid. reports no medication changes other than stopping Eliquis because they are worried about his fall risk after she talked to the cardiology PA the understanding of the increased risk for stroke. Labs were essentially unremarkable. She did have some ketones in the urine but did not look infected. CT brain with some chronic ischemic changes but no acute. CT abdomen pelvis showed mild wall thickening and mucosal enhancement throughout the colon suggesting infection versus an inflammatory or ischemic colitis. No other acute findings in the abdomen. Patient does report that he is also had diarrhea for about that period of time which is unusual for him. His states she still has about 1 episode a day and then she will give Imodium so he is only had about 1 episode each day. Is also had some nausea vomiting few times throughout this past few days. His has had to crush his pills to make it easier for him to swallow. Denies any pain with swallowing. He had an EGD and a colonoscopy 6 to [address] Rushing says were unremarkable. 01/12 No overnight event or new complaints other than poor sleep. Patient had a good breakfast this morning. Patient states still having diarrhea. C. difficile study negative. Fecal leukocyte rare. Stool cultures for enteric pathogens negative. Sometime after her rounded on him the nurse reported he had a large bloody bowel movement, confirmed guaiac positive. Stat H&H ordered. Will discuss with general surgery for possible colonoscopy. 01/13 Patient slept well. No new complaints other than he did have another bloody bowel movement this morning. Hemoglobin has dropped to 11.5 but part of that is delusional. Patient does fo llow with Dr. Rushing and if he remains stable then will likely have him follow-up with [facility] for endoscopy. 01/14 Patient who has a history of seizures did have a brief subtle seizure last night. With a very brief postictal period. Patient otherwise doing well for remainder of night and doing well this morning. No bowel movement since yesterday morning. Patient does not feel like he is found to have a bowel movement and will await bowel movement to see bleeding status. 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 No further bowel movements and will plan for discharge. Globin stable from yesterday. His blood pressure did drop quite a bit again today after morning medications just like yesterday. I suspect assessment its his Scheduled Robaxin, will change that to as needed. Amiodarone could be contributing as well, but will start with the Robaxin adjustment. Follow-up blood pressure when I checked on him just a minute ago revealed a systolic of 119 with a good diastolic. A: *Colitis w/diarrhea which subsequently became bloody: ?ischemic -does not appear to be infectious;low pct, no leukocytosis or fever, lactate wnl, stool cx's neg *GI Bleed: appears lower and likely 2/2 diverticulosis vs watershed ischemic -episode this morning. *Generalized weakness/deconditioning/poor appetite *Hypotension: improved with IVF, does drops some while sleeping, asymptomatic *Volume depletion: improved *Central Sleep Apnea: On BiPAP with 4L O2 while sleeping *COPD(not on o2 while awake): *A. fib, chronic: Stopped taking Eliquis because of fall risk after discussion with physician *Parkinson's: *Seizure d/o: *Depression/anxiety: *Hypothyroidism: tsh wnl *GERD: *chronic LE wounds: follows with wound care P: -f/u with Dr. Keenan -discussed with surgeon, will monitor for further bleeding after lovenox stopped, if further bleeding occurs and needing therapeutic/diagnostic endoscopy then pt will need to be shipped where GI is available. Discharge diagnosis: Colitis with bloody diarrhea suspect ischemic watershed Secondary discharge diagnosis: GI bleed lower generalized weakness deconditioning hypertension vomited patient Central sleep apnea COPD A. fib Parkinson's seizure disorder depression anxiety hypothyroidism GERD chronic wounds Time Spent with Patient Time attestation: Total time spent providing and/or coordinating discharge services: Time spent: Greater than 30 minutes EXAM Constitutional Vitals: Temp Pulse Resp BP Pulse Ox O2 Del Method O2 Flow Rate 98.2 F 58 L 21 110/86 96 4 01/13/22 08:01 01/13/22 08:01 01/13/22 10:01 01/13/22 10:01 01/13/22 08:01 01/13/22 02:00 01/13/22 02:00 Discharge Data Data Completed and Pending Labs on day of discharge: Labs from last 24 hours 01/13/22 01/13/22 01/12/22 05:57 05:57 17:20 Hgb 11.5 L 13.0 L Hct 35.3 L 41.1 Sodium 134 Potassium 3.8 Chloride 108 Carbon Dioxide 23 Anion Gap 3.0 L BUN 11 Creatinine 0.9 GFR Calculation 87 Glucose 73 Uric Acid 2.6 Calcium 7.8 L Phosphorus 2.8 Magnesium 1.8 Total Bilirubin 0.3 Direct Bilirubin < 0.2 GGT 39 AST 26 ALT < 5 Alkaline Phosphatase 97 Lactate Dehydrogenase 121 L Total Protein 3.8 L Albumin 1.9 L Globulin 1.9 L Albumin/Globulin Ratio 1.0 Triglycerides 73 01/12/22 11:48 Hgb 12.8 L Hct 39.9 L Sodium Potassium Chloride Carbon Dioxide Anion Gap BUN Creatinine GFR Calculation Glucose Uric Acid Calcium Phosphorus Magnesium Total Bilirubin Direct Bilirubin GGT AST ALT Alkaline Phosphatase Lactate Dehydrogenase Total Protein Albumin Globulin Albumin/Globulin Ratio Triglycerides Preliminary micro results at discharge 01/11/22 18:45 Blood Culture - Preliminary Blood 01/11/22 18:35 Blood Culture - Preliminary Blood Discharge Plan Patient/Caregiver Discharge Instructions Activity: increase activity as tolerated Diet: Regular Diet Activity Restrictions/Additional Instructions: Follow-up with PCP in 3 to 7 days. Follow-up with Dr. Rushing within a week for GI bleed. Prescriptions: Continued naloxone 4 mg/actuation spray,non-aerosol 1 spray INTRANASAL Q2M PRN (Reason: EXCESSIVE SEDATION) Rx Instructions: spray 1 dose into ONE nostril; alternate nostrils w each dose until help arrives urea 10 % lotion 1 applic TOPICAL BID aripiprazole 10 mg tablet 10 mg PO HS Rx Instructions: Pt takes at night diclofenac sodium 1 % gel See Rx Instructions topical QID Rx Instructions: 2-4 Grams topical four times daily; apply to single elbow, wrist or hand; for hand includes palm/fingers/back of hand (DME) disposable gloves [Nitrile Exam Gloves] Misc See Rx Instructions .Route Rx Instructions: As directed methyl salicylate-menthol 30 % topical QID (DME) Poise Pads Pad See Rx Instructions .Route Rx Instructions: As directed (DME) facial-body wipes Misc See Rx Instructions .Route Rx Instructions: As directed mometasone 200 mcg/actuation HFA aerosol inhaler 2 puff inhalation BID (DME) underpads [Air Permeable Underpad] 23 X 36 " pad See Rx Instructions .Route Rx Instructions: As directed carbidopa-levodopa 25-100 mg tablet 3 tab PO QID Rx Instructions: Pts told this RN that he missed his 0400 and nightime dose of this medication on 01/11/22. furosemide 20 mg tablet 10 mg PO QDAY Nourianz 40 mg tablet 40 mg PO QDAY Ongentys 50 mg capsule 50 mg PO QHS Rx Instructions: must be taken on empty stomach, at least 1 hr before or after a meal/food (DME) Bipap with back up rate See Rx Instructions .Route .MEDSUPPLY Qty: 1 0RF Rx Instructions: settings: 24/01 with back up rate of 9. (DME) Pulse oximeter device See Rx Instructions .Route .MEDSUPPLY Qty: 1 0RF Rx Instructions: As directed Amitiza 24 mcg capsule 24 mcg PO BIDCC Label Comments: Patient's told this Rn that he missed his 16:00 dose, but did receive his am dose on 01/11/22. dexlansoprazole [Dexilant] 60 mg capsule,biphase delayed releas 60 mg PO BID Rx Instructions: Pt takes in am and at 16:00; told this Rn that he missed his 0400 dose 01/11/22 Gemtesa 75 mg tablet 75 mg PO QDAY colchicine 0.6 mg tablet 0.6 mg PO QDAY amiodarone 200 mg tablet 200 mg PO DAILY topiramate 100 mg capsule,sprinkle,ER 24hr 100 mg PO HS Label Comments: Pts told this RN that the patient missed his 16:00 dose 01/11/22. Rx Instructions: IN ADDITION TO 200MG CAPS oxycodone [OxyContin] 10 mg tablet,oral only,ext.rel.12 hr 10 mg PO TID Label Comments: Pt's told this Rn that he got his am dose but did not get his 16:00 dose and his HS dose. lamotrigine 150 mg tablet 150 mg PO BID Label Comments: Takes every am and at night. Missed 01/11/22 bedtime dose ondansetron 4 mg tablet,disintegrating 4 mg translingual Q4H PRN (Reason: Nausea) topiramate 200 mg capsule,sprinkle,ER 24hr 400 mg PO HS Label Comments: Pt's told this RN that he missed his PM dose 01/11/22, but took his morning dose. Rx Instructions: GIVE IN ADDITION TO 100MG levothyroxine 75 MCG tablet 75 mcg PO DAILY docusate sodium 100 MG capsule 200 mg PO BID Label Comments: Pt takes at noon 12:00 and at 16:00. told this RN he missed his 16:00 dose 01/11/22. olanzapine 5 mg Tablet 5 mg PO QHS melatonin 10 mg Tablet,Ext Release Multiphase 10 mg PO HS lidocaine [Lidoderm] 5 % adhesive patch,medicated 1 patch topical DAILYP PRN (Reason: Pain) Rx Instructions: Place on affected area for 12 hours, then remove for 12 hours. divalproex 500 mg Tablet,Delayed Release (Dr/Ec) 500 mg PO TID Label Comments: Pt told this Rn that he missed his 16:00 dose and his bedtime dose 01/11/22. bisacodyl [Dulcolax (bisacodyl)] 5 mg Tablet,Delayed Release (Dr/Ec) 10 mg PO ONCE fluticasone propionate 50 mcg/actuation [place],Suspension 2 spray INTRANASAL QDAY Rx Instructions: administer into each nostril tamsulosin 0.4 mg capsule 0.8 mg PO QHS acetaminophen 650 mg QID Label Comments: Patient takes 650 mg four times a day(morning, noon, 4 pm, and at night) sucralfate 1 gram Tablet 1 g PO QID cholecalciferol (vitamin D3) 50 mcg (2,000 unit) Tablet 50 mcg PO QDAY cyanocobalamin (vitamin B-12) 500 mcg Tablet 500 mcg PO QDAY ferrous gluconate 324 mg (37.5 mg iron) Tablet 324 mg PO QDAY magnesium oxide 324 mg PO DAILY Changed methocarbamol 750 mg Tablet 750 mg PO QIDP PRN (Reason: spasm) Qty: 1 0RF No Action Stiolto Respimat 2.5-2.5 mcg/actuation Mist 2 puff INHALATION QDAY Follow Up Plan Follow up with: Mio Keenan MD [Physician] - (GI bleeding) Renee Ambriz ARNP [Primary Care Provider] - 01/16/22 1:00 pm Patient Disposition: Home Health Service Overall status at discharge: patient is progressing back to baseline Discharge Orders: Discharge Order (Routine); Ordered 01/14/22 Ordered By: Cody Yepez
[2022-01-13] MEDS ORDERED: oxyCODONE 10 MG TAB.ER.12H PO PRN (12:34)
[2022-01-13] MEDS: FUROSEMIDE 20 MG TABLET PO SCH (12:35)
[2022-01-13] MEDS ORDERED: ALBUMIN HUMAN 12.5 GM/50 ML BAG IV ONE (12:37)
[2022-01-13] MEDS ORDERED: LORazepam 2 MG/ML VIAL IV PRN (20:10)
[2022-01-13] MEDS: MELATONIN 3 MG TABLET PO SCH (21:33)
[2022-01-13] MEDS: OLANZapine 5 MG TABLET PO SCH (21:33)
[2022-01-13] MEDS: ONDANSETRON 4 MG/2 ML VIAL IV PRN (21:33)
[2022-01-13] MEDS: ARIPIPRAZOLE 5 MG TABLET PO SCH (21:33)
[2022-01-13] MEDS: TAMSULOSIN 0.4 MG CAPSULE PO SCH (21:34)
[2022-01-13] MEDS: TOPIRAMATE 200 MG PO SCH (21:35)
[2022-01-13] MEDS: TOPIRAMATE 100 MG PO SCH (21:36)
[2022-01-13] MEDS: OPICAPONE 50 MG PO SCH (21:37)
[2022-01-14] MEDS: 0.9 % SODIUM CHLORIDE 10 ML SYRINGE IV SCH ×2 (05:46→13:48)
[2022-01-14 06:51] LABS: Hematocrit 34.8 % (40.1-51.0); Hemoglobin 11.4 g/dL (13.7-17.5)
--- NOTE | 2022-01-14 07:59 | Internal Med Progress Note ---
SUBJECTIVE Subjective Patient information: Note initiated : 01/14/22 at 7:58 am Service Date, if different from initiated Date: [] Patient: Rohan Arcos a 66 y/o M admitted on 01/13/22 for UTI. Chief Complaint: [] Interval history: History of present illness: Mr. Arcos is a 66 year old M Presents the ED with his for generalized weakness lethargy poor appetite poor oral intake dark urine and being a little foggy. is assisting with the history. She says for about 5 days this is been going on and progressing. [place] he was in his normal state of health. He has been around 80 but has been sick and no traveling. In the ED he was evaluated found to have blood pressures down about a systolic of 80 which improved to the 90s with IV fluid. reports no medication changes other than stopping Eliquis because they are worried about his fall risk after she talked to the cardiology PA the understanding of the increased risk for stroke. Labs were essentially unremarkable. She did have some ketones in the urine but did not look infected. CT brain with some chronic ischemic changes but no acute. CT abdomen pelvis showed mild wall thickening and mucosal enhancement throughout the colon suggesting infection versus an inflammatory or ischemic colitis. No other acute findings in the abdomen. Patient does report that he is also had diarrhea for about that period of time which is unusual for him. His states she still has about 1 episode a day and then she will give Imodium so he is only had about 1 episode each day. Is also had some nausea vomiting few times throughout this past few days. His has had to crush his pills to make it easier for him to swallow. Denies any pain with swallowing. He had an EGD and a colonoscopy 6 to [address] Rushing says were unremarkable. 01/12 No overnight event or new complaints other than poor sleep. Patient had a good breakfast this morning. Patient states still having diarrhea. C. difficile study negative. Fecal leukocyte rare. Stool cultures for enteric pathogens negative. Sometime after her rounded on him the nurse reported he had a large bloody bowel movement, confirmed guaiac positive. Stat H&H ordered. Will discuss with general surgery for possible colonoscopy. 01/13 Patient slept well. No new complaints other than he did have another bloody bowel movement this morning. Hemoglobin has dropped to 11.5 but part of that is delusional. Patient does follow with Dr. Rushing and if he remains stable then will likely have him follow-up with [facility] for endoscopy. 01/14 Patient who has a history of seizures did have a brief subtle seizure last night. With a very brief postictal period. Patient otherwise doing well for remainder of night and doing well this morning. No bowel movement since yesterday morning. Patient does not feel like he is found to have a bowel movement and will await bowel movement to see bleeding s tatus. 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 Review of Systems: denies headache/fever/chills/nausea/vomiting/chest or abdominal pain/cough/dyspnea. Otherwise see above. Constitutional Vitals: Vital Signs Temp Pulse Resp BP Pulse Ox O2 Del Method O2 Flow Rate 97.6 F 54 L 10 L 100/59 96 4 01/14/22 00:00 01/14/22 07:01 01/14/22 07:01 01/14/22 07:01 01/14/22 07:01 01/14/22 07:01 01/14/22 07:01 Period Temp Pulse Resp BP Sys/Kwon Pulse Ox O2 Del Method O2 Flow Rate Last 24 Hr 97.1 F-98.0 F 52-71 9-21 81-111/52-86 92-98 BiPAP-Room Air 4- 4 Intake and Output 01/13/22 01/14/22 01/14/22 22:59 05:59 13:59 Intake Total Output Total Balance Weight Intake & Output: Intake & Output 01/13/22 01/14/22 01/14/22 22:59 05:59 13:59 Intake Total Output Total Balance Weight Intake: Oral Output: Void Amount Other: Meal Percent of Meal Consumed Feeding Ability Urine Appearance Urine Color Urine Odor Exam: General: Alert, Awake, No acute Distress Eyes/N/T: EOMI, Head/Neck: neck supple, CV: RRR, No murmurs, Pulm: Clear b/l, no wheezing/rhonchi/rales Abd: soft, nontender, +BS x4 Ext: no clubbing/cyanosis, b/l LE edema Neuro: Alert, no focal deficits, moves all extremities, Skin: warm/dry OBJ DATA Labs CBC & Chem 7: 01/14/22 05:40 01/13/22 05:57 Labs: Abnormal Lab Results 01/14/22 01/13/22 01/13/22 05:40 05:57 05:57 RBC Hgb 11.4 L 11.5 L Hct 34.8 L 35.3 L RDW Immature Gran % (Auto) [place] % (Auto) Immature Gran # RBC Morphology Anisocytosis POC VBG pCO2 at Temp POC VBG HCO3 POC VBG Total CO2 POC VBG Base Excess Carbon Dioxide POC Total CO2 Anion Gap 3.0 L Calcium 7.8 L AST Lactate Dehydrogenase 121 L C-Reactive Protein NT-Pro-B Natriuret Pep Total Protein 3.8 L Albumin 1.9 L Globulin 1.9 L Albumin/Globulin Ratio Lipase Procalcitonin Urine Ketones Urine Urobilinogen 01/12/22 01/12/22 01/12/22 17:20 11:48 05:51 RBC Hgb 13.0 L 12.8 L Hct 39.9 L RDW Immature Gran % (Auto) [place] % (Auto) Immature Gran # RBC Morphology Anisocytosis POC VBG pCO2 at Temp POC VBG HCO3 POC VBG Total CO2 POC VBG Base Excess Carbon Dioxide 20 L POC Total CO2 Anion Gap Calcium 7.8 L AST 41 H Lactate Dehydrogenase C-Reactive Protein NT-Pro-B Natriuret Pep Total Protein 4.6 L Albumin 2.2 L Globulin Albumin/Globulin Ratio 0.9 L Lipase Procalcitonin Urine Ketones Urine Urobilinogen 01/12/22 01/11/22 01/11/22 05:51 22:03 18:54 RBC 4.18 L Hgb 13.2 L Hct RDW 17.4 H Immature Gran % (Auto) [place] % (Auto) Immature Gran # RBC Morphology Abnormal A Anisocytosis 1+ A POC VBG pCO2 at Temp 40.2 L POC VBG HCO3 21.9 L POC VBG Total CO2 23.0 L POC VBG Base Excess -4.0 L Carbon Dioxide POC Total CO2 Anion Gap Calcium AST Lactate Dehydrogenase C-Reactive Protein 1.50 H NT-Pro-B Natriuret Pep Total Protein Albumin Globulin Albumin/Globulin Ratio Lipase Procalcitonin Urine Ketones Urine Urobilinogen 01/11/22 01/11/22 01/11/22 18:37 18:37 16:30 RBC Hgb Hct RDW Immature Gran % (Auto) [place] % (Auto) Immature Gran # RBC Morphology Anisocytosis POC VBG pCO2 at Temp POC VBG HCO3 POC VBG Total CO2 POC VBG Base Excess Carbon Dioxide POC Total CO2 Anion Gap Calcium AST Lactate Dehydrogenase C-Reactive Protein NT-Pro-B Natriuret Pep 1686.0 H Total Protein Albumin Globulin Albumin/Globulin Ratio Lipase Procalcitonin 0.10 H Urine Ketones 5 A Urine Urobilinogen 2.0 A 01/11/22 01/11/22 01/11/22 16:12 16:07 16:07 RBC 4.28 L Hgb 13.6 L Hct RDW 17.1 H Immature Gran % (Auto) 1.1 H [place] % (Auto) 12.7 H Immature Gran # 0.08 H RBC Morphology Anisocytosis POC VBG pCO2 at Temp POC VBG HCO3 POC VBG Total CO2 POC VBG Base Excess Carbon Dioxide POC Total CO2 20.0 L Anion Gap Calcium AST Lactate Dehydrogenase C-Reactive Protein NT-Pro-B Natriuret Pep Total Protein 5.3 L Albumin 2.6 L Globulin Albumin/Globulin Ratio Lipase 4 L Procalcitonin Urine Ketones Urine Urobilinogen Meds: Medications Acetaminophen (Acetaminophen 325 Mg Tablet) 650 mg PO Q6HP PRN; Protocol PRN Reason: Per Pain Protocol/Fever > 101 Albuterol/Ipratropium (Ipratropium/Albuterol 3 Ml Ampul.Neb) 3 ml NEB Q4HP PRN PRN Reason: Shortness Of Breath Amiodarone HCl (Amiodarone Hcl 200 Mg Tablet) 200 mg PO DAILY [facility] Last Admin: 01/13/22 09:40 Dose: 200 mg Carbidopa/Levodopa (Carbidopa/Levodopa 25/100 Tablet) 3 tab PO QID [facility] Last Admin: 01/13/22 21:34 Dose: 3 tab Colchicine (Colchicine 0.6 Mg Capsule) 0.6 mg PO QDAY [facility] Last Admin: 01/13/22 09:40 Dose: 0.6 mg Divalproex Sodium (Divalproex Sodium 250 Mg Tablet) 500 mg PO TID [facility] Last Admin: 01/13/22 21:35 Dose: 500 mg Furosemide (Furosemide 20 Mg Tablet) 10 mg PO QDAY [facility] Last Admin: 01/13/22 12:35 Dose: Not Given Potassium Chloride 40 meq/ (Dextrose) 520 mls @ 130 mls/hr IV UD PRN PRN Reason: Potassium < 3 Magnesium Sulfate (Magnesium Sulfate) 2 gm in 50 mls @ 50 mls/hr IV UD PRN PRN Reason: Magnesium </= 1.6 Lamotrigine (Lamotrigine 100 Mg Tablet) 150 mg PO BID [facility] Last Admin: 01/13/22 21:34 Dose: 150 mg Levothyroxine Sodium (Levothyroxine 75 Mcg Tablet) 75 mcg PO DAILY [facility] Last Admin: 01/13/22 09:46 Dose: 75 mcg Lidocaine (Lidocaine Patch) 1 patch TOPICAL DAILYP PRN PRN Reason: Pain Lorazepam (Lorazepam 2 Mg/Ml Vial) 2 mg IV Q1HP PRN PRN Reason: ANXIETY/SEDATION Melatonin (Melatonin 3 Mg Tablet) 9 mg PO HS [facility] Last Admin: 01/13/22 21:33 Dose: 9 mg Methocarbamol (Methocarbamol 750 Mg Tablet) 750 mg PO QID [facility] Last Admin: 01/13/22 21:34 Dose: 750 mg Olanzapine (Olanzapine 5 Mg Tablet) 5 mg PO QHS [facility] Last Admin: 01/13/22 21:33 Dose: 5 mg Ondansetron HCl (Ondansetron 4 Mg/2 Ml Vial) 4 mg IV Q4HP PRN PRN Reason: Nausea And Vomiting Last Admin: 01/13/22 21:33 Dose: 4 mg Oxycodone HCl (Oxycodone 10 Mg Tab.Er.12h) 10 mg PO TIDP PRN; Protocol PRN Reason: Pain Last Admin: 01/14/22 00:27 Dose: 10 mg Pantoprazole Sodium (Pantoprazole 40 Mg Tablet) 40 mg PO QAMAC [facility] Last Admin: 01/13/22 07:45 Dose: 40 mg Dexlansoprazole [ (Dexilant] 60 Mg) 1 dose PO BID [facility] Last Admin: 01/13/22 21:35 Dose: 1 dose Istradefylline [ Nourianz] 40 Mg Tablet) 1 dose PO QDAY [facility] Last Admin: 01/13/22 09:45 Dose: 1 dose Mometasone 200 Mcg/ (Actuation) 2 dose [place] BID [facility] Last Admin: 01/13/22 21:37 Dose: Not Given Naloxone 4 Mg/ (Actuation [place]) 1 dose [place] Q2M PRN PRN Reason: EXCESSIVE SEDATION Olodaterol 2.5 Mcg/ (Actuation) 2 dose INH DAILY [facility] Last Admin: 01/13/22 09:45 Dose: Not Given (Opicapone [Ongentys (] 50 Mg) 1 dose PO QHS [facility] Last Admin: 01/13/22 21:37 Dose: Not Given Vibegron [Gemtesa] (75 Mg Tablet) 1 dose PO QDAY [facility] Last Admin: 01/13/22 09:45 Dose: 1 dose Topiramate 100 Mg Capsule,Sprinkle,Er 24hr 1 dose PO HS [facility] Last Admin: 01/13/22 21:36 Dose: 1 dose Topiramate 200 Mg (Capsule,Sprinkle,Er) 2 dose PO [facility] Last Admin: 01/13/22 21:35 Dose: 2 dose Potassium Chloride (Potassium Chloride 20 Meq Tablet) 40 meq PO UD PRN PRN Reason: Potssium is 3-3.5 Last Admin: 01/12/22 01:32 Dose: 40 meq Potassium Chloride (Potassium Chloride 20 Meq Tablet) 40 meq PO UD PRN PRN Reason: Potassium < 3 Sodium Chloride (0.9 % Sodium Chloride 10 Ml Syringe) 10 ml IV Q8 [facility] Last Admin: 01/14/22 05:46 Dose: 10 ml Tamsulosin HCl (Tamsulosin 0.4 Mg Capsule) 0.8 mg PO QHS [facility] Last Admin: 01/13/22 21:34 Dose: 0.8 mg A/P Narrative A/P Narrative: A: *Colitis w/diarrhea which subsequently became bloody: ?ischemic -does not appear to be infectious;low pct, no leukocytosis or fever, lactate wnl, stool cx's neg *GI Bleed: appears lower and likely 2/2 diverticulosis vs watershed ischemic -episode this morning. *Generalized weakness/deconditioning/poor appetite *Hypotension: improved with IVF, does drops some while sleeping, asymptomatic *Volume depletion: improved *Central Sleep Apnea: On BiPAP with 4L O2 while sleeping *COPD(not on o2 while awake): *A. fib, chronic: Stopped taking Eliquis because of fall risk after discussion with physician *Parkinson's: *Seizure d/o: *Depression/anxiety: *Hypothyroidism: tsh wnl *GERD: *chronic LE wounds: follows with wound care P: -s/p IVF -monitor for further bleeding -discussed with surgeon, will monitor for further bleeding after lovenox stopped, if further bleeding occurs and needing therapeutic/diagnostic endoscopy then pt will need to be shipped where GI is available. -monitor H&H -monitor bp closely -Continue home amiodarone -wound care -home bipap -dietary -PT/OT -CM for placement needs versus C -ppx: Lovenox(hold, and changed to SCD) / home ppi Time Spent With Patient Time: Total time spent is greater than 50% in coordination of care (as documented) at patient's floor/unit and/or counseling patient: Total time spent with greater than 50% in coordination of care (as documented) at patient's floor/unit and/or counseling patient:: 25 - 35 minutes
[2022-01-14] MEDS: PANTOPRAZOLE 40 MG TABLET PO SCH (08:11)
[2022-01-14] MEDS: AMIODARONE HCL 200 MG TABLET PO SCH (08:41)
[2022-01-14] MEDS: COLCHICINE 0.6 MG CAPSULE PO SCH (08:41)
[2022-01-14] MEDS: DIVALPROEX SODIUM 250 MG TABLET PO SCH ×2 (08:41→15:03)
[2022-01-14] MEDS: lamoTRIgine 100 MG TABLET PO SCH (08:42)
[2022-01-14] MEDS: [UNRECOGNIZED DRUG - OTHER] PO SCH (08:42)
[2022-01-14] MEDS: FUROSEMIDE 20 MG TABLET PO SCH (08:42)
[2022-01-14] MEDS: TIOTROPIUM INH SCH (08:43)
[2022-01-14] MEDS: CARBIDOPA/LEVODOPA 25/100 TABLET PO SCH ×3 (08:43→16:28)
[2022-01-14] MEDS: Vibegron [Gemtesa] 75 mg tablet PO SCH (08:43)
[2022-01-14] MEDS: OLODATEROL INH SCH (08:43)
[2022-01-14] MEDS: MOMETASONE NAS SCH (08:43)
[2022-01-14] MEDS: METHOCARBAMOL 750 MG TABLET PO SCH ×3 (08:43→15:08)
[2022-01-14] MEDS: LEVOTHYROXINE 75 MCG TABLET PO SCH (08:44)
[2022-01-14] MEDS: ONDANSETRON 4 MG/2 ML VIAL IV PRN (08:57)
--- NOTE | 2022-01-15 00:36 | Emergency Department Note ---
HPI General Chief complaint: Weakness Stated complaint: UTI Time Seen by Provider: 01/11/22 15:27 Source: patient Mode of arrival: wheelchair Limitations: no limitations History of Present Illness HPI Narrative: Narrative: Patient is a 66-year-old male with a complex medical history who presents to the emergency department due to weakness, decreased appetite, and decreased frequency of urination. Patient's states that he has had decreased energy and weakness. She states that he has had decreased appetite as well. She is concerned because he previously was found to have pericarditis, and this was not initially found. She states that he has been taking his colchicine. She states that there was concern for heart failure as well, but that he is being treated for this. She denies any increase in bilateral lower extremity swelling, and any shortness of breath. She denies any other concerns at this time. Related Data Home Medications Medication Instructions Recorded Confirmed levothyroxine 75 mcg tablet 75 mcg PO DAILY 08/14/17 01/12/22 docusate sodium 100 mg capsule 200 mg PO BID 05/09/18 01/12/22 melatonin 10 mg tablet,extended 10 mg PO HS 01/22/20 01/12/22 release,multiphase olanzapine 5 mg tablet 5 mg PO QHS 01/22/20 01/12/22 lidocaine 5 % topical patch 1 patch topical DAILYP PRN Pain 03/03/20 01/12/22 (Lidoderm) naloxone 4 mg/actuation nasal spray 1 spray intranasal Q2M PRN 03/03/20 01/12/22 EXCESSIVE SEDATION urea 10 % lotion 1 applic topical BID 03/03/20 01/12/22 lubiprostone 24 mcg capsule 24 mcg PO BIDCC 03/31/20 01/12/22 (Amitiza) divalproex 500 mg tablet,delayed 500 mg PO TID 05/20/20 01/12/22 release aripiprazole 10 mg tablet 10 mg PO HS 09/27/20 01/12/22 istradefylline 40 mg tablet 40 mg PO QDAY 11/16/20 01/12/22 (Nourianz) dexlansoprazole 60 mg 60 mg PO BID 05/05/21 01/12/22 capsule,biphase delayed release (Dexilant) diclofenac sodium 1 % topical gel See Rx Instructions topical QID 06/05/21 01/12/22 disposable gloves (Nitrile Exam 06/05/21 01/12/22 Gloves) facial-body wipes 06/05/21 01/12/22 incontinence pad, liner, disp 06/05/21 01/12/22 (Poise Pads) methyl salicylate-menthol 30 % topical QID 06/05/21 01/12/22 mometasone 200 mcg/actuation HFA 2 puff inhalation BID 06/05/21 01/12/22 aerosol inhaler underpads 23" X 36" (Air Permeable 06/05/21 01/12/22 Underpad) vibegron 75 mg tablet (Gemtesa) 75 mg PO QDAY 08/25/21 01/12/22 carbidopa 25 mg-levodopa 100 mg 3 tab PO QID 09/14/21 01/12/22 tablet opicapone 50 mg capsule (Ongentys) 50 mg PO QHS 09/14/21 01/12/22 amiodarone 200 mg tablet 200 mg PO DAILY 11/23/21 01/12/22 colchicine 0.6 mg tablet 0.6 mg PO QDAY 11/23/21 01/12/22 lamotrigine 150 mg tablet 150 mg PO BID 11/23/21 01/12/22 ondansetron 4 mg disintegrating 4 mg translingual Q4H PRN Nausea 11/23/21 01/12/22 tablet oxycodone 10 mg tablet,crush 10 mg PO TID 11/23/21 01/12/22 resistant,extended release 12 hr (OxyContin) topiramate 100 mg capsule 100 mg PO HS 11/23/21 01/12/22 sprinkle,extended release 24 hr topiramate 200 mg capsule 400 mg PO HS 11/23/21 01/12/22 sprinkle,extended release 24 hr furosemide 20 mg tablet 10 mg PO QDAY 12/22/21 01/12/22 acetaminophen 650 mg QID 01/12/22 01/12/22 bisacodyl 5 mg tablet,delayed 10 mg PO ONCE 01/12/22 01/12/22 release (Dulcolax (bisacodyl)) cholecalciferol (vitamin D3) 50 50 mcg PO QDAY 01/12/22 01/12/22 mcg (2,000 unit) tablet cyanocobalamin (vitamin B-12) 500 500 mcg PO QDAY 01/12/22 01/12/22 mcg tablet ferrous gluconate 324 mg (37.5 mg 324 mg PO QDAY 01/12/22 01/12/22 iron) tablet fluticasone propionate 50 2 spray intranasal QDAY 01/12/22 01/12/22 mcg/actuation nasal spray,suspension magnesium oxide 324 mg PO DAILY 01/12/22 01/12/22 sucralfate 1 gram tablet 1 g PO QID 01/12/22 01/12/22 tamsulosin 0.4 mg capsule 0.8 mg PO QHS 01/12/22 01/12/22 tiotropium 2.5 mcg-olodaterol 2.5 2 puff inhalation QDAY 01/14/22 01/14/22 mcg/actuation mist for inhalation (Stiolto Respimat) Previous Rx's Medication Instructions Recorded Bipap with back up rate #1 ea 05/11/20 Pulse oximeter device #1 ea 05/25/21 methocarbamol 750 mg tablet 750 mg PO QIDP PRN spasm #1 tab 01/14/22 Allergies Allergy/AdvReac Type Severity Reaction Status Date / Time amantadine Allergy Mild Rash Verified 01/13/22 20:14 gabapentin Allergy Unknown Unknown Verified 01/12/22 01:16 NSAIDS (Non-Steroidal Allergy Unknown Unknown Verified 01/13/22 20:14 Anti-Inflamma adhesive AdvReac Mild Blister Verified 01/13/22 20:14 [place] AdvReac Mild unstable Verified 01/12/22 01:16 vitals sertraline [From Zoloft] AdvReac Mild HEADACHE Verified 01/12/22 01:16 Review of Systems ROS ROS Narrative: Narrative: Constitutional: Reports weakness (Generalized); Denies fever Eyes: Denies eye pain or vision change ENT ED: Reports rhinorrhea (Not increased over baseline); Denies throat pain or hearing loss Cardiovascular: Reports edema (Initially stated that this is not increased over baseline); Denies chest pain, dyspnea on exertion or orthopnea Respiratory: Reports cough; Denies shortness of breath Gastrointestinal: Denies abdominal pain, nausea, vomiting, diarrhea, constipation, hematochezia or melena Genitourinary: Reports other (Decreased frequency of urination); Denies dysuria, frequency, hematuria or incontinence Musculoskeletal: Denies back pain or myalgia Integumentary: Denies rash or lesions Neurological: Reports weakness (Generalized); Denies headache, numbness, confusion or dizziness Endocrine: Reports fatigue; Denies polyuria Hematological/Lymphatic: Denies easy bleeding or easy bruising PFS Narrative Patient History Narrative: Narrative: Medical/Surgical/Family History All Active Problems (Updated 01/11/22 @ 21:34 by Franklyn Andrade MD) Abrasion (Chronic) Acute blistering eruption of skin (Chronic) Latex sensitivity (Chronic) Weakness (Chronic) Opioid dependence, uncomplicated (Chronic) Low back pain (Chronic) Pain in left ankle and joints of left foot (Chronic) Pain, joint, knee, left (Chronic) Chronic pain (Chronic) Bipolar disorder (Chronic) Parkinsons disease (Chronic) Type 2 diabetes mellitus without complications (Chronic) PTSD (post-traumatic stress disorder) (Chronic) Hypothyroidism (Chronic) History of tobacco use (Chronic) Anxiety disorder (Chronic) GERD (gastroesophageal reflux disease) (Chronic) Depression (Chronic) Spinal stenosis, lumbar region with neurogenic claudication (Chronic) Bronchitis (Chronic) Recurrent aspiration events (Chronic) Cough (Chronic) Total knee replacement status (Chronic) Knee joint replacement status (Chronic) Chest pain (Chronic) Pneumonia (Chronic) Lumbar radiculopathy (Chronic) Complex sleep apnea syndrome (Chronic) Status post total knee replacement, right (Chronic) Other specified disorder of male genital organs (Chronic) Abnormal level of hormones in specimens from male genital organs (Chronic) Borderline personality disorder (Chronic) Chronic obstructive pulmonary disease, unspecified (Chronic) Chronic sinusitis (Chronic) Constipation, unspecified (Chronic) 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) Dehydration (Chronic) Disorders of magnesium metabolism, unspecified (Chronic) Headache (Chronic) Hypogonadism (Chronic) Impaired glucose tolerance (Chronic) Impotence (Chronic) Insomnia, unspecified (Chronic) Iron deficiency (Chronic) Magnesium deficiency (Chronic) Major depressive disorder, recurrent, moderate (Chronic) Other fracture of fourth lumbar vertebra, sequela (Chronic) Other intervertebral disc degeneration, lumbar region (Chronic) Other specified abnormal findings of blood chemistry (Chronic) Other specified postprocedural states (Chronic) Pain in right knee (Chronic) Peripheral vascular disease (Chronic) Prediabetes (Chronic) Problems in relationship with spouse or partner (Chronic) Unspecified bacterial pneumonia (Chronic) Unspecified disorder of binocular vision (Chronic) Unspecified hearing loss, bilateral (Chronic) Unspecified osteoarthritis, unspecified site (Chronic) Urinary incontinence (Chronic) Vitamin B deficiency, unspecified (Chronic) Aspiration pneumonia (Chronic) Seizure disorder (Chronic) BPH NOS w/o ur obs/LUTS (Chronic) Overactive bladder (Chronic) Post-void dribbling (Chronic) Epididymal cyst (Chronic) Testicular cyst (Chronic) Urinary frequency (Chronic) Hypoxemia (Chronic) Paralyzed hemidiaphragm (Chronic) Nocturnal hypoxemia (Chronic) URI (upper respiratory infection) (Chronic) Other low back pain (Chronic) Muscle weakness (generalized) (Chronic) Chest pain (Acute) Gross hematuria (Acute) H/O renal calculi (Chronic) Aspiration into airway (Chronic) CHF (congestive heart failure) (Acute) Colitis (Acute) Medical History Abnormal level of hormones in specimens from male genital organs Abrasion Acute blistering eruption of skin Anxiety disorder Aspiration into airway Aspiration pneumonia Bipolar disorder Borderline personality disorder Bronchitis Chest pain Chronic obstructive pulmonary disease, unspecified Chronic pain Chronic sinusitis Complex sleep apnea syndrome Constipation, unspecified Conversion disorder with seizures or convulsions Cough Dehydration Depression Disorders of magnesium metabolism, unspecified GERD (gastroesophageal reflux disease) Headache History of tobacco use History of vasovasostomy Hypogonadism Hypothyroidism Hypoxemia Impaired glucose tolerance Impotence Insomnia, unspecified Iron deficiency Latex sensitivity Low back pain Magnesium deficiency Major depressive disorder, recurrent, moderate Muscle weakness (generalized) Opioid dependence, uncomplicated Other fracture of fourth lumbar vertebra, sequela Other intervertebral disc degeneration, lumbar region Other low back pain Other specified abnormal findings of blood chemistry Other specified disorder of male genital organs Pain in left ankle and joints of left foot Pain in right knee Pain, joint, knee, left Parkinsons disease Peripheral vascular disease Pneumonia Prediabetes Problems in relationship with spouse or partner PTSD (post-traumatic stress disorder) Recurrent aspiration events Seizure disorder Spinal stenosis, lumbar region with neurogenic claudication Type 2 diabetes mellitus without complications Unspecified bacterial pneumonia Unspecified disorder of binocular vision Unspecified hearing loss, bilateral Unspecified osteoarthritis, unspecified site Urinary incontinence Vitamin B deficiency, unspecified Weakness Surgical History History of adenectomy History of appendectomy 1975 History of bone graft upper jaw History of cholecystectomy History of colonoscopy History of gastric bypass History of surgery on wrist History of tonsillectomy 1958 History of tooth extraction History of vasectomy 1984 Hx of sinus surgery multiple Knee joint replacement status POD 3 s/p revision left total knee arthroplasty with liner exchange. -- PT/OT- wbat with hinged knee in place -- changed dressing and painted incision with betadine. The serous blister along the lateral aspect of the knee decompressed with removal of silver dressing. Left roof intact. Monitor and applied a dry compression dressing for today. -- Will need new hinged knee brace as the proximal portion was covered in blood. nurse aware. -- h/h, vitals- stable -- glucose has been well controlled- continue current meds -- oral pain medications- continue -- carbohydrate diet -- prophy: IS, ambulation, asa 81 bid, scd's -- dispo: plan is for rehab tomorrow. No pertinent past surgical history Other specified postprocedural states Total knee replacement status stable ; reduced fall risk. discharge Family History Father , age 49 Stroke Heart attack HTN (hypertension) Diabetes Mother HTN (hypertension) Brother HTN (hypertension) Social History Smoking Status: Former smoker Alcohol Intake Frequency: former alcohol drinker Substance Use: does not use Exam Narrative Narrative: Narrative: General Limitations: no limitations General appearance: Present alert and in no apparent distress; Absent anxious, appears intoxicated or sleepy Head Head: Present atraumatic and normocephalic Eye Eye: Present PERRL and EOMI; Absent scleral icterus or nystagmus ENT ENT: Present mucous membranes moist; Absent nasal congestion Neck Neck: Present full ROM; Absent tenderness Chest Chest: Present normal inspection and symmetric chest wall rise; Absent tenderness Respiratory Respiratory: Present normal lung sounds bilaterally; Absent respiratory distress or accessory muscle use Cardiovascular Cardiovascular: Present regular rate, normal rhythm and normal heart sounds Adbominal Abdominal: Present soft, tenderness and normal bowel sounds; Absent distention Extremities Extremities: Present normal inspection and full ROM Back Back: Present normal inspection and full ROM Neurological Neurological: Present alert, oriented X3, CN II-XII intact and reflexes normal; Absent motor sensory deficit Psychiatric Psychiatric: Present normal affect and normal mood Skin Skin: Present warm (WNL), dry and normal color Course Vital Signs Vital signs: Vital Signs Temperature 97 F 01/11/22 15:16 Pulse Rate 65 01/11/22 15:16 Respiratory Rate 14 01/11/22 15:16 Blood Pressure 93/63 01/11/22 15:16 Pulse Oximetry (%) 95 01/11/22 15:16 Oxygen Delivery Method 01/11/22 15:16 Temperature 98.2 F 01/14/22 17:01 Pulse Rate 57 L 01/14/22 17:01 Respiratory Rate 15 01/14/22 17:01 Blood Pressure 99/57 01/14/22 17:01 Pulse Oximetry (%) 94 01/14/22 17:01 Oxygen Delivery Method 01/14/22 17:01 Oxygen Flow Rate (L/min) 4 01/14/22 08:01 MDM MDM Narrative Medical decision making narrative: Narrative: Patient is a 66-year-old male who presented to the emergency department due to generalized weakness, decreased energy, and dark urine. Patient's blood pressure was borderline at presentation. After 1 L of fluids patient continues to be borderline, and has intermittently been hypotensive. Patient's labs are reassuring. Lactate and BNP are pending. CT scan does demonstrate findings consistent with colitis. Patient has received antibiotics. Patient has been signed out to Dr. Andrade. Lab Data Result diagrams: 01/14/22 13:54 01/13/22 05:57 Labs: Lab Results 01/11/22 01/11/22 01/11/22 Range/Units 16:07 16:07 16:12 WBC 7.1 (4.5-11.0) K/mcL RBC 4.28 L (4.63-6.08) M/mcL Hgb 13.6 L (13.7-17.5) g/dL Hct 41.7 (40.1-51.0) % POC Hct 44.0 (41-55) MCV 97.4 (80.0-100.0) fL MCH 31.8 (26.0-34.0) pg MCHC 32.6 (31.0-36.0) g/dL RDW 17.1 H (11.5-14.5) % Plt Count 257 (140-440) K/mcL MPV 10.8 (8.8-12.5) fL Immature Gran % (Auto) 1.1 H (0.0-0.5) % Neut % (Auto) 51.0 (38.0-78.0) % Lymph % (Auto) 33.5 (15.5-49.0) % [place] % (Auto) 12.7 H (1.0-12.0) % Eos % (Auto) 1.1 (0.0-7.0) % Baso % (Auto) 0.6 (0.0-2.0) % Lymph # (Auto) 2.38 (1.50-4.80) K/mcL [place] # (Auto) 0.90 (0.10-0.90) K/mcL Eos # (Auto) 0.08 (0.00-0.70) K/mcL Baso # (Auto) 0.04 (0.00-0.30) K/mcL Seg Neutrophils % (38-78) % Band Neutrophils % (0-10) % Lymphocytes % (15-49) % Monocytes % (Manual) (1-12) % Eosinophils % (Manual) (0-7) % Basophils % (Manual) (0-2) % Immature Gran # 0.08 H (0.00-0.05) K/mcl Absolute Neutrophils 3.63 (1.80-8.00) K/mcL Reactive Lymphocytes (0-2) % Platelet Estimate (Normal) RBC Morphology (Normal) Anisocytosis (None Seen) ESR (0-20) mm/hr POC VBG pH (7.32-7.42) POC VBG pCO2 at Temp (41-51) POC VBG pO2 (25-40) POC VBG HCO3 (24-28) POC VBG Total CO2 (25-29) POC Venous O2 Sat (40-70) POC VBG Base Excess (-2-2) VBG Lactic Acid (0.5-2) POC Sodium 137 (133-145) Sodium (133-145) mmol/L POC Potassium 3.3 (3.3-5.1) Potassium (3.3-5.1) mmol/L POC Chloride 106 (96-108) Chloride (96-108) mmol/L Carbon Dioxide (22-30) mmol/L POC Total CO2 20.0 L (22-30) Anion Gap (8.0-16.0) POC BUN 17 (6-20) BUN (8-23) mg/dL Creatinine (0.7-1.2) mg/dL POC Creatinine 0.9 (0.6-1.2) GFR Calculation Glucose (70-105) mg/dL POC Glucose 91 (70-105) Uric Acid (2.5-8.0) mg/dL Calcium (8.6-10.4) mg/dL POC WB Ioniz Calcium 1.18 (1.16-1.32) Phosphorus (2.5-4.5) mg/dL Magnesium (1.6-2.5) mg/dL Total Bilirubin 0.4 (0.1-1.0) mg/dL Direct Bilirubin < 0.2 (0-0.3) mg/dL GGT (8-61) U/L AST 36 (<40) U/L ALT < 5 (<40) U/L Alkaline Phosphatase 105 (39-117) U/L Lactate Dehydrogenase (135-225) U/L C-Reactive Protein (0.03-0.80) mg/dL NT-Pro-B Natriuret Pep (<125.0) pg/mL Total Protein 5.3 L (5.9-8.4) gm/dL Albumin 2.6 L (3.2-5.2) gm/dL Globulin 2.7 (2.2-3.7) gm/dL Albumin/Globulin Ratio (1.0-2.3) Triglycerides (<150) mg/dL Lipase 4 L (7-60) U/L Procalcitonin (<0.10) ng/mL TSH (0.27-5.01) uIU/mL Random Cortisol ug/dL Cortisol AM Sample (4.8-19.5) ug/dL Urine Color Urine Appearance (Clear) Urine pH (5.0-9.0) Ur Specific [place] (1.000-1.035) Urine Protein (Negative) mg/dL Urine Glucose (UA) (Negative) mg/dL Urine Ketones (Negative) mg/dL Urine Occult Blood (Negative) mg/dL Urine Nitrate (Negative) Urine Bilirubin (Negative) mg/dL Urine Urobilinogen mg/dL Ur Leukocyte Esterase (Negative) /uL Ur Culture Indicated? POC Troponin I (0.00-0.08) 01/11/22 01/11/22 01/11/22 Range/Units 16:15 16:30 18:37 WBC (4.5-11.0) K/mcL RBC (4.63-6.08) M/mcL Hgb (13.7-17.5) g/dL Hct (40.1-51.0) % POC Hct (41-55) MCV (80.0-100.0) fL MCH (26.0-34.0) pg MCHC (31.0-36.0) g/dL RDW (11.5-14.5) % Plt Count (140-440) K/mcL MPV (8.8-12.5) fL Immature Gran % (Auto) (0.0-0.5) % Neut % (Auto) (38.0-78.0) % Lymph % (Auto) (15.5-49.0) % [place] % (Auto) (1.0-12.0) % Eos % (Auto) (0.0-7.0) % Baso % (Auto) (0.0-2.0) % Lymph # (Auto) (1.50-4.80) K/mcL [place] # (Auto) (0.10-0.90) K/mcL Eos # (Auto) (0.00-0.70) K/mcL Baso # (Auto) (0.00-0.30) K/mcL Seg Neutrophils % (38-78) % Band Neutrophils % (0-10) % Lymphocytes % (15-49) % Monocytes % (Manual) (1-12) % Eosinophils % (Manual) (0-7) % Basophils % (Manual) (0-2) % Immature Gran # (0.00-0.05) K/mcl Absolute Neutrophils (1.80-8.00) K/mcL Reactive Lymphocytes (0-2) % Platelet Estimate (Normal) RBC Morphology (Normal) Anisocytosis (None Seen) ESR (0-20) mm/hr POC VBG pH (7.32-7.42) POC VBG pCO2 at Temp (41-51) POC VBG pO2 (25-40) POC VBG HCO3 (24-28) POC VBG Total CO2 (25-29) POC Venous O2 Sat (40-70) POC VBG Base Excess (-2-2) VBG Lactic Acid (0.5-2) POC Sodium (133-145) Sodium (133-145) mmol/L POC Potassium (3.3-5.1) Potassium (3.3-5.1) mmol/L POC Chloride (96-108) Chloride (96-108) mmol/L Carbon Dioxide (22-30) mmol/L POC Total CO2 (22-30) Anion Gap (8.0-16.0) POC BUN (6-20) BUN (8-23) mg/dL Creatinine (0.7-1.2) mg/dL POC Creatinine (0.6-1.2) GFR Calculation Glucose (70-105) mg/dL POC Glucose (70-105) Uric Acid (2.5-8.0) mg/dL Calcium (8.6-10.4) mg/dL POC WB Ioniz Calcium (1.16-1.32) Phosphorus (2.5-4.5) mg/dL Magnesium (1.6-2.5) mg/dL Total Bilirubin (0.1-1.0) mg/dL Direct Bilirubin (0-0.3) mg/dL GGT (8-61) U/L AST (<40) U/L ALT (<40) U/L Alkaline Phosphatase (39-117) U/L Lactate Dehydrogenase (135-225) U/L C-Reactive Protein (0.03-0.80) mg/dL NT-Pro-B Natriuret Pep 1686.0 H (<125.0) pg/mL Total Protein (5.9-8.4) gm/dL Albumin (3.2-5.2) gm/dL Globulin (2.2-3.7) gm/dL Albumin/Globulin Ratio (1.0-2.3) Triglycerides (<150) mg/dL Lipase (7-60) U/L Procalcitonin (<0.10) ng/mL TSH (0.27-5.01) uIU/mL Random Cortisol ug/dL Cortisol AM Sample (4.8-19.5) ug/dL Urine Color [place] Urine Appearance Clear (Clear) Urine pH 5.0 (5.0-9.0) Ur Specific [place] 1.030 (1.000-1.035) Urine Protein Negative (Negative) mg/dL Urine Glucose (UA) Negative (Negative) mg/dL Urine Ketones 5 A (Negative) mg/dL Urine Occult Blood Negative (Negative) mg/dL Urine Nitrate Negative (Negative) Urine Bilirubin Negative (Negative) mg/dL Urine Urobilinogen 2.0 A mg/dL Ur Leukocyte Esterase Negative (Negative) /uL Ur Culture Indicated? No POC Troponin I 0.03 (0.00-0.08) 01/11/22 01/11/22 01/11/22 Range/Units 18:37 18:54 18:55 WBC (4.5-11.0) K/mcL RBC (4.63-6.08) M/mcL Hgb (13.7-17.5) g/dL Hct (40.1-51.0) % POC Hct (41-55) MCV (80.0-100.0) fL MCH (26.0-34.0) pg MCHC (31.0-36.0) g/dL RDW (11.5-14.5) % Plt Count (140-440) K/mcL MPV (8.8-12.5) fL Immature Gran % (Auto) (0.0-0.5) % Neut % (Auto) (38.0-78.0) % Lymph % (Auto) (15.5-49.0) % [place] % (Auto) (1.0-12.0) % Eos % (Auto) (0.0-7.0) % Baso % (Auto) (0.0-2.0) % Lymph # (Auto) (1.50-4.80) K/mcL [place] # (Auto) (0.10-0.90) K/mcL Eos # (Auto) (0.00-0.70) K/mcL Baso # (Auto) (0.00-0.30) K/mcL Seg Neutrophils % (38-78) % Band Neutrophils % (0-10) % Lymphocytes % (15-49) % Monocytes % (Manual) (1-12) % Eosinophils % (Manual) (0-7) % Basophils % (Manual) (0-2) % Immature Gran # (0.00-0.05) K/mcl Absolute Neutrophils (1.80-8.00) K/mcL Reactive Lymphocytes (0-2) % Platelet Estimate (Normal) RBC Morphology (Normal) Anisocytosis (None Seen) ESR (0-20) mm/hr POC VBG pH 7.34 (7.32-7.42) POC VBG pCO2 at Temp 40.2 L (41-51) POC VBG pO2 28 (25-40) POC VBG HCO3 21.9 L (24-28) POC VBG Total CO2 23.0 L (25-29) POC Venous O2 Sat 50.0 (40-70) POC VBG Base Excess -4.0 L (-2-2) VBG Lactic Acid 0.7 (0.5-2) POC Sodium (133-145) Sodium (133-145) mmol/L POC Potassium (3.3-5.1) Potassium (3.3-5.1) mmol/L POC Chloride (96-108) Chloride (96-108) mmol/L Carbon Dioxide (22-30) mmol/L POC Total CO2 (22-30) Anion Gap (8.0-16.0) POC BUN (6-20) BUN (8-23) mg/dL Creatinine (0.7-1.2) mg/dL POC Creatinine (0.6-1.2) GFR Calculation Glucose (70-105) mg/dL POC Glucose (70-105) Uric Acid (2.5-8.0) mg/dL Calcium (8.6-10.4) mg/dL POC WB Ioniz Calcium (1.16-1.32) Phosphorus (2.5-4.5) mg/dL Magnesium (1.6-2.5) mg/dL Total Bilirubin (0.1-1.0) mg/dL Direct Bilirubin (0-0.3) mg/dL GGT (8-61) U/L AST (<40) U/L ALT (<40) U/L Alkaline Phosphatase (39-117) U/L Lactate Dehydrogenase (135-225) U/L C-Reactive Protein (0.03-0.80) mg/dL NT-Pro-B Natriuret Pep (<125.0) pg/mL Total Protein (5.9-8.4) gm/dL Albumin (3.2-5.2) gm/dL Globulin (2.2-3.7) gm/dL Albumin/Globulin Ratio (1.0-2.3) Triglycerides (<150) mg/dL Lipase (7-60) U/L Procalcitonin 0.10 H (<0.10) ng/mL TSH (0.27-5.01) uIU/mL Random Cortisol ug/dL Cortisol AM Sample (4.8-19.5) ug/dL Urine Color Urine Appearance (Clear) Urine pH (5.0-9.0) Ur Specific [place] (1.000-1.035) Urine Protein (Negative) mg/dL Urine Glucose (UA) (Negative) mg/dL Urine Ketones (Negative) mg/dL Urine Occult Blood (Negative) mg/dL Urine Nitrate (Negative) Urine Bilirubin (Negative) mg/dL Urine Urobilinogen mg/dL Ur Leukocyte Esterase (Negative) /uL Ur Culture Indicated? POC Troponin I < 0.02 (0.00-0.08) 01/11/22 01/11/22 01/11/22 Range/Units 21:36 21:58 22:03 WBC (4.5-11.0) K/mcL RBC (4.63-6.08) M/mcL Hgb (13.7-17.5) g/dL Hct (40.1-51.0) % POC Hct (41-55) MCV (80.0-100.0) fL MCH (26.0-34.0) pg MCHC (31.0-36.0) g/dL RDW (11.5-14.5) % Plt Count (140-440) K/mcL MPV (8.8-12.5) fL Immature Gran % (Auto) (0.0-0.5) % Neut % (Auto) (38.0-78.0) % Lymph % (Auto) (15.5-49.0) % [place] % (Auto) (1.0-12.0) % Eos % (Auto) (0.0-7.0) % Baso % (Auto) (0.0-2.0) % Lymph # (Auto) (1.50-4.80) K/mcL [place] # (Auto) (0.10-0.90) K/mcL Eos # (Auto) (0.00-0.70) K/mcL Baso # (Auto) (0.00-0.30) K/mcL Seg Neutrophils % (38-78) % Band Neutrophils % (0-10) % Lymphocytes % (15-49) % Monocytes % (Manual) (1-12) % Eosinophils % (Manual) (0-7) % Basophils % (Manual) (0-2) % Immature Gran # (0.00-0.05) K/mcl Absolute Neutrophils (1.80-8.00) K/mcL Reactive Lymphocytes (0-2) % Platelet Estimate (Normal) RBC Morphology (Normal) Anisocytosis (None Seen) ESR (0-20) mm/hr POC VBG pH (7.32-7.42) POC VBG pCO2 at Temp (41-51) POC VBG pO2 (25-40) POC VBG HCO3 (24-28) POC VBG Total CO2 (25-29) POC Venous O2 Sat (40-70) POC VBG Base Excess (-2-2) VBG Lactic Acid (0.5-2) POC Sodium (133-145) Sodium (133-145) mmol/L POC Potassium (3.3-5.1) Potassium (3.3-5.1) mmol/L POC Chloride (96-108) Chloride (96-108) mmol/L Carbon Dioxide (22-30) mmol/L POC Total CO2 (22-30) Anion Gap (8.0-16.0) POC BUN (6-20) BUN (8-23) mg/dL Creatinine (0.7-1.2) mg/dL POC Creatinine (0.6-1.2) GFR Calculation Glucose (70-105) mg/dL POC Glucose (70-105) Uric Acid 2.7 (2.5-8.0) mg/dL Calcium (8.6-10.4) mg/dL POC WB Ioniz Calcium (1.16-1.32) Phosphorus (2.5-4.5) mg/dL Magnesium (1.6-2.5) mg/dL Total Bilirubin (0.1-1.0) mg/dL Direct Bilirubin (0-0.3) mg/dL GGT (8-61) U/L AST (<40) U/L ALT (<40) U/L Alkaline Phosphatase (39-117) U/L Lactate Dehydrogenase (135-225) U/L C-Reactive Protein 1.50 H (0.03-0.80) mg/dL NT-Pro-B Natriuret Pep (<125.0) pg/mL Total Protein (5.9-8.4) gm/dL Albumin (3.2-5.2) gm/dL Globulin (2.2-3.7) gm/dL Albumin/Globulin Ratio (1.0-2.3) Triglycerides (<150) mg/dL Lipase (7-60) U/L Procalcitonin (<0.10) ng/mL TSH 2.68 (0.27-5.01) uIU/mL Random Cortisol 10.8 ug/dL Cortisol AM Sample (4.8-19.5) ug/dL Urine Color Urine Appearance (Clear) Urine pH (5.0-9.0) Ur Specific [place] (1.000-1.035) Urine Protein (Negative) mg/dL Urine Glucose (UA) (Negative) mg/dL Urine Ketones (Negative) mg/dL Urine Occult Blood (Negative) mg/dL Urine Nitrate (Negative) Urine Bilirubin (Negative) mg/dL Urine Urobilinogen mg/dL Ur Leukocyte Esterase (Negative) /uL Ur Culture Indicated? POC Troponin I (0.00-0.08) 01/11/22 01/12/22 01/12/22 Range/Units 22:12 05:51 05:51 WBC 6.6 (4.5-11.0) K/mcL RBC 4.18 L (4.63-6.08) M/mcL Hgb 13.2 L (13.7-17.5) g/dL Hct 41.3 (40.1-51.0) % POC Hct (41-55) MCV 98.8 (80.0-100.0) fL MCH 31.6 (26.0-34.0) pg MCHC 32.0 (31.0-36.0) g/dL RDW 17.4 H (11.5-14.5) % Plt Count 253 (140-440) K/mcL MPV 10.7 (8.8-12.5) fL Immature Gran % (Auto) (0.0-0.5) % Neut % (Auto) (38.0-78.0) % Lymph % (Auto) (15.5-49.0) % [place] % (Auto) (1.0-12.0) % Eos % (Auto) (0.0-7.0) % Baso % (Auto) (0.0-2.0) % Lymph # (Auto) (1.50-4.80) K/mcL [place] # (Auto) (0.10-0.90) K/mcL Eos # (Auto) (0.00-0.70) K/mcL Baso # (Auto) (0.00-0.30) K/mcL Seg Neutrophils % 69 (38-78) % Band Neutrophils % 3 (0-10) % Lymphocytes % 15 (15-49) % Monocytes % (Manual) 10 (1-12) % Eosinophils % (Manual) 1 (0-7) % Basophils % (Manual) 1 (0-2) % Immature Gran # (0.00-0.05) K/mcl Absolute Neutrophils (1.80-8.00) K/mcL Reactive Lymphocytes 1 (0-2) % Platelet Estimate Normal (Normal) RBC Morphology Abnormal A (Normal) Anisocytosis 1+ A (None Seen) ESR 8 (0-20) mm/hr POC VBG pH (7.32-7.42) POC VBG pCO2 at Temp (41-51) POC VBG pO2 (25-40) POC VBG HCO3 (24-28) POC VBG Total CO2 (25-29) POC Venous O2 Sat (40-70) POC VBG Base Excess (-2-2) VBG Lactic Acid (0.5-2) POC Sodium (133-145) Sodium 137 (133-145) mmol/L POC Potassium (3.3-5.1) Potassium 3.7 (3.3-5.1) mmol/L POC Chloride (96-108) Chloride 108 (96-108) mmol/L Carbon Dioxide 20 L (22-30) mmol/L POC Total CO2 (22-30) Anion Gap 9.0 (8.0-16.0) POC BUN (6-20) BUN 14 (8-23) mg/dL Creatinine 0.9 (0.7-1.2) mg/dL POC Creatinine (0.6-1.2) GFR Calculation 87 Glucose 78 (70-105) mg/dL POC Glucose (70-105) Uric Acid 3.0 (2.5-8.0) mg/dL Calcium 7.8 L (8.6-10.4) mg/dL POC WB Ioniz Calcium (1.16-1.32) Phosphorus 3.1 (2.5-4.5) mg/dL Magnesium 2.0 (1.6-2.5) mg/dL Total Bilirubin 0.3 (0.1-1.0) mg/dL Direct Bilirubin < 0.2 (0-0.3) mg/dL GGT 39 (8-61) U/L AST 41 H (<40) U/L ALT 8 (<40) U/L Alkaline Phosphatase 107 (39-117) U/L Lactate Dehydrogenase 200 (135-225) U/L C-Reactive Protein (0.03-0.80) mg/dL NT-Pro-B Natriuret Pep (<125.0) pg/mL Total Protein 4.6 L (5.9-8.4) gm/dL Albumin 2.2 L (3.2-5.2) gm/dL Globulin 2.4 (2.2-3.7) gm/dL Albumin/Globulin Ratio 0.9 L (1.0-2.3) Triglycerides 83 (<150) mg/dL Lipase (7-60) U/L Procalcitonin (<0.10) ng/mL TSH (0.27-5.01) uIU/mL Random Cortisol ug/dL Cortisol AM Sample (4.8-19.5) ug/dL Urine Color Urine Appearance (Clear) Urine pH (5.0-9.0) Ur Specific [place] (1.000-1.035) Urine Protein (Negative) mg/dL Urine Glucose (UA) (Negative) mg/dL Urine Ketones (Negative) mg/dL Urine Occult Blood (Negative) mg/dL Urine Nitrate (Negative) Urine Bilirubin (Negative) mg/dL Urine Urobilinogen mg/dL Ur Leukocyte Esterase (Negative) /uL Ur Culture Indicated? POC Troponin I (0.00-0.08) 01/12/22 01/12/22 01/12/22 Range/Units 05:51 11:48 17:20 WBC (4.5-11.0) K/mcL RBC (4.63-6.08) M/mcL Hgb 12.8 L 13.0 L (13.7-17.5) g/dL Hct 39.9 L 41.1 (40.1-51.0) % POC Hct (41-55) MCV (80.0-100.0) fL MCH (26.0-34.0) pg MCHC (31.0-36.0) g/dL RDW (11.5-14.5) % Plt Count (140-440) K/mcL MPV (8.8-12.5) fL Immature Gran % (Auto) (0.0-0.5) % Neut % (Auto) (38.0-78.0) % Lymph % (Auto) (15.5-49.0) % [place] % (Auto) (1.0-12.0) % Eos % (Auto) (0.0-7.0) % Baso % (Auto) (0.0-2.0) % Lymph # (Auto) (1.50-4.80) K/mcL [place] # (Auto) (0.10-0.90) K/mcL Eos # (Auto) (0.00-0.70) K/mcL Baso # (Auto) (0.00-0.30) K/mcL Seg Neutrophils % (38-78) % Band Neutrophils % (0-10) % Lymphocytes % (15-49) % Monocytes % (Manual) (1-12) % Eosinophils % (Manual) (0-7) % Basophils % (Manual) (0-2) % Immature Gran # (0.00-0.05) K/mcl Absolute Neutrophils (1.80-8.00) K/mcL Reactive Lymphocytes (0-2) % Platelet Estimate (Normal) RBC Morphology (Normal) Anisocytosis (None Seen) ESR (0-20) mm/hr POC VBG pH (7.32-7.42) POC VBG pCO2 at Temp (41-51) POC VBG pO2 (25-40) POC VBG HCO3 (24-28) POC VBG Total CO2 (25-29) POC Venous O2 Sat (40-70) POC VBG Base Excess (-2-2) VBG Lactic Acid (0.5-2) POC Sodium (133-145) Sodium (133-145) mmol/L POC Potassium (3.3-5.1) Potassium (3.3-5.1) mmol/L POC Chloride (96-108) Chloride (96-108) mmol/L Carbon Dioxide (22-30) mmol/L POC Total CO2 (22-30) Anion Gap (8.0-16.0) POC BUN (6-20) BUN (8-23) mg/dL Creatinine (0.7-1.2) mg/dL POC Creatinine (0.6-1.2) GFR Calculation Glucose (70-105) mg/dL POC Glucose (70-105) Uric Acid (2.5-8.0) mg/dL Calcium (8.6-10.4) mg/dL POC WB Ioniz Calcium (1.16-1.32) Phosphorus (2.5-4.5) mg/dL Magnesium (1.6-2.5) mg/dL Total Bilirubin (0.1-1.0) mg/dL Direct Bilirubin (0-0.3) mg/dL GGT (8-61) U/L AST (<40) U/L ALT (<40) U/L Alkaline Phosphatase (39-117) U/L Lactate Dehydrogenase (135-225) U/L C-Reactive Protein (0.03-0.80) mg/dL NT-Pro-B Natriuret Pep (<125.0) pg/mL Total Protein (5.9-8.4) gm/dL Albumin (3.2-5.2) gm/dL Globulin (2.2-3.7) gm/dL Albumin/Globulin Ratio (1.0-2.3) Triglycerides (<150) mg/dL Lipase (7-60) U/L Procalcitonin (<0.10) ng/mL TSH (0.27-5.01) uIU/mL Random Cortisol ug/dL Cortisol AM Sample 18.0 (4.8-19.5) ug/dL Urine Color Urine Appearance (Clear) Urine pH (5.0-9.0) Ur Specific [place] (1.000-1.035) Urine Protein (Negative) mg/dL Urine Glucose (UA) (Negative) mg/dL Urine Ketones (Negative) mg/dL Urine Occult Blood (Negative) mg/dL Urine Nitrate (Negative) Urine Bilirubin (Negative) mg/dL Urine Urobilinogen mg/dL Ur Leukocyte Esterase (Negative) /uL Ur Culture Indicated? POC Troponin I (0.00-0.08) ED POC Tests ED POC Tests: HILDA - SARS Antigen Negative Discharge Plan Patient/Caregiver Discharge Instructions Pt seen by FLOOR RENOVATOR/PA only: No Clinical Impression: Weakness, Colitis CHF (congestive heart failure) Qualifiers: Heart failure type: unspecified Heart failure chronicity: unspecified Qualified Code(s): I50.9 - Heart failure, unspecified Activity: increase activity as tolerated Patient Disposition: Xfer As Inpt ([facility]) Discharge Date/Time: 01/11/22 23:21
== END 2022-01-14 16:55 | disposition home health service (06) | DRG 393 ==
LOC: ICU 15:10 → ED 15:10 → ICU 23:21
PROVIDERS: ADMIT Internal Medicine; ATTEND Internal Medicine